=== PATIENT | female | born 1965 | race Caucasian/White ===

== ENCOUNTER 2019-02-19 19:00 | Inpatient (IN) | payer BC ==
--- OUTSIDE RECORDS SUMMARY | 2019-02-19 19:01 | XMS REPORT ---
:1965 [facility] [address] [place] [address] Care Team Providers Name Role Phone Unavailable Unavailable Unavailable Payers Payer Name Policy Type Policy Number Effective Date Expiration Date Problems This patient has no known problems. Allergies, Adverse Reactions, Alerts Allergy Allergy Status Severity Reaction(s) Onset Inactive Treating Comments Name Type Date Date Clinician No Known DA Active U 2019-01 Allergies 11 00:00:0 0 Medications This patient has no known medications. Results Test Description Test Time Test Comments Text Results Atomic Results Result Comments BASIC METABOLIC PANEL 2019-02-10 06:30:00 Test Item Value Reference Range Comments SODIUM (test code=NA) 140 mmol/L 136-145 POTASSIUM (test code=K) 4.5 mmol/L 3.5-5.1 CHLORIDE (test code=CL) 104.0 mmol/L 98-107 CARBON DIOXIDE (test code=CO2) 26.1 mmol/L 21-32 GLUCOSE (test code=GLU) 102 mg/dL 70-110 BLOOD UREA NITROGEN (test 15 mg/dL 7-18 code=BUN) GLOMERULAR FILTRATION RATE (test 45.3 >60 Unit of measure: mL/min/1.73 code=GFR) [id number] Range:Healthy Adults >90 mL/min/1.73 m2 For Chronic Kidney Disease: Stage II Mild Decrease in GFR 60-90 Stage III Moderate Decrease in GFR 30-59 Stage IV Severe Decrease in GFR 15-29 Stage V Kidney Failure <15 CREATININE (test code=CREAT) 1.23 mg/dL 0.55-1.30 CALCIUM (test code=CA) 8.5 mg/dL 8.2-10.1 HGB [id number] 06:07:00 Test Item Value Reference Range Comments HEMOGLOBIN (test code=HGB) 11.6 g/dL 12-16 HEMATOCRIT (test code=HCT) 36.4 % 37-47 PROTHROMBIN [id number] 14:21:00 Test Item Value Reference Range Comments PROTHROMBIN TIME PATIENT 11.7 secs 10.1-12.5 (test code=PTP) INTERNATIONAL NORMAL RATIO 1.05 <2.0 RECOMMENDED THERAPEUTIC RANGE (test code=INR) FOR ORAL ANTICOAGULANTTREATMENT: CONDITION INRProphylaxis of venous thrombosis in 2.0 - 3.0 high-risk medical or surgical patientsTreatment of venous thrombosis 2.0 - 3.0Prevention of embolism 2.0 - 3.0Prevention of recurrent embolism, or 3.0 - 4.5 patients with mechanical prosthetic intravascular valves IS PATIENT ON ANTICOAGULANTS ? [facility] been notified if Patient is on Heparin Drip? NOIf Yes, orderCBC, OCCULT BLOOD, PT every other day NTHROMBOPLASTIN TIME [id number] 14:21:00 Test Item Value Reference Range Comments PTT ACTIVATED (test 42.3 secs 24.9-37.0 VERIFIED BY REPEAT code=APTT) ANALYSIS.CRITICAL VALUE CALLED TO [facility] WITH ' OFFICEREAD BACK & CONFIRMED? TESSY HERNANDEZAEG 01/26/19 1420 IS PATIENT ON ANTICOAGULANTS ? [facility] been notified if Patient is on Heparin Drip? NOIf Yes, orderCBC, OCCULT BLOOD, PT every other day NCOMPREHENSIVE METABOLIC [id number] 13:08:00 Test Item Value Reference Range Comments SODIUM (test code=NA) 144 mmol/L 136-145 POTASSIUM (test code=K) 4.3 mmol/L 3.5-5.1 CHLORIDE (test code=CL) 107.0 mmol/L 98-107 CARBON DIOXIDE (test code=CO2) 33.8 mmol/L 21-32 GLUCOSE (test code=GLU) 79 mg/dL 70-110 BLOOD UREA NITROGEN (test 18 mg/dL 7-18 code=BUN) GLOMERULAR FILTRATION RATE 53.8 >60 Unit of measure: (test code=GFR) mL/min/1.73 [id number] Range:Healthy Adults >90 mL/min/1.73 m2 For Chronic Kidney Disease: Stage II Mild Decrease in GFR 60-90 Stage III Moderate Decrease in GFR 30-59 Stage IV Severe Decrease in GFR 15-29 Stage V Kidney Failure <15 CREATININE (test code=CREAT) 1.06 mg/dL 0.55-1.30 TOTAL PROTEIN (test code=PROT) 7.0 g/dL 6.4-8.2 ALBUMIN (test code=ALB) 3.6 g/dL 3.4-5.0 GLOBULIN (test code=GLOB) 3.4 g/dL 2.2-4.2 ALBUMIN/GLOBULIN RATIO (test 1.1 0.7-2.0 code=A/G) CALCIUM (test code=CA) 9.3 mg/dL 8.2-10.1 BILIRUBIN TOTAL (test 0.27 mg/dL 0.2-1.00 code=BILT) SGOT/AST (test code=AST) 20.0 U/L 15-37 SGPT/ALT (test code=ALT) 28.0 U/L 12-78 Please note new normal range. ALKALINE PHOSPHATASE TOTAL 103 U/L 46-116 (test code=ALKP) CBC W/AUTO [id number] 12:29:00 Test Item Value Reference Range Comments WHITE BLOOD CELL (test code=WBC) 7.9 K/mm3 5.8-11.0 RED BLOOD CELL (test code=RBC) 4.88 M/mm3 4.2-5.4 HEMOGLOBIN (test code=HGB) 12.8 g/dL 12-16 HEMATOCRIT (test code=HCT) 40.4 % 37-47 MEAN CELL VOLUME (test code=MCV) 83 fL 80-98 MEAN CELL HGB (test code=MCH) 26.2 pg 27-34 MEAN CELL HGB CONCENTRATION (test code=MCHC) 31.7 g/dL 30.8-34.1 RED CELL DISTRIBUTION WIDTH (test code=RDW) 14.1 % 11-16 PLT (test code=PLT) 176 K/mm3 130-400 MEAN PLATELET VOLUME (test code=MPV) 13.7 fL 8.9-12.1 NEUTROPHIL % (test code=NT%) 68.2 % 45-70 LYMPHOCYTE % (test code=LY%) 20.9 % 20-40 MONOCYTE % (test code=MO%) 7.8 % 3-10 EOSINOPHIL % (test code=EO%) 2.3 % 1-5 BASOPHIL % (test code=BA%) 0.5 % 0.0-1.1 NEUTROPHIL # (test code=NT#) 5.40 K/mm3 2.00-7.50 LYMPHOCYTE # (test code=LY#) 1.65 K/mm3 1.50-4.00 MONOCYTE # (test code=MO#) 0.62 K/mm3 0.2-0.8 EOSINOPHIL # (test code=EO#) 0.18 K/mm3 0.04-0.4 BASOPHIL # (test code=BA#) 0.04 K/mm3 0.02-0.10 MANUAL DIFF REQUIRED (test code=MDIFF) NO MANUAL DIFF NUCLEATED RED BLOOD CELL (test code=NRBC) 0 % 0-0
--- OUTSIDE RECORDS SUMMARY | 2019-02-19 19:02 | XMS REPORT ---
:1965 [facility] Team Providers Name Role Phone Kathy Duran Provider Role Unavailable Allergies, Adverse Reactions, Alerts Substance Reaction Event Type N.K.D.A. Info Not Available Non Drug Allergy Problems Problem Type Condition Code Onset Dates Condition Status Assessment History of kidney removal Z90.5 Active Assessment Acute coccygeal pain M53.3 Active Assessment Abnormal kidney function N28.9 Active Assessment Abnormal CBC R79.89 Active Assessment Leukocytosis, unspecified type D72.829 Active Assessment Bruising T14.8XXA Active Assessment Syncope, unspecified syncope type R55 Active Problem Pain in right hip M25.551 Active Problem Pain in right knee M25.561 Active Problem History of kidney removal Z90.5 Active Problem Onychomycosis B35.1 Active Problem Tinea pedis of both feet B35.3 Active Problem Fatigue, unspecified type R53.83 Active Problem Syncope, unspecified syncope type R55 Active Problem Leukocytosis, unspecified type D72.829 Active Problem Hypothyroidism E03.9 Active Problem Depression F32.9 Active Problem Abnormal kidney function N28.9 Active Problem Fibrocystic breast N60.19 Active Problem Acute coccygeal pain M53.3 Active Problem Decreased sex drive R68.82 Active Problem Abnormal CBC R79.89 Active Problem Bruising T14.8XXA Active Problem Hypothyroidism, unspecified type E03.9 Active Problem Obesity (BMI 30-39.9) E66.9 Active Problem Palpitations R00.2 Active Problem Depression, unspecified depression F32.9 Active type Problem Pain in left knee M25.562 Active Problem Pain in left hip M25.552 Active Problem Obesity affecting in O99.212 Active second trimester Problem Other chronic pain G89.29 Active Medications Medication Code Code Instructions Start End Status Dosage System Date Date Levothyroxine [facility] 77937923405 75 MCG Orally Active 1 tablet on Sodium Once a day an empty stomach in the morning Venlafaxine HCl [facility] 26715531763 75 MG Orally Active 1 capsule ER Once a day with food Loratadine [facility] 84691862785 10 MG Orally Dec 17, Active 1 tablet Once a day 2018 Ketoconazole [facility] 77178669975 2 % Externally May 15June Active 1 application Once a day 2018, to both feet 2018 [place] ND 39355105355 10 % May 15August 13, Active 1 application Externally 2018 2019 to toenails Once a day of both feet Calcium ND 0 600-400 Active 1 tablet with Carbonate-Vit MG-UNIT Orally meals D-Min Twice a day Multivitamin [facility] 58116300313 - Orally Active not defined Adult Diflucan [facility] 77894594555 150 MG Orally Active 1 tablet Amoxicillin-Pot [facility] 60387328436 875-125 MG Active 1 tablet Clavulanate Orally every 12 hrs Duavee [facility] 53349537100 0.45-20 MG Active 1 tablet Orally Once a day Vitamin B-12 [facility] 12077213791 100 MCG Orally Active not defined Ferrous Sulfate [facility] 72110611971 325 (65 Fe) MG Active 1 tablet Orally Once a day Results No Known Results Summary Purpose eClinicalWorks Submission
--- OUTSIDE RECORDS SUMMARY | 2019-02-19 19:02 | XMS REPORT ---
:1965 [facility] Team Providers Name Role Phone Kathy Duran Provider Role Unavailable Allergies, Adverse Reactions, Alerts Substance Reaction Event Type N.K.D.A. Info Not Available Non Drug Allergy Problems Problem Type Condition Code Onset Dates Condition Status Assessment Respiratory symptoms R09.89 Active Assessment URI, acute J06.9 Active Assessment Acute pharyngitis, unspecified J02.9 Active etiology Problem History of kidney removal Z90.5 Active Problem Pain in right knee M25.561 Active Problem Onychomycosis B35.1 Active Problem Fibrocystic breast N60.19 Active Problem Fatigue, unspecified type R53.83 Active Problem Decreased sex drive R68.82 Active Problem Tinea pedis of both feet B35.3 Active Problem Abnormal kidney function N28.9 Active Problem Syncope, unspecified syncope type R55 Active Problem Palpitations R00.2 Active Problem Hypothyroidism E03.9 Active Problem Skin lesion L98.9 Active Problem Depression F32.9 Active Problem Bruising T14.8XXA Active Problem Acute coccygeal pain M53.3 Active Problem Leukocytosis, unspecified type D72.829 Active Problem Abnormal CBC R79.89 Active Problem Obesity (BMI 30-39.9) E66.9 Active Problem Obesity affecting in O99.212 Active second trimester Problem Depression, unspecified depression F32.9 Active type Problem Hypothyroidism, unspecified type E03.9 Active Problem Pain in left hip M25.552 Active Problem Pain in right hip M25.551 Active Problem Other chronic pain G89.29 Active Problem Pain in left knee M25.562 Active Medications Medication Code Code Instructions Start End Status Dosage System Date Date Loratadine [facility] 08343772075 10 MG Orally Dec 17, Active 1 tablet Once a day 2018 Levothyroxine [facility] 31580340326 75 MCG Orally Active 1 tablet on Sodium Once a day an empty stomach in the morning Amoxicillin-Pot ND 43110440170 875-125 MG Active 1 tablet Clavulanate Orally every 12 hrs Augmentin [facility] 36798468117 500-125 MG October 13Oct 23, Active 1 tablet Orally every 2018 2019 hrs Diflucan [facility] 45270941448 150 MG Orally 1 October 13September Active as directed tablet now; 2018, then repeat 2019 after completing abx. Multivitamin [facility] 18618604958 - Orally Active not defined Adult Ferrous Sulfate [facility] 17828508693 325 (65 Fe) MG Active 1 tablet Orally Once a day Duavee [facility] 90827351688 0.45-20 MG Active 1 tablet Orally Once a day Venlafaxine HCl [facility] 85119146837 75 MG Orally Active 1 capsule ER Once a day with food Diflucan [facility] 83233316404 150 MG Orally Active 1 tablet Vitamin B-12 [facility] 60023642187 100 MCG Orally Active not defined Calcium NDC 0 600-400 MG-UNIT Active 1 tablet Carbonate-Vit Orally Twice a with meals D-Min day Results Name Result Date Reference Range Unit Abnormality Flag STREP A RAPID ----Result Negative [id number] Summary Purpose eClinicalWorks Submission
--- OUTSIDE RECORDS SUMMARY | 2019-02-19 19:02 | XMS REPORT ---
:1965 Author Organization eClinicalWorks Care Team Providers Name Role Phone Kathy Duran Provider Role Unavailable Allergies, Adverse Reactions, Alerts Substance Reaction Event Type N.K.D.A. Info Not Available Non Drug Allergy Problems Problem Type Condition Code Onset Dates Condition Status Problem Depression F32.9 Active Problem Depression, unspecified depression F32.9 Active type Problem Hypothyroidism E03.9 Active Problem Pain in right hip M25.551 Active Problem Pain in left hip M25.552 Active Problem Pain in right knee M25.561 Active Problem Palpitations R00.2 Active Problem Hypothyroidism, unspecified type E03.9 Active Problem Pain in left knee M25.562 Active Problem Other chronic pain G89.29 Active Assessment Pain in left hip M25.552 Active Assessment Influenza vaccination administered Z23 Active at current visit Assessment Pain in right hip M25.551 Active Assessment Pain in left knee M25.562 Active Assessment Other chronic pain G89.29 Active Problem History of kidney removal Z90.5 Active Assessment Pain in right knee M25.561 Active Problem Fibrocystic breast N60.19 Active Medications Medication Code Code Instructions Start End Date Status Dosage System Date [facility] 79641251915 0.45-20 MG Active 1 tablet Orally Once a day Progesterone ND 16955064425 100 mg Orally Dec 24 Active 1 capsule Micronized Once daily 2017 Ferrous Sulfate [facility] 90547696539 325 (65 Fe) MG Active 1 tablet Orally Once a day Calcium NDC 0 600-400 MG-UNIT Active 1 tablet Carbonate-Vit Orally Twice a with meals D-Min day Loratadine ND 63696429822 10 MG Orally June Active 1 tablet Once a day 2018 Venlafaxine HCl ND 49265177486 75 MG Orally Active 1 capsule ER Once a day with food Diflucan [facility] 54206736859 150 MG Orally Active 1 tablet Amoxicillin-Pot ND 02593899233 875-125 MG Active 1 tablet Clavulanate Orally every 12 hrs Multivitamin [facility] 75815016642 - Orally Active not Adult defined Levothyroxine [facility] 61852747812 75 MCG Orally Active 1 tablet Sodium Once a day on an empty stomach in the morning Vitamin B-12 [facility] 22181483466 100 MCG Orally Active not defined Results No Known Results Immunizations Vaccine Administration Date Flucelvax Dec 17, 2017 Summary Purpose eClinicalWorks Submission
--- OUTSIDE RECORDS SUMMARY | 2019-02-19 19:02 | XMS REPORT ---
:1965 Author Organization eClinicalWorks Care Team Providers Name Role Phone Kathy Duran Provider Role Unavailable Allergies No Known Allergies Problems Problem Type Condition Code Onset Dates Condition Status Problem Palpitations R00.2 Active Problem Hypothyroidism, unspecified type E03.9 Active Problem Depression, unspecified depression F32.9 Active type Problem History of kidney removal Z90.5 Active Problem Fibrocystic breast N60.19 Active Problem Depression F32.9 Active Problem Hypothyroidism E03.9 Active Problem Pain in right hip M25.551 Active Problem Pain in left hip M25.552 Active Problem Pain in right knee M25.561 Active Problem Obesity (BMI 30-39.9) E66.9 Active Problem Obesity affecting in O99.212 Active second trimester Problem Pain in left knee M25.562 Active Problem Other chronic pain G89.29 Active Medications No Known Medications Results No Known Results Summary Purpose eClinicalWorks Submission
--- OUTSIDE RECORDS SUMMARY | 2019-02-19 19:02 | XMS REPORT ---
[...] depression F32.9 Active type Problem Pain in right hip M25.551 Active Assessment Depression, unspecified depression F32.9 Active type Problem Pain in left hip M25.552 Active Problem Pain in right knee M25.561 Active Problem Obesity (BMI 30-39.9) E66.9 Active Problem Obesity affecting in O99.212 Active second trimester Problem Pain in left knee M25.562 Active Problem Other chronic pain G89.29 Active Assessment Obesity (BMI 30-39.9) E66.9 Active Assessment Dietary counseling and surveillance Z71.3 Active Assessment History of kidney removal Z90.5 Active Assessment Lipid screening Z13.220 Active Problem History of kidney removal Z90.5 Active Problem Fibrocystic breast N60.19 Active Assessment Hypothyroidism, unspecified type E03.9 Active Problem Depression F32.9 Active Problem Hypothyroidism E03.9 Active Medications Medication Code Code Instructions Start End Status Dosage System Date Date Venlafaxine HCl [facility] 44053141841 75 MG Orally Active 1 capsule ER Once a day with food Levothyroxine [facility] 24338066591 75 MCG Orally Active 1 tablet Sodium Once a day on an empty stomach in the morning Calcium ND 0 600-400 MG-UNIT Active 1 tablet Carbonate-Vit Orally Twice a with meals D-Min day Ferrous Sulfate ND 73587541455 325 (65 Fe) MG Active 1 tablet Orally Once a day [place] ND 50544653505 0.45-20 MG Active 1 tablet Orally Once a day Vitamin B-12 ND 32280246650 100 MCG Orally Active not defined Amoxicillin-Pot ND 33060434271 875-125 MG Active 1 tablet Clavulanate Orally every 12 hrs Diflucan [facility] 04297359731 150 MG Orally Active 1 tablet Multivitamin [facility] 00422719655 - Orally Active not Adult defined Loratadine [facility] 65052384957 10 MG Orally Dec 17, Active 1 tablet Once a day 2018 Results No Known Results Summary Purpose eClinicalWorks Submission
--- OUTSIDE RECORDS SUMMARY | 2019-02-19 19:02 | XMS REPORT ---
:1965 [facility] Team Providers Name Role Phone Kathy Duran Provider Role Unavailable Allergies, Adverse Reactions, Alerts Substance Reaction Event Type N.K.D.A. Info Not Available Non Drug Allergy Problems Problem Type Condition Code Onset Dates Condition Status Assessment Onychomycosis B35.1 Active Assessment Depression, unspecified depression F32.9 Active type Assessment Abnormal CBC R79.89 Active Assessment Obesity (BMI 30-39.9) E66.9 Active Assessment Leukocytosis, unspecified type D72.829 Active Assessment Abnormal kidney function N28.9 Active Assessment Skin lesion L98.9 Active Assessment Hypothyroidism E03.9 Active Problem History of kidney removal Z90.5 [...] Start End Status Dosage System Date Date Multivitamin ND 84333787691 - Orally Active not defined Adult Ferrous Sulfate ND 53246827417 325 (65 Fe) MG Active 1 tablet Orally Once a day Amoxicillin-Pot [facility] 55688710458 875-125 MG Active 1 tablet Clavulanate Orally every 12 hrs Venlafaxine HCl [facility] 58946389341 75 MG Orally Active 1 capsule ER Once a day with food Calcium NDC 0 600-400 MG-UNIT Active 1 tablet with Carbonate-Vit Orally Twice a meals D-Min day Levothyroxine [facility] 85438636444 75 MCG Orally Active 1 tablet on Sodium Once a day an empty stomach in the morning Duavee [facility] 90533644111 0.45-20 MG Active 1 tablet Orally Once a day Loratadine [facility] 00510704315 10 MG Orally Oct Active 1 tablet Once a day 2018 Diflucan [facility] 03580043402 150 MG Orally Active 1 tablet Mupirocin [facility] 98350098294 2 % Externally August Active 1 application Three times a 25, 05, to affected day x 10 days 2018 2018 area Vitamin B-12 [facility] 60706064647 100 MCG Orally Active not defined Results No Known Results Summary Purpose eClinicalWorks Submission
--- OUTSIDE RECORDS SUMMARY | 2019-02-19 19:02 | XMS REPORT ---
:1965 Author Organization eClinicalWorks Care Team Providers Name Role Phone Kathy Duran Provider Role Unavailable Allergies No Known Allergies Problems Problem Type Condition Code Onset Dates Condition Status Problem Obesity (BMI 30-39.9) E66.9 Active Problem Other chronic pain G89.29 Active Problem Pain in left knee M25.562 Active Problem Tinea pedis of both feet B35.3 Active Problem Fatigue, unspecified type R53.83 Active Problem Onychomycosis B35.1 Active Problem Pain in right knee M25.561 Active Problem Pain in right hip M25.551 Active Problem Decreased sex drive R68.82 Active Problem Pain in left hip M25.552 Active Problem History of kidney removal Z90.5 Active Problem Fibrocystic breast N60.19 Active Problem Palpitations R00.2 Active Problem Depression, unspecified depression F32.9 Active type Problem Depression F32.9 Active Problem Hypothyroidism, unspecified type E03.9 Active Problem Hypothyroidism E03.9 Active Problem Obesity affecting in O99.212 Active second trimester Medications No Known Medications Results No Known Results Summary Purpose eClinicalWorks Submission
--- OUTSIDE RECORDS SUMMARY | 2019-02-19 19:02 | XMS REPORT ---
[...] Tinea pedis of both feet B35.3 Active Assessment Onychomycosis B35.1 Active Problem Fatigue, unspecified type R53.83 Active Assessment Tinea pedis of both feet B35.3 Active Assessment Decreased sex drive R68.82 Active Problem Onychomycosis B35.1 Active Problem Pain in right knee M25.561 Active Problem Pain in right hip M25.551 Active Problem Decreased sex drive R68.82 Active Problem Pain in left hip M25.552 Active Problem History of kidney removal Z90.5 Active Problem Fibrocystic breast N60.19 Active Assessment Fatigue, unspecified type R53.83 Active Problem Palpitations R00.2 Active Problem Depression, unspecified depression F32.9 Active type Problem Depression F32.9 Active Problem Hypothyroidism, unspecified type E03.9 Active Problem Hypothyroidism E03.9 Active Problem Obesity affecting in O99.212 Active second trimester Medications Medication Code Code Instructions Start End Status Dosage System Date Date Calcium NDC 0 600-400 Active 1 tablet with Carbonate-Vit MG-UNIT Orally meals D-Min Twice a day Ferrous Sulfate ND 64426209675 325 (65 Fe) MG Active 1 tablet Orally Once a day Loratadine ND 97589034810 10 MG Orally Dec 17, Active 1 tablet Once a day 2018 Venlafaxine HCl ND 15938845098 75 MG Orally Active 1 capsule ER Once a day with food [place]e ND 08667296211 0.45-20 MG Active 1 tablet Orally Once a day [place] ND 20784797321 10 % May 15August 13, Active 1 application Externally 2018 2018 to toenails Once a day of both feet Multivitamin [facility] 99916367219 - Orally Active not defined Adult Amoxicillin-Pot [facility] 40197592000 875-125 MG Active 1 tablet Clavulanate Orally every 12 hrs Diflucan [facility] 41727833866 150 MG Orally Active 1 tablet Ketoconazole [facility] 94128785272 2 % Externally May 15June Active 1 application Once a day 2018, to both feet 2018 Vitamin B-12 [facility] 67458849756 100 MCG Orally Active not defined Levothyroxine [facility] 11880528661 75 MCG Orally Active 1 tablet on Sodium Once a day an empty stomach in the morning Results No Known Results Summary Purpose eClinicalWorks Submission
[2019-02-19] MEDS ORDERED: ONDANSETRON 4 MG/2 ML VIAL ONE ×2 (19:37→22:23)
[2019-02-19] MEDS ORDERED: MORPHINE 4 MG/ML SYR ONE ×2 (19:37→22:21)
[2019-02-19] MEDS ORDERED: NA CHLORIDE 0.9% 1,000 ML ONE (19:37)
[2019-02-19] MEDS ORDERED: FAMOTIDINE 20 MG/2 ML VIAL IV ONE (19:38)
[2019-02-19 20:02] LABS: Absolute Lymphocytes (CBC) 1.8 K/uL (0.7-4.9); Basophils % 0.3 % (0-1.3); Hematocrit 31.6 % (36.0-45.0); Lymphocytes % 15.7 % (15.3-44.8); MPV 9.7 fL (7.6-11.3); Protime INR 1.22; RBC Red Blood Cell Count 3.96 M/uL (3.86-4.86)
[2019-02-19] MEDS ORDERED: METOPROLOL TAR 50 MG TAB ONE (20:05)
[2019-02-19] MEDS ORDERED: METOPROLOL TARTRATE 5 MG/5 ML INJ IV ONE (20:05)
--- NOTE | 2019-02-19 20:18 | RAD REPORT ---
EXAM DESCRIPTION: Maksim Single View02/19/2019 7:54 pm CLINICAL HISTORY: Abdominal pain COMPARISON: none FINDINGS: The lungs appear clear of acute infiltrate. The heart is normal size IMPRESSION: No acute abnormalities displayed
[2019-02-19 20:26] LABS: ALT/SGPT 56 U/L (12-78); AST/SGOT 124 U/L (15-37); Albumin 3.4 g/dL (3.4-5.0); Alkaline Phosphatase 226 U/L (45-117); BUN Blood Urea Nitrogen 20 mg/dL (7-18); Bicarbonate 31 mmol/L (21-32); Bilirubin Direct 0.2 mg/dL (0-0.2); Bilirubin Total 0.5 mg/dL (0.2-1.0); Glucose Level 80 mg/dL (74-106); Lipase 166 U/L (73-393); Magnesium 2.3 mg/dL (1.8-2.4); NT PRO-BNP 255 pg/mL (<125); Potassium 3.6 mmol/L (3.5-5.1); Protein, Total 7.4 g/dL (6.4-8.2); Sodium Level 142 mmol/L (136-145); Troponin (Emerg Dept Use Only) < 0.02 ng/mL (0.0-0.045)
--- NOTE | 2019-02-19 20:34 | RAD REPORT ---
EXAM DESCRIPTION: USExtrem Venous W Compress Bil02/19/2019 8:26 pm CLINICAL HISTORY: Bilateral leg swelling COMPARISON: none FINDINGS: The common femoral, superficial femoral, popliteal and posterior tibial veins bilaterally are compressible and demonstrate augmentation. Doppler demonstrates good flow. 3 centimeter heterogeneous structure is present within the posterior left knee IMPRESSION: No evidence of deep venous thrombosis involving either lower extremity. 3 centimeter heterogeneous structure posterior left knee presumably a hematoma. It is recommended yogesh t the patient a followup ultrasound in 4 weeks for re-evaluation
[2019-02-19 20:50] LABS: Thyroid Stimulating Hormone 4.3 uIU/mL (0.360-3.740)
[2019-02-19 21:00] LABS: Urine Blood NEGATIVE (NEG); Urine Glucose NEGATIVE (NEG); Urine Protein NEGATIVE (NEG)
--- NOTE | 2019-02-19 21:13 | ER ---
Nurse's Notes [facility] Name: Princess Drew Age: 53 yrs Sex: Female : 1965 Arrival Date: 02/19/2019 Time: 19:00 Bed 5 Private MD: Kathy Duran Diagnosis: Atrial fibrillation and flutter-new;Abdominal tenderness;Cholelithiasis Presentation: 02/19 19:15 Presenting complaint: Patient states: epigastric and right upper and lower quadrant ak1 pain started at 1800. pt denies N/V. pt stated last BM was yesterday. pt is taking muscle relaxers, [place], tramadol for recent knee sx. Transition of care: patient was not received from another setting of care. Onset of symptoms was February 19, 2019. Risk Assessment: Do you want to hurt yourself or someone else? Patient reports no desire to harm self or others. Initial Sepsis Screen: Does the patient meet any 2 criteria? No. Patient's initial sepsis screen is negative. Does the patient have a suspected source of infection? No. Patient's initial sepsis screen is negative. Care prior to arrival: None. 19:15 Method Of Arrival: Ambulatory ak1 19:15 Acuity: PIYUSH 3 ak1 Triage Assessment: 19:17 General: Appears in no apparent distress. uncomfortable, Behavior is cooperative, ak1 crying. Pain: Complains of pain in epigastric area, right upper quadrant and right lower quadrant. EENT: No signs and/or symptoms were reported regarding the EENT system. Neuro: No deficits noted. Cardiovascular: No deficits noted. Respiratory: No deficits noted. GI: Abdomen is round non-distended, Bowel sounds present X 4 quads. Reports lower abdominal pain, upper abdominal pain, epigastric pain, Patient currently denies nausea, vomiting. : No signs and/or symptoms were reported regarding the genitourinary system. Derm: No signs and/or symptoms reported regarding the dermatologic system. Musculoskeletal: No signs and/or symptoms reported regarding the musculoskeletal system. [employer]: 23:35 LMP N/A - Post-menopause, 6 years ago rr5 Historical: - Allergies: 19:17 No Known Allergies; ak1 - Home Meds: 19:17 Tramadol Oral [Active]; [place] Oral [Active]; muscle relaxer [Active]; Xarelto oral oral ak1 [Active]; - PMHx: 19:17 None; ak1 - PSHx: 19:17 Knee surgery; left kidney removed; ak1 - Immunization history:: Adult Immunizations unknown, Flu vaccine is not up to date. - Social history:: Smoking status: Patient uses tobacco products, Patient/guardian denies using alcohol. - Ebola Screening: : No symptoms or risks identified at this time. - Family history:: not pertinent. Screenin:18 Abuse screen: Denies threats or abuse. Denies injuries from another. Nutritional ak1 screening: No deficits noted. Tuberculosis screening: No symptoms or risk factors identified. Fall Risk None identified. Assessment: 21:04 Reassessment: Patient appears in no apparent distress at this time. Patient and/or ak1 family updated on plan of care and expected duration. Pain level reassessed. Patient is alert, oriented x 3, equal unlabored respirations, skin warm/dry/pink. US at bedside. pt given blankets to place under left knee for comfort. Patient states feeling better. Patient states symptoms have improved. 21:26 Reassessment: pt and informed of need for admit and wait for hospitalist and ak1 room assignment. 22:20 Reassessment: Patient appears in no apparent distress at this time. complaining of rr5 abdominal pain pain score 10/10. ED provider informed with order made and carried out. 22:41 Reassessment: Patient appears in no apparent distress at this time. No changes from ak1 previously documented assessment. Patient is alert, oriented x 3, equal unlabored respirations, skin warm/dry/pink. Patient states symptoms have improved. Vital Signs: 19:14 BP 172 / 98; Pulse 96; Resp 18; Temp 98.5(O); Pulse Ox 98% on R/A; Weight 87.54 kg (R); ak1 Height 5 ft. 10 in. (177.80 cm) (R); Pain 8/10; 19:57 BP 152 / 77; Pulse 84; Resp 14; Pulse Ox 98% on R/A; ak1 20:35 BP 142 / 81; Pulse 74; Resp 14; Pulse Ox 98% on R/A; ak1 21:05 BP 140 / 80; Pulse 70; Resp 20; Pulse Ox 98% on R/A; ak1 22:03 BP 140 / 78; Pulse 73; Pulse Ox 98% on R/A; ak1 22:41 BP 139 / 75; Pulse 65; Resp 14; Temp 98.4; Pulse Ox 97% on R/A; ak1 23:05 BP 124 / 73; Pulse 68; Resp 14; Temp 98.4; Pulse Ox 98% on R/A; ak1 19:14 Body Mass Index 27.69 (87.54 kg, 177.80 cm) ak1 ED Course: 19:00 Patient arrived in ED. as 19:00 Kathy Duran MD is Private Physician. as 19:14 Kristy Prado, RN is Primary Nurse. ak1 19:14 Arm band placed on Patient placed in an exam room, on a stretcher, on pulse oximetry, ak1 Patient notified of wait time. 19:16 Triage completed. ak1 19:18 Patient has correct armband on for positive identification. Placed in gown. Bed in low ak1 position. Call light in reach. Side rails up X 1. Adult w/ patient. Pulse ox on. NIBP on. 19:20 Janes Moe MD is Attending Physician. fuad 19:34 Inserted saline lock: 20 gauge in right forearm, using aseptic technique. Blood rr5 collected. 19:55 XRAY Chest (1 view) In Process Unspecified. EDMS 20:26 US Extremity Venous W Compression Stiven In Process Unspecified. EDMS 21:11 Julia Foster MD is Hospitalizing Provider. fuad 21:12 US Abdomen Limited In Process Unspecified. EDMS 21:27 No provider procedures requiring assistance completed. Patient admitted, IV remains in ak1 place. Administered Medications: 19:44 Drug: NS 0.9% 1000 ml Route: IV; Rate: 1 bolus; Site: right hand; rr5 20:43 Follow up: IV Status: Completed infusion; IV Intake: 1000ml ak1 19:45 Drug: Pepcid 20 mg Route: IVP; Site: right hand; rr5 21:11 Follow up: Response: No adverse reaction ak1 19:45 Drug: morphine 4 mg Route: IVP; Site: right hand; rr5 20:43 Follow up: Response: No adverse reaction; Pain is decreased ak1 19:45 Drug: Zofran 4 mg Route: IVP; Site: right hand; rr5 20:43 Follow up: Response: No adverse reaction ak1 20:11 Drug: Lopressor (metoprolol TARTRATE) 50 mg Route: PO; ak1 20:44 Follow up: Response: No adverse reaction ak1 20:23 Drug: Lopressor 5 mg Route: IVP; Site: right hand; ak1 20:44 Follow up: Response: No adverse reaction; Blood pressure is lowered ak1 20:50 CANCELLED (Duplicate Order): Xarelto 10 mg PO once fuad 21:26 Drug: Zosyn 3.375 grams Route: IVPB; Infused Over: 60 mins; Site: right hand; ak1 22:25 Follow up: IV Status: Completed infusion ak1 22:22 Drug: Zofran 4 mg Route: IVP; Site: right forearm; rr5 22:42 Follow up: Response: No adverse reaction; Nausea is decreased ak1 22:24 Drug: Heparin ([place] Drip) 12 units/kg/hr - (HEParin 53436 units, D5W 500 ml) ak1 {Co-Signature: rr5 (Salbador Chase RN).} Route: IV; Rate: calculated rate; Site: right hand; 22:42 Follow up: IV Status: Infusion continued upon admission ak1 22:24 Drug: morphine 4 mg {Note: rass 0.} Route: IVP; Site: right forearm; rr5 22:42 Follow up: Response: No adverse reaction; Pain is decreased ak1 Intake: 20:43 IV: 1000ml; Total: 1000ml. ak1 Outcome: 21:12 Decision to Hospitalize by Provider. [facility] 22:42 Condition: stable ak1 22:42 Instructed on the need for admit. 23:29 Admitted to Tele accompanied by tech, via stretcher, room 429, with chart, Report rr5 called to haylee 02/20 00:13 Patient left the ED. aa1 Signatures: Dispatcher [employer] EDJuanita Nix RN RN aa1 Janes Moe MD MD cha Martinez, Amelia as Krenek, Amber RN RN ak1 Salbador Chase RN RN rr5 Salbador Chase RN rr5
--- NOTE | 2019-02-19 21:13 | EDPHYS ---
Physician Documentation [facility] Name: Princess Drew Age: 53 yrs Sex: Female : 1965 Arrival Date: 02/19/2019 Time: 19:00 Bed 5 Private MD: Kathy Duran ED Physician Janes Moe HPI: 02/19 19:30 This 53 yrs old Female presents to ER via Ambulatory with complaints of fuad Epigastric Pain. 19:30 The patient presents with decreased range of motion, pain, swelling, tenderness. The fuad complaints affect the lateral aspect of left knee, lateral aspect of left calf, medial aspect of left knee, medial aspect of left calf, left knee and left aguirre. Context: The problem was sustained total knee 02/09. Onset: The symptoms/episode began/occurred 2 week(s) ago. Modifying factors: The symptoms are alleviated by remaining still, the symptoms are aggravated by movement, weight bearing. Associated signs and symptoms:. The patient presents with abdominal pain in the epigastric area, in the upper abdomen. Onset: The symptoms/episode began/occurred just prior to arrival. Treatment prior to arrival includes: no previous treatment. [place]: 23:35 LMP N/A - Post-menopause, 6 years ago rr5 Historical: - Allergies: 19:17 No Known Allergies; ak1 - Home Meds: 19:17 Tramadol Oral [Active]; [place] Oral [Active]; muscle relaxer [Active]; Xarelto oral oral ak1 [Active]; - PMHx: 19:17 None; ak1 - PSHx: 19:17 Knee surgery; left kidney removed; ak1 - Immunization history:: Adult Immunizations unknown, Flu vaccine is not up to date. - Social history:: Smoking status: Patient uses tobacco products, Patient/guardian denies using alcohol. - Ebola Screening: : No symptoms or risks identified at this time. - Family history:: not pertinent. ROS: 19:30 Constitutional: Negative for fever, chills, and weight loss, Eyes: Negative for injury, fuad pain, redness, and discharge, ENT: Negative for injury, pain, and discharge, Neck: Negative for injury, pain, and swelling, Cardiovascular: Negative for chest pain, palpitations, and edema, Respiratory: Negative for shortness of breath, cough, wheezing, and pleuritic chest pain, Back: Negative for injury and pain, : Negative for injury, bleeding, discharge, and swelling, Skin: Negative for injury, rash, and discoloration, Neuro: Negative for headache, weakness, numbness, tingling, and seizure, Psych: Negative for depression, anxiety, suicide ideation, homicidal ideation, and hallucinations, Allergy/Immunology: Negative for hives, rash, and allergies, Endocrine: Negative for neck swelling, polydipsia, polyuria, polyphagia, and marked weight changes, Hematologic/Lymphatic: Negative for swollen nodes, abnormal bleeding, and unusual bruising. 19:30 Abdomen/GI: Positive for abdominal pain, of the right upper quadrant and left upper quadrant. 19:30 MS/extremity: Positive for laceration, swelling, tenderness, of the left leg. Exam: 19:30 Constitutional: This is a well developed, well nourished patient who is awake, alert, fuad and in no acute distress. Head/Face: Normocephalic, atraumatic. Eyes: Pupils equal round and reactive to light, extra-ocular motions intact. Lids and lashes normal. Conjunctiva and sclera are non-icteric and not injected. Cornea within normal limits. Periorbital areas with no swelling, redness, or edema. ENT: Nares patent. No nasal discharge, no septal abnormalities noted. Tympanic membranes are normal and external auditory canals are clear. Oropharynx with no redness, swelling, or masses, exudates, or evidence of obstruction, uvula midline. Mucous membranes moist. Neck: Trachea midline, no thyromegaly or masses palpated, and no cervical lymphadenopathy. Supple, full range of motion without nuchal rigidity, or vertebral point tenderness. No Meningismus. Chest/axilla: Normal chest wall appearance and motion. Nontender with no deformity. No lesions are appreciated. Cardiovascular: Regular rate and rhythm with a normal S1 and S2. No gallops, murmurs, or rubs. Normal PMI, no JVD. No pulse deficits. Respiratory: Lungs have equal breath sounds bilaterally, clear to auscultation and percussion. No rales, rhonchi or wheezes noted. No increased work of breathing, no retractions or nasal flaring. Back: No spinal tenderness. No costovertebral tenderness. Full range of motion. Skin: Warm, dry with normal turgor. Normal color with no rashes, no lesions, and no evidence of cellulitis. Neuro: Awake and alert, GCS 15, oriented to person, place, time, and situation. Cranial nerves II-XII grossly intact. Motor strength 5/5 in all extremities. Sensory grossly intact. Cerebellar exam normal. Normal gait. Psych: Awake, alert, with orientation to person, place and time. Behavior, mood, and affect are within normal limits. 19:30 Abdomen/GI: Inspection: abdomen appears normal, Bowel sounds: normal, Palpation: mild abdominal tenderness, in the epigastric area, right upper quadrant and left upper quadrant. Vital Signs: 19:14 BP 172 / 98; Pulse 96; Resp 18; Temp 98.5(O); Pulse Ox 98% on R/A; Weight 87.54 kg (R); ak1 Height 5 ft. 10 in. (177.80 cm) (R); Pain 8/10; 19:57 BP 152 / 77; Pulse 84; Resp 14; Pulse Ox 98% on R/A; ak1 20:35 BP 142 / 81; Pulse 74; Resp 14; Pulse Ox 98% on R/A; ak1 21:05 BP 140 / 80; Pulse 70; Resp 20; Pulse Ox 98% on R/A; ak1 22:03 BP 140 / 78; Pulse 73; Pulse Ox 98% on R/A; ak1 22:41 BP 139 / 75; Pulse 65; Resp 14; Temp 98.4; Pulse Ox 97% on R/A; ak1 23:05 BP 124 / 73; Pulse 68; Resp 14; Temp 98.4; Pulse Ox 98% on R/A; ak1 19:14 Body Mass Index 27.69 (87.54 kg, 177.80 cm) ak1 MDM: 19:20 Patient medically screened. [facility] 19:30 Data reviewed: vital signs, nurses notes, lab test result(s), EKG, radiologic studies, [facility] plain films, ultrasound. 02/19 19:30 Order name: Basic Metabolic Panel; Complete Time: 20:48 [facility] 02/19 19:30 Order name: CBC with Diff; Complete Time: 20:48 [facility] 02/19 19:30 Order name: LFT's; Complete Time: 20:48 [facility] 02/19 19:30 Order name: Magnesium; Complete Time: 20:48 [facility] 02/19 19:30 Order name: NT PRO-BNP; Complete Time: 20:48 [facility] 02/19 19:30 Order name: PT-INR; Complete Time: 20:48 [facility] 02/19 19:30 Order name: Troponin (emerg Dept Use Only); Complete Time: 20:48 [facility] 02/19 19:30 Order name: XRAY Chest (1 view); Complete Time: 20:48 [facility] 02/19 19:30 Order name: US Abdomen Limited [facility] 02/19 19:30 Order name: Lipase; Complete Time: 20:48 [facility] 02/19 19:36 Order name: Urine Dipstick--Ancillary (enter results); Complete Time: 21:09 [facility] 02/19 19:36 Order name: Urine --Ancillary (enter results); Complete Time: 21:09 [facility] 02/19 19:51 Order name: TSH; Complete Time: 21:09 [facility] 02/19 20:52 Order name: T4 Free; Complete Time: 21:09 [facility] 02/19 19:30 Order name: EKG; Complete Time: 19:31 [facility] 02/19 19:30 Order name: Cardiac monitoring; Complete Time: 19:37 [facility] 02/19 19:30 Order name: EKG - Nurse/Tech; Complete Time: 19:45 [facility] 02/19 19:30 Order name: IV Saline Lock; Complete Time: 19:37 [facility] 02/19 19:52 Order name: US Extremity Venous W Compression Stiven; Complete Time: 20:48 [facility] 02/19 19:30 Order name: Labs collected and sent; Complete Time: 19:37 [facility] 02/19 19:30 Order name: O2 Per Protocol; Complete Time: 19:32 [facility] 02/19 19:30 Order name: O2 Sat Monitoring; Complete Time: 19:32 [facility] 02/19 19:30 Order name: Urine Dipstick-Ancillary (obtain specimen); Complete Time: 19:32 [facility] 02/19 19:30 Order name: Urine Test (obtain specimen); Complete Time: 19:32 [facility] Administered Medications: 19:44 Drug: NS 0.9% 1000 ml Route: IV; Rate: 1 bolus; Site: right hand; rr5 20:43 Follow up: IV Status: Completed infusion; IV Intake: 1000ml ak1 19:45 Drug: Pepcid 20 mg Route: IVP; Site: right hand; rr5 21:11 Follow up: Response: No adverse reaction ak1 19:45 Drug: morphine 4 mg Route: IVP; Site: right hand; rr5 20:43 Follow up: Response: No adverse reaction; Pain is decreased ak1 19:45 Drug: Zofran 4 mg Route: IVP; Site: right hand; rr5 20:43 Follow up: Response: No adverse reaction ak1 20:11 Drug: Lopressor (metoprolol TARTRATE) 50 mg Route: PO; ak1 20:44 Follow up: Response: No adverse reaction ak1 20:23 Drug: Lopressor 5 mg Route: IVP; Site: right hand; ak1 20:44 Follow up: Response: No adverse reaction; Blood pressure is lowered ak1 20:50 CANCELLED (Duplicate Order): Xarelto 10 mg PO once fuad 21:26 Drug: Zosyn 3.375 grams Route: IVPB; Infused Over: 60 mins; Site: right hand; ak1 22:25 Follow up: IV Status: Completed infusion ak1 22:22 Drug: Zofran 4 mg Route: IVP; Site: right forearm; rr5 22:42 Follow up: Response: No adverse reaction; Nausea is decreased ak1 22:24 Drug: Heparin ([place] Drip) 12 units/kg/hr - (HEParin 29696 units, D5W 500 ml) ak1 {Co-Signature: rr5 (Salbador Chase RN).} Route: IV; Rate: calculated rate; Site: right hand; 22:42 Follow up: IV Status: Infusion continued upon admission ak1 22:24 Drug: morphine 4 mg {Note: rass 0.} Route: IVP; Site: right forearm; rr5 22:42 Follow up: Response: No adverse reaction; Pain is decreased ak1 Disposition: 02/19/19 21:12 Hospitalization ordered by Julia Foster for Inpatient Admission. Preliminary diagnosis are Atrial fibrillation and flutter - new, Abdominal tenderness, Cholelithiasis. - Bed requested for Telemetry/MedSurg (Inpatient). - Status is Inpatient Admission. aa1 - Condition is Stable. - Problem is new. - Symptoms have improved. UTI on Admission? No Signatures: Dispatcher [employer] Juanita Avila RN RN aa1 Janes Moe MD MD cha Lasagna, Tonya, RN RN tl1 Kristy Prado, RN RN ak1 Salbador Chase, DANA RN rr5 Salbador Chase RN rr5 Corrections: (The following items were deleted from the chart) 20:50 20:49 Xarelto 10 mg PO once ordered. formerly [facility] 23:04 21:12 Hospitalization Ordered by Julia Foster MD for Inpatient Admission. Preliminary tl1 diagnosis is Atrial fibrillation and flutter - new; Abdominal tenderness; Cholelithiasis. Bed requested for Telemetry/MedSurg (Inpatient). Status is Inpatient Admission. Condition is Stable. Problem is new. Symptoms have improved. UTI on Admission? No. [facility] 02/20 00:13 12 23:04 02/19/2019 21:12 Hospitalization Ordered by Julia Foster MD for Inpatient aa1 Admission. Preliminary diagnosis is Atrial fibrillation and flutter - new; Abdominal tenderness; Cholelithiasis. Bed requested for Telemetry/MedSurg (Inpatient). Status is Inpatient Admission. Condition is Stable. Problem is new. Symptoms have improved. UTI on Admission? No. tl1
[2019-02-19] MEDS ORDERED: HEPARIN/D5W 25,000 UNIT/500 ML BAG IV ONE (21:18)
[2019-02-19] MEDS ORDERED: PIPER/TAZO/NS 3.375gm 3.375 GM/100 ML BAG ONE (21:18)
--- NOTE | 2019-02-19 21:48 | RAD REPORT ---
EXAM DESCRIPTION: US - Abdomen Exam Limited - 02/19/2019 9:12 pm CLINICAL HISTORY: ABD PAIN COMPARISON: No comparisons FINDINGS: The gallbladder demonstrates multiple shadowing gallstones. No pericholecystic fluid or ga llbladder wall thickening. The common bile duct is normal measuring 3 mm. The liver demonstrates no findings of intrahepatic biliary dilatation. IMPRESSION: Cholelithiasis.
--- NOTE | 2019-02-19 23:12 | P.HP ---
Certification for Inpatient Patient admitted to: Inpatient With expected LOS: >2 Midnights Patient will require the following post-hospital care: None Practitioner: I am a practitioner with admitting privileges, knowledge of patient current condition, hospital course, and medical plan of care. 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 abdominal pain starting at 7pm prior to presentation. she states that she has not had similar episodes. on ED evaluation she is found to have several gallstones but no signs of cholecystitis. also noted on her ED evaluation - she recieved an EKG w/ demonstration of paroxysmal Afib w/ RVR. she reports that over the last 5 months she has episodes of heart racing, palpitations and dizziness. she has not sought medical evaluation. she was started on heparrin gtt without a bolus because she took her last does of xarelto prescribe for her recent LLE knee replacement due to arthritis. she denies cp, [place], fever, chills, N/V, SOB, LE swelling., she denies drugs, tobacco and drugs. Allergies No Known Allergies Allergy (Unverified 02/19/19 23:11) - Family History Mother History Unknown: Yes Notes: diabetes Review of Systems General: Other Eyes: Unremarkable ENT: Unremarkable Respiratory: Unremarkable Cardiovascular: Palpitations Gastrointestinal: Abdominal Pain Genitourinary: Unremarkable Musculoskeletal: Unremarkable Integumentary: As per HPI Neurological: Unremarkable Physical Examination - Physical Exam General: Alert, In no apparent distress, Oriented x3, Cooperative HEENT: Atraumatic, Normocephalic, PERRLA Neck: Supple Respiratory: Clear to auscultation bilaterally, Normal air movement Cardiovascular: No edema, Regular rate/rhythm (but noted to have epiisodic irregular HR. ), No rubs, No murmurs Gastrointestinal: Normal bowel sounds, Soft and benign, Non-distended, Tenderness (ttp to RUQ) Musculoskeletal: No swelling, No erythema, No warmth Integumentary: No breakdown, No tenderness/swelling, No erythema Neurological: Normal speech, Cranial nerves 3-12 intact, Normal affect External genitalia: Deferred Rectal: Deferred - Studies Laboratory Data (last 24 hrs) 02/19/19 19:34: PT 14.3 H, INR 1.22 02/19/19 19:34: WBC 11.6 H, Hgb 10.4 L, Hct 31.6 L, Plt Count 294 02/19/19 19:34: Sodium 142, Potassium 3.6, BUN 20 H, Creatinine 1.31 H, Glucose 80, Magnesium 2.3, Total Bilirubin 0.5, AST 124 H, ALT 56, Alkaline Phosphatase 226 H, Lipase 166 Assessment and Plan - Plan 53yoF admitted w/ afib w/ RVR - paroxysmal - noted on EKG on heparin gtt cardio to consult and eval obtain tsh, a1c, lipid panel, trend CE obtain TTE, UDS Cholelithiasis w/ biliary colic - new onset, noted leucocytosis analgesics ordered if pain continues then GI to be consulted DVT ppx - heparin gtt Discharge Plan: Home - Advance Directives Does patient have a Living Will: No Does patient have a Durable POA for Healthcare: No - Code Status/Comfort Care Code Status Assessed: Yes Code Status: Full Code
[2019-02-20 00:09] VITALS: BMI 28.2
[2019-02-20] MEDS ORDERED: HEPARIN/D5W 25,000 UNIT/500 ML BAG IV SCH (01:00)
[2019-02-20 01:22] LABS: CKMB Creatine Kinase MB < 1.0 ng/mL (0.3-3.6); Troponin I < 0.02 ng/mL (0.0-0.045)
[2019-02-20] MEDS: HYDROCODONE/APAP 5/325 MG TAB PO PRN ×2 (01:22→13:30)
[2019-02-20] MEDS: MORPHINE 4 MG/ML SYR IV PRN ×4 (02:20→21:52)
[2019-02-20] MEDS: ONDANSETRON 4 MG/2 ML VIAL IV PRN ×4 (02:23→21:53)
[2019-02-20] MEDS: ACETAMINOPHEN 500 MG TAB PO PRN (04:03)
[2019-02-20 07:02] LABS: Absolute Lymphocytes (CBC) 2.2 K/uL (0.7-4.9); Basophils % 0.4 % (0-1.3); Hematocrit 26.9 % (36.0-45.0); Lymphocytes % 22.5 % (15.3-44.8); MPV 9.6 fL (7.6-11.3); RBC Red Blood Cell Count 3.33 M/uL (3.86-4.86)
[2019-02-20 07:04] LABS: Protime INR 1.16
[2019-02-20 07:16] LABS: Albumin 2.6 g/dL (3.4-5.0); Bilirubin Total 0.2 mg/dL (0.2-1.0); Magnesium 2.2 mg/dL (1.8-2.4); Potassium 3.7 mmol/L (3.5-5.1); Protein, Total 5.8 g/dL (6.4-8.2)
[2019-02-20] MEDS: NA CHLORIDE 0.9% 1,000 ML IV SCH ×2 (07:16→16:35)
[2019-02-20] MEDS: METOPROLOL TAR 25 MG TAB PO SCH ×2 (07:16→17:20)
--- NOTE | 2019-02-20 07:41 | CON ---
History Of Present Illness: Mrs. Drew came to the hospital with right upper quadrant pain. About 2 weeks ago she underwent left total knee joint replacement. She has been taking tramadol and hydroco done with codeine and notes right upper quadrant and epigastric pain, little bit of nausea. She came in to be evaluated. She is in the hospital to rule out [place]. Her cardiac enzymes and EKGs suggest ev erything is fine. She does not have diabetes, hypertension, dyslipidemia. She does not use tobacco. She uses minimal alcohol. No illegal drugs. She is multiparous. She donated a kidney to her [facility] er. She is not having chest pain. She has had an ultrasound of her abdomen that indicates gallstone s and it is believed her symptoms are possibly related to that, although the gallbladder does not loo k like there is cholecystitis. Physical Examination: General: She is alert, oriented, pleasant, 5 feet 10, 196 pounds. HEENT: Normal. Lungs: Clear. Cardiac: Exam normal. Abdomen: Soft. Extremities: Normal. Impression: The patient is not having an acute coronary syndrome. An echocardiogram has been ordere d. She is on clear liquids, I believe she needs to go through surgery to help her go up gallbladder. She is a low risk patient. RASHAUN/FANI Voice ID: [id number] Report ID: [id number]
[2019-02-20] MEDS ORDERED: INFLUENZA VACCINE (for 3y+) 0.5 ML DOSE IMVAC ONE (08:00)
--- NOTE | 2019-02-20 08:17 | CON ---
Addendum: Mrs. Drew EKGs shows a run of SVT that was temporary, self-terminated. No medicines were given. 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 She does not have atrial fibrillation. RASHAUN/FANI Voice ID: [id number] Report ID: [id number]
[2019-02-20 08:43] LABS: CKMB Creatine Kinase MB < 1.0 ng/mL (0.3-3.6); Troponin I < 0.02 ng/mL (0.0-0.045)
[2019-02-20 09:35] LABS: Barbiturates NEGATIVE (NEGATIVE); Benzodiazepines NEGATIVE (NEGATIVE); Cocaine NEGATIVE (NEGATIVE); METHAMPHETAM NEGATIVE (NEGATIVE); Methadone NEGATIVE (NEGATIVE); Opiates POSITIVE (NEGATIVE); Phencyclidine NEGATIVE (NEGATIVE); THC Cannibis NEGATIVE (NEGATIVE)
[2019-02-20 15:13] LABS: CKMB Creatine Kinase MB < 1.0 ng/mL (0.3-3.6); Troponin I < 0.02 ng/mL (0.0-0.045)
--- NOTE | 2019-02-20 15:49 | ECHO ---
HEIGHT: 5 ft 10 in WEIGHT: 196 lb 11.2 oz DATE OF STUDY: 02/20/[address]: Julia Foster 2-DIMENSIONAL: YES M.MODE: YES DOPPLER: YES COLOR FLOW: YES TDS: PORTABLE: DEFINITY: BUBBLE STUDY: DIAGNOSIS: NEW ONSET ATRIAL FIBRILLATION CARDIAC HISTORY: CATHERIZATION: NO SURGERY: NO PROSTHETIC VALVE: NO PACEMAKER: NO MEASUREMENTS (cm) DIASTOLIC (NORMALS) SYSTOLIC (NORMALS) IVSd 1.0 (0.6-1.2) LA Diam 3.3 (1.9-4.0) LVEF 69% LVIDd 4.3 (3.5-5.7) LVIDs 2.7 (2.0-3.5) %FS 38% LVPWd 1.0 (0.6-1.2) Ao Diam 2.7 (2.0-3.7) 2 DIMENSIONAL ASSESSMENT: RIGHT ATRIUM: NORMAL LEFT ATRIUM: NORMAL RIGHT VENTRICLE: NORMAL LEFT VENTRICLE: NORMAL TRICUSPID VALVE: NORMAL MITRAL VALVE: MITRAL VALVE PROLAPSE PULMONIC VALVE: NORMAL AORTIC VALVE: NORMAL PERICARDIAL EFFUSION: NONE AORTIC ROOT: NORMAL LEFT VENTRICULAR WALL MOTION: NORMAL DOPPLER/COLOR FLOW: MILD TRICUSPID REGURGITATION. MILD PULMONARY HYPERTENSION. ESTIMATED RIGHT VENTRICULAR SYSTOLIC PRESSURE 42 mmHg. NO MITRAL REGURGITATION. COMMENTS: NORMAL LEFT VENTRICULAR EJECTION FRACTION. MITRAL VALVE PROLAPSE WITHOUT MITRAL REGURGITATION OR LEAFLET THICKENING. SUPRAVENTRICULAR TACHYCARDIA NOTED DURING THE STUDY. TECHNOLOGIST: NAIMA DE LEÓN
--- NOTE | 2019-02-20 16:17 | CON ---
Date of Consultation: 02/20/2019 Brief History Of Present Illness: Patient is a 53-year-old female with past medical histor y of hypothyroidism and left lower extremity knee arthritis status post total knee replacement approx imately 1-1/2 weeks ago, I believe it was February 09, who presents with 1-day history of epigastri c abdominal pain. She states that she ate [employer] and had significant described as "swirly" type abdominal pain in the epigastric area, which went in a circular pattern in that area, but did not stokes ve any focality other than that generalized area. There was no movement to the right upper quadrant or to her back. There was no nausea, vomiting associated. She has had a change in her bowel functio n since surgery. She has had decreased bowel movements and decreased bowel function with increasing constipation since surgery. She is on pain medication for this as well. She states that she was giv en some pain medication here and her pain is essentially resolved at this point. She during admissio n had a workup, which showed a concern for a supraventricular tachycardia and was placed on heparin i nitially. She was maintained on Xarelto by her orthopedist and her last dose was yesterday evening. Her heparin drip has been stopped at this point. Past Medical History: Significant for nephrectomy as she donated her kidney for kidney transplant, h ypothyroidism, arthritis. Past Surgical History: Nephrectomy and left knee surgery/replacement. Allergies: NO KNOWN DRUG ALLERGIES. Home Medications: Included Xarelto, B12, calcium, vitamin C, glucosamine, iron, levothyroxine, lorat adine, methocarbamol, venlafaxine, and tramadol. Review of Systems: A 10-point review of systems other than HPI, denies. Physical Examination: Vital Signs: At the time of examination, her vital signs were blood pressure 104/61, pulse of 55, re spiratory rate 18, temperature 97.5. General: She is awake, alert, oriented. Psychiatric: She is appropriately conversive. HEENT: She is normocephalic. Sclerae icteric. Mucous membranes are moist. Oropharynx clear. Neck: Supple. No JVD. Chest: Normal expansion and excursion. Cardiovascular: Regular rate and rhythm. Pulmonary: Clear to auscultation bilaterally. Abdomen: Soft, nontender, nondistended. No rebound. No guarding. No focal peritonitis. Negative Leal sign. Negative psoas sign. She has a completely benign abdominal exam. Extremities: She does have some swelling on the left knee and some slight warmth to this area. No d rainage and healing surgical scar is evident. Her skin is otherwise warm and dry. Laboratory Data: Reveals a white blood count of 9.6, hemoglobin of 8.9, hematocrit of 26.9, platelet count is 232. Her PT is 13.6, INR 1.16, PTT is 40.2. Sodium 143, potassium 3.7, chloride 109, carb on dioxide 28, BUN 18, creatinine 1.1, glucose is 112, magnesium 2.2, total bilirubin 0.2, AST is 136 , ALT 102, alkaline phosphatase is 202. CK-MB is less than 1. Troponin is less than 0.02 x2 checks. Her proBNP was 255, triglycerides 111. Her TSH was 4.3. She had a UA including urine te st, which was negative. She had imaging performed, which included an extremity venous study as well as abdominal ultrasound. The abdominal ultrasound was officially read as cholelithiasis. There are multiple shadowing gallstones, no pericholecystic fluid or gallbladder wall thickening. The common b ile duct is normal at 3 mm. No intrahepatic biliary ductal dilatation was noted. She had a chest x- ray performed as well which is officially read as no acute abnormalities displayed and she had an ext remity venous study, which officially read as no evidence of DVT involving either lower extremity. S he had a 3 cm heterogeneous structure posterior left knee, presumably hematoma. Recommend the patien t have followup ultrasound in 4 weeks for re-evaluation. This is the area of her surgery however. Assessment And Plan: This is a 53-year-old female, who comes in with possible early calculous cholec ystitis, although she does not have any active evidence of that at this time other than elevation of her transaminases. I am unsure if this is a cardiovascular-related problem or related to biliary tra ct disease. As such, I recommend HIDA scan. In addition, patient was on Xarelto as of yesterday and as such, I prefer 48 hours off Xarelto prior to consideration of any surgical intervention except fo r acute surgical emergencies and as such, I recommend waiting that length of time. Additionally, I w ould like Dr. Ayers' recommendations with respect to surgical risk and any need for any intervention s prior to a surgical intervention. However, I feel she is likely low risk for any cardiovascular is sues in surgery should it be necessary. I have explained the risks, benefits, and alternatives of th e above-stated plan. The patient agrees to proceed as indicated. MACARIO/FANI Voice ID: [id number] Report ID: [id number]
--- NOTE | 2019-02-20 17:50 | P.PN ---
Subjective Date of Service: 02/20/19 Chief Complaint: new afib w/ rvr, cholelithiasis, biliary colic Patient reporting headache. She denies abdominal pain at this time but endorsed nausea. Noted AST and ALT are trending up. Patient seen by cardiology. It is determined she is did not experience atrial fibrillation. Also noted a drop in her hemoglobin. Physical Examination - Vital Signs Temperature: 97.5 F Blood Pressure: 131/72 Pulse: 67 Respirations: 16 Pulse Ox (%): 98 - Physical Exam General: Alert, In no apparent distress, Oriented x3 HEENT: Mucous membr. moist/pink, Sclerae nonicteric Neck: Supple, JVD not distended Respiratory: Clear to auscultation bilaterally, Normal air movement Cardiovascular: No edema, Regular rate/rhythm, Normal S1 S2 Gastrointestinal: Normal bowel sounds, Soft and benign, Non-distended, No tenderness Musculoskeletal: No swelling Integumentary: No rashes Neurological: Normal speech, Normal strength at 5/5 x4 extr - Studies Laboratory Data (last 24 hrs) 02/19/19 19:34: PT 14.3 H, INR 1.22 02/19/19 19:34: WBC 11.6 H, Hgb 10.4 L, Hct 31.6 L, Plt Count 294 02/19/19 19:34: Sodium 142, Potassium 3.6, BUN 20 H, Creatinine 1.31 H, Glucose 80, Magnesium 2.3, Total Bilirubin 0.5, AST 124 H, ALT 56, Alkaline Phosphatase 226 H, Lipase 166 Assessment And Plan - Current Problems (Diagnosis) (1) Epigastric abdominal pain Current Visit: Yes Status: Acute (2) Elevated LFTs Current Visit: Yes Status: Acute (3) SVT (supraventricular tachycardia) Current Visit: Yes Status: Acute (4) Anemia Current Visit: Yes Status: Acute (5) Cholelithiasis Current Visit: Yes Status: Acute (6) Hypothyroidism Current Visit: Yes Status: Chronic - Plan Discontinue heparin drip Continue telemetry IV hydration Supportive measures with pain management and antiemetics as needed. General surgery consult appreciated. HIDA scan to be done tomorrow Continue to monitor blood chemistry and LFT Monitor hemoglobin and transfuse p.r.n. for hemoglobin less than 7. Patient denies any melena or hematochezia or hematemesis. Dr. Chand to follow.
[2019-02-21] MEDS: DOCUSATE NA 100 MG CAP PO PRN ×2 (01:27→20:05)
[2019-02-21] MEDS: ACETAMINOPHEN 500 MG TAB PO PRN ×2 (01:27→06:43)
[2019-02-21] MEDS: MORPHINE 4 MG/ML SYR IV PRN (01:27)
[2019-02-21] MEDS: NA CHLORIDE 0.9% 1,000 ML IV SCH ×3 (01:28→20:01)
[2019-02-21 04:38] LABS: Absolute Lymphocytes (CBC) 1.7 K/uL (0.7-4.9); Basophils % 0.4 % (0-1.3); Hematocrit 26.9 % (36.0-45.0); Lymphocytes % 19.9 % (15.3-44.8); MPV 9.9 fL (7.6-11.3); RBC Red Blood Cell Count 3.28 M/uL (3.86-4.86)
[2019-02-21 05:16] LABS: Albumin 2.5 g/dL (3.4-5.0); Bilirubin Total 0.3 mg/dL (0.2-1.0); Potassium 4.4 mmol/L (3.5-5.1); Protein, Total 5.6 g/dL (6.4-8.2)
[2019-02-21] MEDS: METOPROLOL TAR 25 MG TAB PO SCH ×2 (06:43→17:50)
[2019-02-21] MEDS ORDERED: SUMATRIPTAN SUCC 6MG/0.5ML VIAL SQ ONE (09:32)
--- NOTE | 2019-02-21 12:56 | P.PN ---
Subjective Date of Service: 02/21/19 Chief Complaint: new afib w/ rvr, cholelithiasis, biliary colic Patient complaining of severe headache. She feels this is migraine headache. The headache has not responded to IV morphine. She reports mild right upper quadrant pain. Liver enzymes have trended down significantly today. Hemoglobin is stable at 8.9. Physical Examination - Vital Signs Temperature: 97.7 F Blood Pressure: 135/79 Pulse: 65 Respirations: 18 Pulse Ox (%): 96 - Physical Exam General: Alert, In no apparent distress HEENT: Mucous membr. moist/pink Neck: Supple Respiratory: Clear to auscultation bilaterally, Normal air movement Cardiovascular: No edema, Regular rate/rhythm, Normal S1 S2 Gastrointestinal: Normal bowel sounds, Soft and benign, Non-distended, No tenderness Musculoskeletal: No swelling Integumentary: No rashes Neurological: Normal speech, Normal strength at 5/5 x4 extr Assessment And Plan - Current Problems (Diagnosis) (1) Epigastric abdominal pain Current Visit: Yes Status: Acute (2) Elevated LFTs Current Visit: Yes Status: Acute (3) SVT (supraventricular tachycardia) Current Visit: Yes Status: Acute (4) Anemia Current Visit: Yes Status: Acute (5) Cholelithiasis Current Visit: Yes Status: Acute (6) Hypothyroidism Current Visit: Yes Status: Chronic (7) Migraine Current Visit: Yes Status: Acute - Plan Continue telemetry IV hydration Supportive measures with pain management and antiemetics as needed. Imitrex for migraine General surgery consult appreciated. HIDA scan is pending to be followed. LFTs have trended down. Monitor hemoglobin and transfuse p.r.n. for hemoglobin less than 7. Dr. Chand to follow.
--- NOTE | 2019-02-21 14:06 | RAD REPORT ---
EXAM DESCRIPTION: NM - Hepatobiliary System W/ Ph - 02/21/2019 1:57 pm CLINICAL HISTORY: Abdominal pain TECHNIQUE: The patient was administered 6.1 millicuries technetium Choletec intravenous and images o f the abdomen obtained for 90 minutes. 2-1/2 hours later the Patient was given 1.7 micrograms Kinevac intravenously and images of the gallbladder obtained for 30 minutes FINDINGS: Liver demonstrates prompt radiotracer uptake. Prompt uptake is seen within within small bowel. No uptake is seen within the gallbladder by 90 minutes. Images obtained at 2-1/2 hours demonstrates g allbladder radiotracer uptake. After the administration of cck gallbladder ejection fraction equals 22% (normal values greater than 35% Patient was asymptomatic prior and during CCK IMPRESSION: No evidence of acute cholecystitis Gallbladder ejection fraction equals 22 % which may indicate biliary dyskinesis Delayed radiotracer activity within the gallbladder is a nonspecific finding but can be associated wi th chronic cholecystitis
[2019-02-21] MEDS: HYDROCODONE/APAP 5/325 MG TAB PO PRN (20:00)
[2019-02-21] MEDS: HYDROMORPHONE HCL 1 MG/ML INJ IV PRN (21:03)
[2019-02-21] MEDS: ONDANSETRON 4 MG/2 ML VIAL IV PRN (21:05)
[2019-02-22] MEDS: HYDROMORPHONE HCL 1 MG/ML INJ IV PRN ×2 (02:55→09:06)
[2019-02-22] MEDS: ONDANSETRON 4 MG/2 ML VIAL IV PRN ×2 (03:00→09:06)
[2019-02-22] MEDS: METOPROLOL TAR 25 MG TAB PO SCH (05:09)
[2019-02-22 06:14] LABS: Absolute Lymphocytes (CBC) 1.9 K/uL (0.7-4.9); Basophils % 0.3 % (0-1.3); Hematocrit 27.4 % (36.0-45.0); RBC Red Blood Cell Count 3.41 M/uL (3.86-4.86)
[2019-02-22 06:32] LABS: Albumin 2.6 g/dL (3.4-5.0); Bilirubin Total 0.3 mg/dL (0.2-1.0); Protein, Total 5.9 g/dL (6.4-8.2)
[2019-02-22 09:06] VITALS: BP 141/72; TEMP 98.2
--- NOTE | 2019-02-22 11:52 | P.DS ---
Admission Date: 02/19/19 Discharge Date: 02/22/19 Primary Care Provider: Dr. Otero Disposition: ROUTINE DISCHARGE Discharge Condition: GOOD Reason for Admission: Abdominal pain Consultations: Surgery-Dr. Chand Cardiology-Dr. Ayers Procedures: ABUS: FINDINGS: The gallbladder demonstrates multiple shadowing gallstones. No pericholecystic fluid or gallbladder wall thickening. The common bile duct is normal measuring 3 mm. The liver demonstrates no findings of intrahepatic biliary dilatation. IMPRESSION: Cholelithiasis. Venous doppler: FINDINGS: The common femoral, superficial femoral, popliteal and posterior tibial veins bilaterally are compressible and demonstrate augmentation. Doppler demonstrates good flow. 3 centimeter heterogeneous structure is present within the posterior left knee IMPRESSION: No evidence of deep venous thrombosis involving either lower extremity. 3 centimeter heterogeneous structure posterior left knee presumably a hematoma. It is recommended that the patient a followup ultrasound in 4 weeks for re- evaluation HIDA: FINDINGS: Liver demonstrates prompt radiotracer uptake. Prompt uptake is seen within within small bowel. No uptake is seen within the gallbladder by 90 minutes. Images obtained at 2-1/ 2 hours demonstrates gallbladder radiotracer uptake. After the administration of cck gallbladder ejection fraction equals 22% ( normal values greater than 35% Patient was asymptomatic prior and during CCK IMPRESSION: No evidence of acute cholecystitis Gallbladder ejection fraction equals 22 % which may indicate biliary dyskinesis Delayed radiotracer activity within the gallbladder is a nonspecific finding but can be associated with chronic cholecystitis ECHO: EF 69% LEFT VENTRICULAR WALL MOTION: NORMAL DOPPLER/COLOR FLOW: MILD TRICUSPID REGURGITATION. MILD PULMONARY HYPERTENSION. ESTIMATED RIGHT VENTRICULAR SYSTOLIC PRESSURE 42 mmHg. NO MITRAL REGURGITATION. COMMENTS: NORMAL LEFT VENTRICULAR EJECTION FRACTION. MITRAL VALVE PROLAPSE WITHOUT MITRAL REGURGITATION OR LEAFLET THICKENING. SUPRAVENTRICULAR TACHYCARDIA NOTED DURING THE STUDY. Medical Problem list: Epigastric abdominal pain secondary to cholelithiasis and biliary dyskinesia Supraventricular tachycardia Hypothyroidism History of migraines History of recent orthopedic surgery-left lower extremity knee replacement Anemia of chronic disease Brief History of Present Illness: 53-year-old female presented to the emergency room with epigastric abdominal pain. Abdominal ultrasound showed cholelithiasis without cholecystitis. There was some concern of abnormal EKG. Patient was admitted for further evaluation. Patient recently had a left lower extremity knee replacement due to arthritis. Patient has been on Xarelto. Hospital Course: Patient presented with epigastric pain. Patient found to have cholelithiasis without cholecystitis. Patient had some elevation in liver function. This improved. No hepatic or biliary dilation noted. Patient seen and evaluated by surgery. HIDA scan performed showed biliary dyskinesia. Due to her recent left lower extremity knee replacement surgery recommended outpatient cholecystectomy. At this time patient will be discharged home. Patient will continue with a bland diet. Patient will follow up with surgery in 1-2 weeks. Surgery will arrange for outpatient cholecystectomy after cleared by orthopedics and cardiology. Patient seen and evaluated by Cardiology due to suspected abnormal EKG. SVT noted. This has resolved. Patient was placed on metoprolol. No indication of atrial fibrillation. At discharge she will continue with metoprolol 12.5 mg 1 pill twice daily. She may hold medication if blood pressure less than 120 systolic or heart rate less than 50. At discharge patient may follow up with cardiology. Patient with hypothyroidism. At discharge she will continue with medication levothyroxine 75 mcg daily. Patient with recent lower extremity knee replacement. Patient has finished her Xarelto for DVT prophylaxis. Recommend follow up with orthopedics and physical therapy. Patient will continue her pain medication. Patient is ambulating. Continue with fall precaution. Patient with chronic anemia. Patient will continue with iron supplementation. Recommend recheck CBC in 1-2 weeks to monitor her progress. Vital Signs/Physical Exam: Temp Pulse Resp BP Pulse Ox 98.2 F 61 16 141/72 H 100 02/22/19 08:00 02/22/19 08:00 02/22/19 09:06 02/22/19 08:00 02/22/19 09:06 General: Alert, In no apparent distress, Oriented x3, Cooperative HEENT: Atraumatic Neck: Supple Respiratory: Clear to auscultation bilaterally, Normal air movement Cardiovascular: Normal pulses, Regular rate/rhythm Gastrointestinal: Normal bowel sounds, Soft and benign, Non-distended, No tenderness, No masses, No rebound, No guarding Musculoskeletal: No tenderness, No warmth Neurological: Normal speech, Normal strength at 5/5 x4 extr, Normal tone, Normal affect Laboratory Data at Discharge: WBC 8.9 K/uL (4.3-10.9) 02/22/19 05:41 Hgb 9.2 g/dL (12.0-15.0) L 02/22/19 05:41 Hct 27.4 % (36.0-45.0) L 02/22/19 05:41 Plt Count 248 K/uL (152-406) 02/22/19 05:41 PT 13.6 SECONDS (9.5-12.5) H 02/20/19 06:51 INR 1.16 02/20/19 06:51 APTT 38.6 SECONDS (24.3-36.9) H 02/20/19 14:24 Sodium 142 mmol/L (136-145) 02/22/19 05:41 Potassium 4.0 mmol/L (3.5-5.1) 02/22/19 05:41 BUN 9 mg/dL (7-18) 02/22/19 05:41 Creatinine 1.02 mg/dL (0.55-1.3) 02/22/19 05:41 Glucose 94 mg/dL (74-106) 02/22/19 05:41 Magnesium 2.2 mg/dL (1.8-2.4) 02/20/19 06:51 Total Bilirubin 0.3 mg/dL (0.2-1.0) 02/22/19 05:41 AST 32 U/L (15-37) 02/22/19 05:41 ALT 55 U/L (12-78) 02/22/19 05:41 Alkaline Phosphatase 150 U/L (45-117) H 02/22/19 05:41 Troponin I < 0.02 ng/mL (0.0-0.045) 02/20/19 14:24 Triglycerides 111 mg/dL (<150) 02/20/19 06:51 Cholesterol 149 mg/dL (<200) 02/20/19 06:51 HDL Cholesterol 52 mg/dL (40-60) 02/20/19 06:51 Cholesterol/HDL Ratio 2.87 02/20/19 06:51 Lipase 166 U/L (73-393) 02/19/19 19:34 Home Medications: Glucosamine Sulfate 2,000 mg PO DAILY 02/20/19 Iron 50 mg PO DAILY 02/20/19 Levothyroxine Sodium 75 mcg PO DAILY 02/20/19 Loratadine 1 tab PO DAILY 02/20/19 Methocarbamol 500 mg PO Q6HR PRN 02/20/19 Multivitamin [Multivitamins] 1 cap PO DAILY 02/20/19 Venlafaxine HCl [Venlafaxine HCl ER] 150 mg PO DAILY 02/20/19 traMADol HCL [Ultram*] 1 tab PO Q4HR 02/20/19 Metoprolol Tartrate [Lopressor*] 12.5 mg PO BID 6AM 6PM #60 tab 02/22/19 New Medications: Metoprolol Tartrate [Lopressor*] 12.5 mg PO BID 6AM 6PM #60 tab Patient Discharge Instructions: 1. Recommend follow up with her PCP in 1 week to follow up this hospitalization. 2. Patient presented with epigastric pain. Patient found to have cholelithiasis without cholecystitis. Patient had some elevation in liver function. This improved. No hepatic or biliary dilation noted. Patient seen and evaluated by surgery. HIDA scan performed showed biliary dyskinesia. Due to her recent left lower extremity knee replacement surgery recommended outpatient cholecystectomy. At this time patient will be discharged home. Patient will continue with a bland diet. Patient will follow up with surgery in 1-2 weeks. Surgery will arrange for outpatient cholecystectomy after cleared by orthopedics and cardiology. 3. Patient seen and evaluated by Cardiology due to suspected abnormal EKG. SVT noted. This has resolved. Patient was placed on metoprolol. No indication of atrial fibrillation. At discharge she will continue with metoprolol 12.5 mg 1 pill twice daily. She may hold medication if blood pressure less than 120 systolic or heart rate less than 50. At discharge patient may follow up with cardiology. 4. Patient with hypothyroidism. At discharge she will continue with medication levothyroxine 75 mcg daily. 5. Patient with recent lower extremity knee replacement. Patient has finished her Xarelto for DVT prophylaxis. Recommend follow up with orthopedics and physical therapy. Patient will continue her pain medication. Patient is ambulating. Continue with fall precaution. 6. Patient with chronic anemia. Patient will continue with iron supplementation. Recommend recheck CBC in 1-2 weeks to monitor her progress. Diet: [place] diet Activity: Fall precautions Time spent managing pt's care (in minutes): 55
[2019-02-22 12:27] VITALS: O2SAT 98
--- NOTE | 2019-02-22 12:28 | P.PN ---
Subjective Date of Service: 02/22/19 Primary Care Provider: Dr. Otero Chief Complaint: Abdominal pain Subjective: Improving (patient has no pain, no abdominal complaints) Physical Examination - Vital Signs Temperature: 98.2 F Blood Pressure: 141/72 Pulse: 61 Respirations: 16 Pulse Ox (%): 100 - Physical Exam General: Alert, In no apparent distress, Cooperative Gastrointestinal: Soft and benign, Non-distended, No ascites, No tenderness, No masses, No rebound, No guarding Assessment And Plan - Plan 53 year old woman who presents with biliary dyskinesia - ok for discharge for now - will follow up in clinic in 1 week to discuss surgical planning - diet discussed
[2019-02-22] MEDS ORDERED: INFLUENZA VACCINE (for 3y+) 0.5 ML DOSE IMVAC ONE (14:00)
--- NOTE | 2019-02-22 15:49 | PN ---
Ms. Ayers goes into a supraventricular rhythm that looks like it is most likely automatic atrial tac h, usually 4 to 10 beats, sometimes 20 or 25. Most of these are asymptomatic. She has probably been feeling these for many years, but it does not seem to be an atrial fib. At this point, I have no fu rther recommendations for treating arrhythmia. Thank you very much for your kind referral of Ms. Drew. I will follow her with you. RASHAUN/FANI Voice ID: [id number] Report ID: [id number]
== END 2019-02-22 14:29 | disposition home or self-care (01) | DRG 445 ==
LOC: ER 19:00 → ERHOLD 22:59 → 4TH 23:30
PROVIDERS: ADMIT Internal Medicine; ATTEND Internal Medicine
DX: K80.20 Calculus of gallbladder without cholecystitis without obstruction (principal); I47.1 Supraventricular tachycardia; K82.8 Other specified diseases of gallbladder; E03.9 Hypothyroidism, unspecified; Z96.652 Presence of left artificial knee joint; D64.9 Anemia, unspecified; Z23 Encounter for immunization
CPT/HCPCS: 36415; 71045; 76705; 78227; 80048; 80053; 80061; 80076; 80307; 81003; 81025; 82553; 83690; 83735; 83880; 84439; 84443; 84484; 85025; 85610; 85730; 90471; 93306; 93970; 96361; 96365; 96368; 96375; 99285; A9537; J1170; J2405; J2543; J2805; J3030; J7030; Q2035

== ENCOUNTER 2019-03-30 16:55 | Emergency (ER) | payer BC ==
--- OUTSIDE RECORDS SUMMARY | 2019-03-30 16:57 | XMS REPORT ---
:1965 Author Organization [facility] Address [address] [place] [address] Care Team Providers Name Role Phone Unavailable [...] 45.3 >60 Unit of measure: mL/min/1.73 code=GFR) [id number] Range:Healthy Adults >90 mL/min/1.73 m2 For Chronic Kidney Disease: Stage II Mild Decrease in GFR 60-90 Stage III Moderate Decrease in GFR 30-59 Stage IV Severe Decrease in GFR 15-29 Stage V Kidney Failure <15 CREATININE (test code=CREAT) 1.23 mg/dL 0.55-1.30 CALCIUM (test code=CA) 8.5 mg/dL 8.2-10.1 HGB [id number] 06:07:00 Test Item Value Reference Range Comments HEMOGLOBIN (test code=HGB) 11.6 g/dL 12-16 HEMATOCRIT (test code=HCT) 36.4 % 37-47 PROTHROMBIN [id number] 14:21:00 Test Item Value Reference Range Comments [...] intravascular valves IS PATIENT ON ANTICOAGULANTS ? [facility] been notified if Patient is on Heparin Drip? NOIf Yes, orderCBC, OCCULT BLOOD, PT every other day NTHROMBOPLASTIN TIME [id number] 14:21:00 Test Item Value Reference Range Comments PTT ACTIVATED (test 42.3 secs 24.9-37.0 VERIFIED BY REPEAT code=APTT) ANALYSIS.CRITICAL VALUE CALLED TO MYRA WITH ' OFFICEREAD BACK & CONFIRMED? TESSY HERNANDEZAEG 01/26/19 1420 IS PATIENT ON ANTICOAGULANTS ? [facility] been notified if Patient is on Heparin Drip? NOIf Yes, orderCBC, OCCULT BLOOD, PT every other day NCOMPREHENSIVE METABOLIC [id number] 13:08:00 Test Item Value Reference Range Comments SODIUM (test code=NA) 144 mmol/L 136-145 POTASSIUM (test code=K) 4.3 mmol/L 3.5-5.1 CHLORIDE (test code=CL) 107.0 mmol/L 98-107 CARBON DIOXIDE (test code=CO2) 33.8 mmol/L 21-32 GLUCOSE (test code=GLU) 79 mg/dL 70-110 BLOOD UREA NITROGEN (test 18 mg/dL 7-18 code=BUN) GLOMERULAR FILTRATION RATE 53.8 >60 Unit of measure: (test code=GFR) mL/min/1.73 [id number] Range:Healthy Adults >90 mL/min/1.73 m2 For Chronic [...] 103 U/L 46-116 (test code=ALKP) CBC W/AUTO [id number] 12:29:00 Test Item Value Reference Range Comments [...]
--- OUTSIDE RECORDS SUMMARY | 2019-03-30 16:57 | XMS REPORT ---
[...] Status Dosage System Date Date Venlafaxine HCl [facility] [id number] 75 MG Orally Active 1 capsule ER Once a day with food Levothyroxine [facility] [id number] 75 MCG Orally Active 1 tablet Sodium Once a day on an empty stomach in the morning Calcium ND 0 600-400 MG-UNIT Active 1 tablet Carbonate-Vit Orally Twice a with meals D-Min day Ferrous Sulfate ND 75576291988 325 (65 Fe) MG Active 1 tablet Orally Once a day [place]e ND 05322959586 0.45-20 MG Active 1 tablet Orally Once a day Vitamin B-12 ND 37573861124 100 MCG Orally Active not defined Amoxicillin-Pot ND 54018137078 875-125 MG Active 1 tablet Clavulanate Orally every 12 hrs Diflucan [facility] 13981844895 150 MG Orally Active 1 tablet Multivitamin [facility] 98750056271 - Orally Active not Adult defined Loratadine [facility] 86252214909 10 MG Orally Dec 17, Active 1 tablet Once a day 2018 Results No Known Results Summary Purpose eClinicalWorks Submission
--- OUTSIDE RECORDS SUMMARY | 2019-03-30 16:57 | XMS REPORT ---
[...] D-Min Twice a day Ferrous Sulfate ND 66802164064 325 (65 Fe) MG Active 1 tablet Orally Once a day Loratadine ND 43431367633 10 MG Orally Dec 17, Active 1 tablet Once a day 2018 Venlafaxine HCl ND 35382204253 75 MG Orally Active 1 capsule ER Once a day with food Duavee ND 77266707767 0.45-20 MG Active 1 tablet Orally Once a day Jublia ND 18775880954 10 % May 15August 13, Active 1 application Externally 2018 2018 to toenails Once a day of both feet Multivitamin [facility] 75274344316 - Orally Active not defined Adult Amoxicillin-Pot [facility] 27857459510 875-125 MG Active 1 tablet Clavulanate Orally every 12 hrs Diflucan [facility] 71421109543 150 MG Orally Active 1 tablet Ketoconazole [facility] 90687504411 2 % Externally May 15June Active 1 application Once a day 2018, to both feet 2018 Vitamin B-12 [facility] 56793447734 100 MCG Orally Active not defined Levothyroxine [facility] 50888932519 75 MCG Orally Active 1 tablet on Sodium Once a day an empty stomach in the morning Results No Known Results Summary Purpose eClinicalWorks Submission
--- OUTSIDE RECORDS SUMMARY | 2019-03-30 16:58 | XMS REPORT ---
:1965 Author [facility] Care Team Providers Name Role Phone Kathy [...] Status Dosage System Date Date Multivitamin ND 84642878212 - Orally Active not defined Adult Ferrous Sulfate ND 96284979560 325 (65 Fe) MG Active 1 tablet Orally Once a day Amoxicillin-Pot [facility] 15304917373 875-125 MG Active 1 tablet Clavulanate Orally every 12 hrs Venlafaxine HCl [facility] 98255202336 75 MG Orally Active 1 capsule ER Once a day with food Calcium NDC 0 600-400 MG-UNIT Active 1 tablet with Carbonate-Vit Orally Twice a meals D-Min day Levothyroxine [facility] 24149004257 75 MCG Orally Active 1 tablet on Sodium Once a day an empty stomach in the morning Duavee [facility] 36187047133 0.45-20 MG Active 1 tablet Orally Once a day Loratadine [facility] 81672375423 10 MG Orally Oct Active 1 tablet Once a day 2018 Diflucan [facility] 62346240398 150 MG Orally Active 1 tablet Mupirocin [facility] 76877915188 2 % Externally August Active 1 application Three times a 25, 05, to affected day x 10 days 2018 2018 area Vitamin B-12 [facility] 02355288912 100 MCG Orally Active not defined Results No Known Results Summary Purpose eClinicalWorks Submission
--- OUTSIDE RECORDS SUMMARY | 2019-03-30 16:58 | XMS REPORT ---
:1965 [facility] Team Providers Name Role [...] End Status Dosage System Date Date Levothyroxine [facility] 25953587490 75 MCG Orally Active 1 tablet on Sodium Once a day an empty stomach in the morning Venlafaxine HCl [facility] 80239992196 75 MG Orally Active 1 capsule ER Once a day with food Loratadine [facility] 16166708047 10 MG Orally Dec 17, Active 1 tablet Once a day 2018 Ketoconazole [facility] 46700130794 2 % Externally May 15June Active 1 application Once a day 2018, to both feet 2018 Jublia ND 42508640477 10 % May 15August 13, Active 1 application Externally 2018 2019 to toenails Once a day of both feet Calcium ND 0 600-400 Active 1 tablet with Carbonate-Vit MG-UNIT Orally meals D-Min Twice a day Multivitamin [facility] 00018067035 - Orally Active not defined Adult Diflucan [facility] 90350660416 150 MG Orally Active 1 tablet Amoxicillin-Pot [facility] 48272627753 875-125 MG Active 1 tablet Clavulanate Orally every 12 hrs Duavee [facility] 14009838854 0.45-20 MG Active 1 tablet Orally Once a day Vitamin B-12 [facility] 51819061893 100 MCG Orally Active not defined Ferrous Sulfate [facility] 03223239858 325 (65 Fe) MG Active 1 tablet Orally Once a day Results No Known Results Summary Purpose eClinicalWorks Submission
--- OUTSIDE RECORDS SUMMARY | 2019-03-30 16:58 | XMS REPORT ---
:1965 Author Organization eClinicalWorks Care Team Providers Name Role Phone Kathy Duran Provider Role Unavailable Allergies No Known Allergies Problems Problem Type Condition Code Onset Dates Condition Status Problem History of kidney removal Z90.5 Active [...] Pain in left knee M25.562 Active Medications No Known Medications Results No Known Results Summary Purpose eClinicalWorks Submission
--- OUTSIDE RECORDS SUMMARY | 2019-03-30 16:58 | XMS REPORT ---
:1965 [facility] Team Providers Name Role Phone Kathy Duran Provider Role Unavailable Allergies No Known Allergies Problems Problem Type Condition Code Onset Dates Condition Status Assessment Acute pharyngitis J02.9 Active Problem History of kidney removal Z90.5 Active Problem Fibrocystic breast N60.19 Active Problem Depression F32.9 Active Problem Fatigue, unspecified type R53.83 Active Problem Tinea pedis of both feet B35.3 Active Problem Hypothyroidism E03.9 Active Problem Decreased sex drive R68.82 Active Problem Bruising T14.8XXA Active Problem Acute coccygeal pain M53.3 Active Problem Atrial fibrillation, unspecified I48.91 Active type Problem Skin lesion L98.9 Active Problem Hypothyroidism, unspecified type E03.9 Active Problem Depression, unspecified depression F32.9 Active type Problem Gallstones K80.20 Active Problem Palpitations R00.2 Active Problem Syncope, unspecified syncope type R55 Active Problem Abnormal CBC R79.89 Active Problem Abnormal kidney function N28.9 Active Problem Leukocytosis, unspecified type D72.829 Active Problem Other chronic pain G89.29 Active Problem Pain in left knee M25.562 Active Problem Obesity (BMI 30-39.9) E66.9 Active Problem Obesity affecting in O99.212 Active second trimester Problem Pain in right hip M25.551 Active Problem Onychomycosis B35.1 Active Problem Pain in right knee M25.561 Active Problem Pain in left hip M25.552 Active Medications Medication Code Code Instructions Start End Status Dosage System Date Duave [facility] 83860937875 0.45-20 MG Active 1 tablet Orally Once a day Amoxicillin-Pot [facility] 12984741751 875-125 MG Active 1 tablet Clavulanate Orally every 12 hrs Vitamin B-12 [facility] 98042769657 100 MCG Orally Active not defined Diflucan [facility] 90947176714 150 MG Orally Active 1 tablet Ferrous Sulfate [facility] 08663225259 325 (65 Fe) MG Active 1 tablet Orally Once a day Calcium NDC 0 600-400 MG-UNIT Active 1 tablet Carbonate-Vit Orally Twice a with meals D-Min day Venlafaxine HCl ND 18859334717 75 MG Orally Active 1 capsule ER Once a day with food Levothyroxine [facility] 84663905067 75 MCG Orally Active 1 tablet Sodium Once a day on an empty stomach in the morning Multivitamin [facility] 98465863924 - Orally Active not Adult defined Loratadine [facility] 49652991334 10 MG Active TAKE ONE (1) TABLET(S) BY MOUTH ONCE A DAY. Results No Known Results Summary Purpose eClinicalWorks Submission
--- OUTSIDE RECORDS SUMMARY | 2019-03-30 16:58 | XMS REPORT ---
:1965 [facility] Care Team Providers Name Role Phone Kathy Duran Provider Role Unavailable Allergies, Adverse Reactions, Alerts Substance Reaction Event Type N.K.D.A. Info Not Available Non Drug Allergy Problems Problem Type Condition Code Onset Dates Condition Status Assessment Abnormal kidney function N28.9 Active Assessment Leukocytosis, unspecified type D72.829 Active Assessment Gallstones K80.20 Active Assessment Follow-up exam Z09 Active Assessment Atrial fibrillation, unspecified I48.91 Active type Assessment Hypothyroidism E03.9 Active Problem History of [...] Active Problem Leukocytosis, unspecified type D72.829 Active Assessment Obesity (BMI 30-39.9) E66.9 Active Problem Other chronic pain G89.29 Active Assessment Abnormal CBC R79.89 Active Problem Pain in left knee M25.562 Active Problem Obesity (BMI 30-39.9) E66.9 Active Assessment Depression, unspecified depression F32.9 Active type Problem Obesity affecting in O99.212 Active second trimester Problem Pain in right hip M25.551 Active Problem Onychomycosis B35.1 Active Problem Pain in right knee M25.561 Active Problem Pain in left hip M25.552 Active Medications Medication Code Code Instructions Start End Status Dosage System Date Date Loratadine [facility] 61401121757 10 MG Active TAKE ONE (1) TABLET(S) BY MOUTH ONCE A DAY. Calcium ND 0 600-400 MG-UNIT Active 1 tablet Carbonate-Vit Orally Twice a with meals D-Min day Venlafaxine HCl [facility] 70933302883 75 MG Orally Active 1 capsule ER Once a day with food Levothyroxine [facility] 82891067675 75 MCG Orally Active 1 tablet Sodium Once a day on an empty stomach in the morning Ferrous Sulfate [facility] 62980893131 325 (65 Fe) MG Active 1 tablet Orally Once a day Multivitamin [facility] 19654533891 - Orally Active not Adult defined Duavee [facility] 26356675056 0.45-20 MG Active 1 tablet Orally Once a day Amoxicillin-Pot [facility] 06916208615 875-125 MG Active 1 tablet Clavulanate Orally every 12 hrs Diflucan [facility] 06033599246 150 MG Orally Active 1 tablet Vitamin B-12 [facility] 26999344730 100 MCG Orally Active not defined Results No Known Results Summary Purpose eClinicalWorks Submission
--- OUTSIDE RECORDS SUMMARY | 2019-03-30 16:58 | XMS REPORT ---
:1965 [facility] Team Providers Name Role [...] End Status Dosage System Date Date Loratadine [facility] 34876933313 10 MG Orally Dec 17, Active 1 tablet Once a day [address] [facility] 80485565533 75 MCG Orally Active 1 tablet on Sodium Once a day an empty stomach in the morning Amoxicillin-Pot ND 92005771995 875-125 MG Active 1 tablet Clavulanate Orally every [address] [facility] 39475789931 500-125 MG October 13Oct 23, Active 1 tablet Orally every 2018 [address] [facility] 85856007705 150 MG Orally 1 October 13September Active as directed tablet now; 2018, then repeat 2019 after completing abx. Multivitamin [facility] 35256800253 - Orally Active not defined Adult Ferrous Sulfate [facility] 58241975758 325 (65 Fe) MG Active 1 tablet Orally Once a day Duavee [facility] 34049181901 0.45-20 MG Active 1 tablet Orally Once a day Venlafaxine HCl [facility] 10403095671 75 MG Orally Active 1 capsule ER Once a day with food Diflucan [facility] 52895095442 150 MG Orally Active 1 tablet Vitamin B-[address] [facility] 27760667429 100 MCG Orally Active not defined Calcium NDC 0 600-400 MG-UNIT Active 1 tablet Carbonate-Vit Orally Twice a with meals D-Min day Results Name Result Date Reference Range Unit Abnormality Flag STREP A RAPID ----Result Negative [id number] Summary Purpose eClinicalWorks Submission
--- NOTE | 2019-03-30 17:30 | ER ---
Nurse's Notes [facility] Name: Princess Drew Age: 53 yrs Sex: Female : 1965 Arrival Date: 03/30/2019 Time: 17:03 Bed Waiting Private MD: Kathy Duran Diagnosis: Assessment: 03/30 17:18 Reassessment: patient left prior to triage. accdg to the cashier receptionist she wants us to page mg2 dr arguello right away. her pain subsided anyway as reported. she left. ED Course: 17:03 Patient arrived in ED. mr 17:03 Kathy Duran MD is Private Physician. mr Administered Medications: No medications were administered Outcome: 17:28 Eloped from waiting room, prior to triage mg2 17:29 Patient left the ED. mg2 Signatures: Mai Vu Michele, RN RN mg2 Corrections: (The following items were deleted from the chart) 17:28 17:18 Reassessment: patient left prior to triage. mg2 mg2
== END 2019-03-30 17:29 | disposition left against medical advice (07) ==
LOC: ER 16:55
DX: Z02.9 Encounter for administrative examinations, unspecified (principal)

== ENCOUNTER 2019-04-03 07:42 | Day surgery (SDC) | payer BC ==
--- OUTSIDE RECORDS SUMMARY | 2019-04-03 07:45 | XMS REPORT ---
:1965 [facility] [address] [place] [address] Care Team Providers Name Role Phone Unavailable Unavailable Unavailable Payers Payer Name Policy Type Policy Number Effective Date Expiration Date Problems This patient has no known problems. Allergies, Adverse Reactions, Alerts Allergy Allergy Status Severity Reaction(s) Onset Inactive Treating Comments Name Type Date Date Clinician No Known DA Active U 2019-01 Allergies 00:00:0 0 Medications This patient has no [...] 45.3 >60 Unit of measure: mL/min/1.73 code=GFR) [id number] Range:Healthy Adults >90 mL/min/1.73 m2 For Chronic Kidney Disease: Stage II Mild Decrease in GFR 60-90 Stage III Moderate Decrease in GFR 30-59 Stage IV Severe Decrease in GFR 15-29 Stage V Kidney Failure <15 CREATININE (test code=CREAT) 1.23 mg/dL 0.55-1.30 CALCIUM (test code=CA) 8.5 mg/dL 8.2-10.1 HGB [id number] 06:07:00 Test Item Value Reference Range Comments HEMOGLOBIN (test code=HGB) 11.6 g/dL 12-16 HEMATOCRIT (test code=HCT) 36.4 % 37-47 PROTHROMBIN [id number] 14:21:00 Test Item Value Reference Range Comments [...] BLOOD, PT every other day NTHROMBOPLASTIN TIME [id number] 14:21:00 Test Item Value Reference Range Comments PTT ACTIVATED (test 42.3 secs 24.9-37.0 VERIFIED BY REPEAT code=APTT) ANALYSIS.CRITICAL VALUE CALLED TO [facility] WITH ' OFFICEREAD BACK & CONFIRMED? TESSY NINA.AEG 01/26/19 1420 IS PATIENT ON ANTICOAGULANTS ? [facility] been notified if Patient is on Heparin Drip? NOIf Yes, orderCBC, OCCULT BLOOD, PT every other day NCOMPREHENSIVE METABOLIC [id number] 13:08:00 Test Item Value Reference Range Comments SODIUM (test code=NA) 144 mmol/L 136-145 POTASSIUM (test code=K) 4.3 mmol/L 3.5-5.1 CHLORIDE (test code=CL) 107.0 mmol/L 98-107 CARBON DIOXIDE (test code=CO2) 33.8 mmol/L 21-32 GLUCOSE (test code=GLU) 79 mg/dL 70-110 BLOOD UREA NITROGEN (test 18 mg/dL 7-18 code=BUN) GLOMERULAR FILTRATION RATE 53.8 >60 Unit of measure: (test code=GFR) mL/min/1.73 [id number] Range:Healthy Adults >90 mL/min/1.73 m2 For Chronic [...] 103 U/L 46-116 (test code=ALKP) CBC W/AUTO [id number] 12:29:00 Test Item Value Reference Range Comments [...]
--- OUTSIDE RECORDS SUMMARY | 2019-04-03 07:45 | XMS REPORT ---
[...] Status Dosage System Date Date Venlafaxine HCl [facility] 99223163611 75 MG Orally Active 1 capsule ER Once a day with food Levothyroxine [facility] 19059308699 75 MCG Orally Active 1 tablet Sodium Once a day on an empty stomach in the morning Calcium ND 0 600-400 MG-UNIT Active 1 tablet Carbonate-Vit Orally Twice a with meals D-Min day Ferrous Sulfate ND 17373668879 325 (65 Fe) MG Active 1 tablet Orally Once a day Duavee ND 89097611995 0.45-20 MG Active 1 tablet Orally Once a day Vitamin B-12 ND 13091999697 100 MCG Orally Active not defined Amoxicillin-Pot ND 31976635525 875-125 MG Active 1 tablet Clavulanate Orally every 12 hrs Diflucan [facility] 55602239611 150 MG Orally Active 1 tablet Multivitamin [facility] 55662770062 - Orally Active not Adult defined Loratadine [facility] 58228716206 10 MG Orally Dec 17, Active 1 tablet Once a day 2018 Results No Known Results Summary Purpose eClinicalWorks Submission
--- OUTSIDE RECORDS SUMMARY | 2019-04-03 07:45 | XMS REPORT ---
[...] D-Min Twice a day Ferrous Sulfate ND 10856345642 325 (65 Fe) MG Active 1 tablet Orally Once a day Loratadine ND 65316173775 10 MG Orally Dec 17, Active 1 tablet Once a day 2018 Venlafaxine HCl ND 05779579368 75 MG Orally Active 1 capsule ER Once a day with food Duavee ND 64958132604 0.45-20 MG Active 1 tablet Orally Once a day Jublia ND 55434915639 10 % May 15August 13, Active 1 application Externally 2018 2018 to toenails Once a day of both feet Multivitamin [facility] 27221637134 - Orally Active not defined Adult Amoxicillin-Pot [facility] 25777198776 875-125 MG Active 1 tablet Clavulanate Orally every 12 hrs Diflucan [facility] 18258124639 150 MG Orally Active 1 tablet Ketoconazole [facility] 56689792805 2 % Externally May 15June Active 1 application Once a day 2018, to both feet 2018 Vitamin B-12 [facility] 16015961501 100 MCG Orally Active not defined Levothyroxine [facility] 86411850930 75 MCG Orally Active 1 tablet on Sodium Once a day an empty stomach in the morning Results No Known Results Summary Purpose eClinicalWorks Submission
--- OUTSIDE RECORDS SUMMARY | 2019-04-03 07:46 | XMS REPORT ---
:1965 [facility] Team Providers Name Role Phone [...] Status Dosage System Date Date Multivitamin ND 44437833777 - Orally Active not defined Adult Ferrous Sulfate ND 72533242211 325 (65 Fe) MG Active 1 tablet Orally Once a day Amoxicillin-Pot [facility] 24006411357 875-125 MG Active 1 tablet Clavulanate Orally every 12 hrs Venlafaxine HCl [facility] 52609857155 75 MG Orally Active 1 capsule ER Once a day with food Calcium NDC 0 600-400 MG-UNIT Active 1 tablet with Carbonate-Vit Orally Twice a meals D-Min day Levothyroxine [facility] 80289022325 75 MCG Orally Active 1 tablet on Sodium Once a day an empty stomach in the morning Duavee [facility] 44795893878 0.45-20 MG Active 1 tablet Orally Once a day Loratadine [facility] 81971239158 10 MG Orally Oct Active 1 tablet Once a day 2018 Diflucan [facility] 09711437296 150 MG Orally Active 1 tablet Mupirocin [facility] 08544475363 2 % Externally August Active 1 application Three times a 25, 05, to affected day x 10 days 2018 2018 area Vitamin B-12 [facility] 05872377243 100 MCG Orally Active not defined Results No Known Results Summary Purpose eClinicalWorks Submission
--- OUTSIDE RECORDS SUMMARY | 2019-04-03 07:46 | XMS REPORT ---
:1965 [facility] Care Team Providers Name Role [...] Dosage System Date Date Loratadine [facility] 84506447049 10 MG Orally Dec 17, Active 1 tablet Once a day 2018 Levothyroxine [facility] 25611217033 75 MCG Orally Active 1 tablet on Sodium Once a day an empty stomach in the morning Amoxicillin-Pot ND 75210525899 875-125 MG Active 1 tablet Clavulanate Orally every 12 hrs Augmentin [facility] 77140385942 500-125 MG October 13Oct 23, Active 1 tablet Orally every 2018 2019 hrs Diflucan [facility] 58730061942 150 MG Orally 1 October 13September Active as directed tablet now; 2018, then repeat 2019 after completing abx. Multivitamin [facility] 39258928973 - Orally Active not defined Adult Ferrous Sulfate [facility] 79287781420 325 (65 Fe) MG Active 1 tablet Orally Once a day Duavee [facility] 30561499382 0.45-20 MG Active 1 tablet Orally Once a day Venlafaxine HCl [facility] 51183568869 75 MG Orally Active 1 capsule ER Once a day with food Diflucan [facility] 88206092433 150 MG Orally Active 1 tablet Vitamin B-12 [facility] 05879488054 100 MCG Orally Active not defined Calcium NDC 0 600-400 MG-UNIT Active 1 tablet Carbonate-Vit Orally Twice a with meals D-Min day Results Name Result Date Reference Range Unit Abnormality Flag STREP A RAPID ----Result Negative [id number] Summary Purpose eClinicalWorks Submission
--- OUTSIDE RECORDS SUMMARY | 2019-04-03 07:46 | XMS REPORT ---
:1965 [facility] Care Team Providers Name Role Phone Kathy [...] End Status Dosage System Date Date Levothyroxine [facility] 99370383473 75 MCG Orally Active 1 tablet on Sodium Once a day an empty stomach in the morning Venlafaxine HCl [facility] 56829594856 75 MG Orally Active 1 capsule ER Once a day with food Loratadine [facility] 50102420012 10 MG Orally Dec 17, Active 1 tablet Once a day [address] [facility] 98841486591 2 % Externally May 15June Active 1 application Once a day 2018, to both feet 2018 Jublia ND 68521393657 10 % May 15August 13, Active 1 application Externally 2018 2019 to toenails Once a day of both feet Calcium ND 0 600-400 Active 1 tablet with Carbonate-Vit MG-UNIT Orally meals D-Min Twice a day Multivitamin [facility] 63611250154 - Orally Active not defined Adult Diflucan [facility] 24084087397 150 MG Orally Active 1 tablet Amoxicillin-Pot [facility] 57199064609 875-125 MG Active 1 tablet Clavulanate Orally every 12 hrs Duavee [facility] 63671520027 0.45-20 MG Active 1 tablet Orally Once a day Vitamin B-[address] [facility] 43657028224 100 MCG Orally Active not defined Ferrous Sulfate [facility] 42356975076 325 (65 Fe) MG Active 1 tablet Orally Once a day Results No Known Results Summary Purpose eClinicalWorks Submission
--- OUTSIDE RECORDS SUMMARY | 2019-04-03 07:47 | XMS REPORT ---
:1965 [facility] Team Providers Name Role Phone [...] End Status Dosage System Date Date Loratadine [facility] 44528040305 10 MG Active TAKE ONE (1) TABLET(S) BY MOUTH ONCE A DAY. Calcium ND 0 600-400 MG-UNIT Active 1 tablet Carbonate-Vit Orally Twice a with meals D-Min day Venlafaxine HCl [facility] 58701814058 75 MG Orally Active 1 capsule ER Once a day with food Levothyroxine [facility] 45969280981 75 MCG Orally Active 1 tablet Sodium Once a day on an empty stomach in the morning Ferrous Sulfate [facility] 74230661161 325 (65 Fe) MG Active 1 tablet Orally Once a day Multivitamin [facility] 75742232926 - Orally Active not Adult defined Duavee [facility] 28222768111 0.45-20 MG Active 1 tablet Orally Once a day Amoxicillin-Pot [facility] 55492867102 875-125 MG Active 1 tablet Clavulanate Orally every 12 hrs Diflucan [facility] 63829953356 150 MG Orally Active 1 tablet Vitamin B-12 [facility] 10890718728 100 MCG Orally Active not defined Results No Known Results Summary Purpose eClinicalWorks Submission
--- OUTSIDE RECORDS SUMMARY | 2019-04-03 07:47 | XMS REPORT ---
:1965 [facility] Team Providers Name Role Phone [...] Start End Status Dosage System Date Duave [facility] [id number] 0.45-20 MG Active 1 tablet Orally Once a day Amoxicillin-Pot [facility] 60901545494 875-125 MG Active 1 tablet Clavulanate Orally every 12 hrs Vitamin B-12 [facility] 32129081415 100 MCG Orally Active not defined Diflucan [facility] 77581171247 150 MG Orally Active 1 tablet Ferrous Sulfate [facility] 80567001428 325 (65 Fe) MG Active 1 tablet Orally Once a day Calcium NDC 0 600-400 MG-UNIT Active 1 tablet Carbonate-Vit Orally Twice a with meals D-Min day Venlafaxine HCl ND 80400007350 75 MG Orally Active 1 capsule ER Once a day with food Levothyroxine [facility] 26366380252 75 MCG Orally Active 1 tablet Sodium Once a day on an empty stomach in the morning Multivitamin [facility] 86956890293 - Orally Active not Adult defined Loratadine [facility] 74535322708 10 MG Active TAKE ONE (1) TABLET(S) BY MOUTH ONCE A DAY. Results No Known Results Summary Purpose eClinicalWorks Submission
[2019-04-03] MEDS ORDERED: Ringers Lactate 1,000 ML IV ONE (07:52)
[2019-04-03] MEDS ORDERED: propofoL 200 MG/20 ML VIAL IV ONE ×2 (09:06→09:19)
[2019-04-03] MEDS ORDERED: LIDOCAINE 1% MPF 5 ML VIAL ONE (09:07)
--- NOTE | 2019-04-03 09:28 | ENDO RPT ---
[address], [address] EGD PROCEDURE REPORT EXAM DATE: 04/03/2019 PATIENT NAME: Princess Drew MR#: [id number] BIRTHDATE: 1965 ATTENDING: Guillermo Chand DR STATUS: outpatient COOK CAMP: Era Santiago RN and Nestor Madrigal INDICATIONS: The patient is a 53 yr old Female here for an EGD due to dyspepsia and epigastric pain PROCEDURE PERFORMED: EGD with biopsy for H. pylori MEDICATIONS: Per Anesthesia. TOPICAL ANESTHETIC: none CONSENT: The patient understands the risks and benefits of the procedure and understands that these risks include, but are not limited to: sedation, allergic reaction, infection, perforation and/or bleeding. Alternative means of evaluation and treatment include, among others: physical exam, x-rays, and/or surgical intervention. The patient elects to proceed with this endoscopic procedure. DESCRIPTION OF PROCEDURE: During intra-op preparation period all mechanical medical equipment was checked for proper function. Hand hygiene and appropriate measures for infection prevention was taken. Procedure, possible complications, and alternatives including but not limited to the possibility of bleeding, perforation, tear, infection, sepsis, need for surgery, need for blood transfusion, and anesthesia related complications were explained to the patient. After the risks, benefits and alternatives of the procedure were thoroughly explained, Informed consent was verified, confirmed and timeout was successfully executed by the treatment team. The patient was placed in the left lateral position. The patient was anesthetized with topical anesthesia. Through the anesthetized oropharyngeal area, the scope was passed without any difficulty. The [id number] ([id number]) endoscope was introduced through the mouth and advanced to the second portion of the duodenum. Retroflexed views revealed a small hiatal hernia. The gastroscope was then slowly withdrawn and removed. A healed ulcer was noted at the pylorus. Heater probe therapy was performed. good hemostasis With standard forceps, a biopsy was obtained and sent to pathology. An erosion was found in the total stomach. Multiple biopsies were obtained and sent to pathology. Duodenitis was found in the bulb and descending duodenum. Multiple biopsies were obtained and sent to pathology. Mild gastritis was found in the body and the antrum of the stomach. With standard forceps, a biopsy was obtained and sent to pathology. Biopsies of the antrum were obtained and sent to pathology. A small hiatal hernia was found in the gastroesophageal junction. A biopsy for H. pylori was taken. ADVERSE EVENTS: There were no complications. IMPRESSIONS: 1. A healed ulcer was noted at the pylorus 2. An erosion was found in the total stomach 3. Duodenitis was found in the bulb and descending duodenum 4. Mild gastritis was found in the body and the antrum of the stomach 5. A small hiatal hernia was found in the gastroesophageal junction RECOMMENDATIONS: 1. acid suppression therapy 2. anti-reflux regimen 3. await biopsy results 4. follow-up: office 2 week(s) 5. avoid NSAIDS 6. Prilosec 20 mg po bid 7. Carafate 1 gm po bid ac 8. follow-up of helicobacter pylori status, treat if indicated REPEAT EXAM: Guillermo Chand DR eSigned: Guillermo Chand DR 04/03/2019 9:28 AM cc: CPT CODES: ICD9 CODES: PATIENT NAME: Princess Drew MR#: [id number]
[2019-04-03 10:02] VITALS: TEMP 97.8
[2019-04-03 10:14] VITALS: BP 143/84; O2SAT 100
== END 2019-04-03 10:18 | disposition home or self-care (01) ==
LOC: OR 07:42
PROVIDERS: ATTEND Surgery
PROC: 0DB78ZX Excision of Stomach, Pylorus, Via Natural or Artificial Opening Endoscopic, Diagnostic (ICD-10-PCS; 2019-04-03)
PROC: 0DB68ZX Excision of Stomach, Via Natural or Artificial Opening Endoscopic, Diagnostic (ICD-10-PCS; 2019-04-03)
PROC: 0DB48ZX Excision of Esophagogastric Junction, Via Natural or Artificial Opening Endoscopic, Diagnostic (ICD-10-PCS; 2019-04-03)
PROC: 0W3P8ZZ Control Bleeding in Gastrointestinal Tract, Via Natural or Artificial Opening Endoscopic (ICD-10-PCS; 2019-04-03)
PROC: 0DB98ZX Excision of Duodenum, Via Natural or Artificial Opening Endoscopic, Diagnostic (ICD-10-PCS; principal; 2019-04-03 09:15)
DX: K25.9 Gastric ulcer, unspecified as acute or chronic, without hemorrhage or perforation (principal); K29.50 Unspecified chronic gastritis without bleeding; K29.80 Duodenitis without bleeding; K44.9 Diaphragmatic hernia without obstruction or gangrene; I10 Essential (primary) hypertension
CPT/HCPCS: 43239; 43255; 88312; 88305; J2704 ×2; J7120

== ENCOUNTER 2020-04-19 14:40 | Emergency (ER) | payer BC ==
--- OUTSIDE RECORDS SUMMARY | 2020-04-19 14:42 | XMS REPORT | Continuity of Care Document ---
:1965 Author Organization [facility] t Address [address] [place] [address] Care Team Providers Name Role Phone Unavailable Unavailable Unavailable Payers Payer Name Policy Type Policy Number Effective Date Expiration Date S ource Problems This patient has no known problems. Allergies, Adverse Reactions, Alerts Allergy Allergy Status Severity Reaction(s) Onset Inactive Treating Comm ents Source Name Type Date Date Clinician No Known DA Active U 2018-03 [facility] Allergie 03-28 Clear s 00:00: Workman 00 [facility] Medications This patient has no known medications. Procedures This patient has no known procedures. Results Test Description Test Time Test Comments Results Result Comments Source BASIC METABOLIC PANEL 2019-02-10 06:30:00 Test Item Value Reference Range Interpretation Comme nts SODIUM (test code = NA) 140 mmol/L 136-145 N POTASSIUM (test code = K) 4.5 mmol/L 3.5-5.1 N CHLORIDE (test code = CL) 104.0 mmol/L 98-107 N CARBON DIOXIDE (test code = 26.1 mmol/L 21-32 N CO2) GLUCOSE (test code = GLU) 102 mg/dL 70-110 N BLOOD UREA NITROGEN (test code 15 mg/dL 7-18 N = BUN) GLOMERULAR FILTRATION RATE 45.3 >60 U nit of measure: (test code = GFR) mL/min/1.7 3 [id number] Range:Healthy A dults >90 mL/min/1.73 m2 For Chronic Kidney Disease: Stage II Mi ld Decrease in GFR 60-9 0 Stage III Moderate Decrease in GFR 30-59 Stage IV Severe Decrease in GFR 15-29 Stage V Kidney Failure <15 CREATININE (test code = CREAT) 1.23 mg/dL 0.55-1.30 N CALCIUM (test code = CA) 8.5 mg/dL 8.2-10.1 N HGB [id number] 06:07:00 Test Item Value Reference Range Interpretation Comments HEMOGLOBIN (test code = HGB) 11.6 g/dL 12-16 L HEMATOCRIT (test code = HCT) 36.4 % 37-47 L PROTHROMBIN [id number] 14:21:00 Test Item Value Reference Range Interpretation Comments PROTHROMBIN TIME 11.7 secs 10.1-12.5 N PATIENT (test code = PTP) INTERNATIONAL NORMAL 1.05 <2.0 RECOMME NDED THERAPEUTIC RATIO (test code = RANGE FOR ORAL INR) ANTICOAGULANTTR EATMENT: CONDI TION INRProphylaxis of venous thrombos is in 2.0 - 3.0 high-risk medic al or surgical patientsTreatme nt of venous thrombos is 2.0 - 3.0Prevention o f embolism 2.0 - 3.0Prevention o f recurrent embol ism, or 3.0 - 4. 5 patients with mechanical pros thetic intravascular v butler IS PATIENT ON ANTICOAGULANTS ? [facility] been notified if Patient is on Heparin Drip? NOIf Yes, orderCBC, OCCULT BLOOD, PT every other day NTHROMBOPLASTIN TIME [id number] 14:21:00 Test Item Value Reference Range Interpretation Comments PTT ACTIVATED (test 42.3 secs 24.9-37.0 HH VERIFIED BY REPEAT code = APTT) ANALYSIS.CRITIC AL VALUE CALLED TO [facility] WITH ' OFFICEREAD BACK & CONFIRMED? YESB Y F.LAB.AEG 01/26 1420 IS PATIENT ON ANTICOAGULANTS ? [facility] been notified if Patient is on Heparin Drip? NOIf Yes, orderCBC, OCCULT BLOOD, PT every other day NCOMPREHENSIVE METABOLIC [id number] 13:08:00 Test Item Value Reference Range Interpretation Comments SODIUM (test code = 144 mmol/L 136-145 N NA) POTASSIUM (test code = 4.3 mmol/L 3.5-5.1 N K) CHLORIDE (test code = 107.0 mmol/L 98-107 N CL) CARBON DIOXIDE (test 33.8 mmol/L 21-32 H code = CO2) GLUCOSE (test code = 79 mg/dL 70-110 N GLU) BLOOD UREA NITROGEN 18 mg/dL 7-18 N (test code = BUN) GLOMERULAR FILTRATION 53.8 >60 Unit o f measure: RATE (test code = GFR) mL/mi n/1.73 [id number] Range:Healthy Adults >90 mL/min/1.73 m2 For Chronic Kidney Disease: St age II Mild Decrease in GFR 60-90 St age III Moderate Decrease in GFR 30-59 Stage IV Severe Decre ase in GFR 15- 29 Stage V Kidney Failure <15 CREATININE (test code 1.06 mg/dL 0.55-1.30 N = CREAT) TOTAL PROTEIN (test 7.0 g/dL 6.4-8.2 N code = PROT) ALBUMIN (test code = 3.6 g/dL 3.4-5.0 N ALB) GLOBULIN (test code = 3.4 g/dL 2.2-4.2 N GLOB) ALBUMIN/GLOBULIN RATIO 1.1 0.7-2.0 N (test code = A/G) CALCIUM (test code = 9.3 mg/dL 8.2-10.1 N CA) BILIRUBIN TOTAL (test 0.27 mg/dL 0.2-1.00 N code = BILT) SGOT/AST (test code = 20.0 U/L 15-37 N AST) SGPT/ALT (test code = 28.0 U/L 12-78 N Please note new ALT) normal range. ALKALINE PHOSPHATASE 103 U/L 46-116 N TOTAL (test code = ALKP) CBC W/AUTO [id number] 12:29:00 Test Item Value Reference Range Interpretation Comments WHITE BLOOD CELL (test code = WBC) 7.9 K/mm3 5.8-11.0 N RED BLOOD CELL (test code = RBC) 4.88 M/mm3 4.2-5.4 N HEMOGLOBIN (test code = HGB) 12.8 g/dL 12-16 N HEMATOCRIT (test code = HCT) 40.4 % 37-47 N MEAN CELL VOLUME (test code = MCV) 83 fL 80-98 N MEAN CELL HGB (test code = MCH) 26.2 pg 27-34 L MEAN CELL HGB CONCENTRATION (test 31.7 g/dL 30.8-34.1 N code = MCHC) RED CELL DISTRIBUTION WIDTH (test 14.1 % 11-16 N code = RDW) PLT (test code = PLT) 176 K/mm3 130-400 N MEAN PLATELET VOLUME (test code = 13.7 fL 8.9-12.1 H MPV) NEUTROPHIL % (test code = NT%) 68.2 % 45-70 N LYMPHOCYTE % (test code = LY%) 20.9 % 20-40 N MONOCYTE % (test code = MO%) 7.8 % 3-10 N EOSINOPHIL % (test code = EO%) 2.3 % 1-5 N BASOPHIL % (test code = BA%) 0.5 % 0.0-1.1 N NEUTROPHIL # (test code = NT#) 5.40 K/mm3 2.00-7.50 N LYMPHOCYTE # (test code = LY#) 1.65 K/mm3 1.50-4.00 N MONOCYTE # (test code = MO#) 0.62 K/mm3 0.2-0.8 N EOSINOPHIL # (test code = EO#) 0.18 K/mm3 0.04-0.4 N BASOPHIL # (test code = BA#) 0.04 K/mm3 0.02-0.10 N MANUAL DIFF REQUIRED (test code = NO MANUAL DIFF MDIFF) NUCLEATED RED BLOOD CELL (test 0 % 0-0 N code = NRBC)
[2020-04-19 18:14] LABS: SARS-COV-2 RT PCR POSITIVE (NEGATIVE)
--- NOTE | 2020-04-19 18:16 | ER ---
Nurse's Notes [facility] Name: Princess Deras Age: 54 yrs Sex: Female : 1965 Arrival Date: 04/19/2020 Time: 14:43 Bed Waiting Private MD: Diagnosis: Coronavirus infection, unspecified Presentation: 04/19 16:29 Chief complaint: Patient states: cough, congestion headache, tested positive iw for COVID yesterday. Coronavirus screen: congestion, cough unrelated to allergies. Ebola Screen: Patient negative for fever greater than or equal to 101.5 degrees Fahrenheit, and additional compatible Ebola Virus Disease symptoms Patient denies exposure to infectious person. Patient denies travel to an Ebola-affected area in the 21 days before illness onset. No symptoms or risks identified at this time. Initial Sepsis Screen: Does the patient meet any 2 criteria? No. Patient's initial sepsis screen is negative. Does the patient have a suspected source of infection? No. Patient's initial sepsis screen is negative. Risk Assessment: Do you want to hurt yourself or someone else? Patient reports no desire to harm self or others. Onset of symptoms was April 18, 2020. 16:29 Method Of Arrival: Ambulatory iw 16:29 Acuity: PIYUSH 3 iw Historical: - Allergies: 16:32 No Known Allergies; iw - Home Meds: 16:32 venlafaxine oral oral once daily [Active]; levothyroxine oral [Active]; iw - PMHx: 16:32 None; iw - PSHx: 16:32 nephrectomy; iw Vital Signs: 16:29 Pulse 73; Resp 18 S; Temp 99.3; Pulse Ox 100% on R/A; Weight 108.86 kg; Height 5 ft. 10 iw in. (177.80 cm); 16:32 BP 171 / 94; iw 16:29 Body Mass Index 34.44 (108.86 kg, 177.80 cm) iw ED Course: 14:43 Patient arrived in ED. mr 16:31 Triage completed. iw 16:33 [facility]ela Maldonado FNP-C [facility]. kb 16:34 Mani Crabtree MD is Attending Physician. kb 18:22 Marissa Granger, DANA is Primary Nurse. iw Administered Medications: No medications were administered Outcome: 18:16 Discharge ordered by . kb 18:37 Patient left the ED. iw Signatures: Leela Maldonado, ROBBIN SALASP-Mai Geron[place] mr Marissa Granger, RN RN iw
--- NOTE | 2020-04-19 18:17 | EDPHYS ---
Physician Documentation [facility] Name: Princess Deras Age: 54 yrs Sex: Female : 1965 Arrival Date: 04/19/2020 Time: 14:43 Bed Waiting Private MD: ED Physician Mani Crabtree HPI: 04/19 23:36 This 54 yrs old Female presents to ER via Ambulatory with complaints of Cough.kb 23:36 The patient or guardian reports cough, that is intermittent, described as mild, with no kb sputum. Onset: The symptoms/episode began/occurred yesterday. Severity of symptoms: At their worst the symptoms were mild, in the emergency department the symptoms are unchanged. Modifying factors: The symptoms are alleviated by nothing, the symptoms are aggravated by nothing. Associated signs and symptoms: Pertinent positives: rhinorrhea. The patient has not experienced similar symptoms in the past. The patient has not recently seen a physician. Pt reports cough, congestion and headache that started yesterday. diagnosed with COVID yesterday. Historical: - Allergies: 16:32 No Known Allergies; iw - Home Meds: 16:32 venlafaxine oral oral once daily [Active]; levothyroxine oral [Active]; iw - PMHx: 16:32 None; iw - PSHx: 16:32 nephrectomy; iw ROS: 23:35 Constitutional: Negative for fever, chills, and weight loss, Cardiovascular: Negative kb for chest pain, palpitations, and edema, Abdomen/GI: Negative for abdominal pain, nausea, vomiting, diarrhea, and constipation, Back: Negative for injury and pain, MS/Extremity: Negative for injury and deformity, Skin: Negative for injury, rash, and discoloration, Neuro: Negative for weakness, numbness, tingling, and seizure. +headache 23:35 Respiratory: Positive for cough, Negative for dyspnea on exertion, hemoptysis, orthopnea, pleurisy, shortness of breath, sputum production, wheezing. 23:35 ENT: Positive for sinus congestion. kb Exam: 23:36 Constitutional: This is a well developed, well nourished patient who is awake, alert, kb and in no acute distress. Head/Face: Normocephalic, atraumatic. Chest/axilla: Normal chest wall appearance and motion. Nontender with no deformity. No lesions are appreciated. Cardiovascular: Regular rate and rhythm with a normal S1 and S2. No gallops, murmurs, or rubs. Normal PMI, no JVD. No pulse deficits. Respiratory: Lungs have equal breath sounds bilaterally, clear to auscultation and percussion. No rales, rhonchi or wheezes noted. No increased work of breathing, no retractions or nasal flaring. Abdomen/GI: Soft, non-tender, with normal bowel sounds. No distension or tympany. No guarding or rebound. No evidence of tenderness throughout. Skin: Warm, dry with normal turgor. Normal color with no rashes, no lesions, and no evidence of cellulitis. MS/ Extremity: Pulses equal, no cyanosis. Neurovascular intact. Full, normal range of motion. Neuro: Awake and alert, GCS 15, oriented to person, place, time, and situation. Cranial nerves II-XII grossly intact. Motor strength 5/5 in all extremities. Sensory grossly intact. Cerebellar exam normal. Normal gait. Vital Signs: 16:29 Pulse 73; Resp 18 S; Temp 99.3; Pulse Ox 100% on R/A; Weight 108.86 kg; Height 5 ft. 10 iw in. (177.80 cm); 16:32 BP 171 / 94; iw 16:29 Body Mass Index 34.44 (108.86 kg, 177.80 cm) iw MDM: 16:35 Patient medically screened. kb 23:34 Data reviewed: vital signs, nurses notes. Data interpreted: Pulse oximetry: on room air kb is 100 %. Interpretation: normal. Counseling: I had a detailed discussion with the patient and/or guardian regarding: the historical points, exam findings, and any diagnostic results supporting the discharge/admit diagnosis, lab results, the need for outpatient follow up, a family practitioner, to return to the emergency department if symptoms worsen or persist or if there are any questions or concerns that arise at home. 04/19 18:14 Order name: COVID-19/FLU A+B; Complete Time: 18:15 EDMS Administered Medications: No medications were administered Disposition: 04/19/20 18:16 Discharged to Home. Impression: Coronavirus infection, unspecified. - Condition is Stable. - Discharge Instructions: Viral Respiratory Infection, [id number], COVID-19. - Medication Reconciliation Form, Thank You Letter, Antibiotic Education, Prescription Opioid Use form. - Follow up: Emergency Department; When: As needed; Reason: Worsening of condition. Follow up: Private Physician; When: 2 - 3 days; Reason: Recheck today's complaints, Continuance of care, Re-evaluation by your physician. Addendum: 04/25/2020 19:16 Co-signature as Attending Physician, Mani Crabtree MD. m a2 Signatures: Dispatcher [employer] EDNV Leela Maldonado, DASHAWN-C PROGRAM EVALUATOR-CkMarissa Damon, DANA RN iw Bro, MD PAWEL Singleton ma2 Corrections: (The following items were deleted from the chart) 04/19 17:13 16:35 CORONAVIRUS+MR.LAB.BRZ ordered. EDNV EDNV 17:14 16:35 Influenza Screen (A \T\ B)+BA.LAB.BRZ ordered. [facility] EDNV 18:37 18:16 04/19/2020 18:16 Discharged to Home. Impression: Coronavirus infection, iw unspecified. Condition is Stable. Forms are Medication Reconciliation Form, Thank You Letter, Antibiotic Education, Prescription Opioid Use. Follow up: Emergency Department; When: As needed; Reason: Worsening of condition. Follow up: Private Physician; When: 2 - 3 days; Reason: Recheck today's complaints, Continuance of care, Re-evaluation by your physician. kb 23:36 23:35 Constitutional: Negative for fever, chills, and weight loss, Cardiovascular: kb Negative for chest pain, palpitations, and edema, Abdomen/GI: Negative for abdominal pain, nausea, vomiting, diarrhea, and constipation, Back: Negative for injury and pain, MS/Extremity: Negative for injury and deformity, Skin: Negative for injury, rash, and discoloration, Neuro: Negative for headache, weakness, numbness, tingling, and seizure, kb
[2020-04-19 19:34] VITALS: TEMP 99.3; O2SAT 100
[2020-04-19 19:35] VITALS: BP 171/94
== END 2020-04-19 18:37 | disposition home or self-care (01) ==
LOC: ER 14:40
DX: U07.1 COVID-19 (principal)
CPT/HCPCS: 0240U; 99281

== ENCOUNTER 2020-05-04 10:20 | Emergency (ER) | payer BC ==
[2020-05-04 13:11] LABS: Absolute Lymphocytes (CBC) 1.2 K/uL (0.7-4.9); Basophils % 0.4 % (0-1.3); Hematocrit 40.4 % (36.0-45.0); Lymphocytes % 13.5 % (15.3-44.8); MPV 9.4 fL (7.6-11.3); Protime INR 1.03; RBC Red Blood Cell Count 4.89 M/uL (3.86-4.86)
[2020-05-04] MEDS ORDERED: MORPHINE 4 MG/ML SYR IV ONE ×2 (13:13→17:00)
[2020-05-04] MEDS ORDERED: METHYLPREDNISOLONE 125 MG INJ IV ONE (13:15)
[2020-05-04] MEDS ORDERED: AZITHROMYCIN IV 500 MG in NA CHLORIDE 0.9% 250 ML IVPB ONE (13:16)
[2020-05-04] MEDS ORDERED: ONDANSETRON 4 MG/2 ML VIAL IV ONE (13:17)
[2020-05-04 13:25] LABS: ALT/SGPT 40 U/L (12-78); AST/SGOT 31 U/L (15-37); Albumin 3.5 g/dL (3.4-5.0); Alkaline Phosphatase 136 U/L (45-117); BUN Blood Urea Nitrogen 22 mg/dL (7-18); Bicarbonate 29 mmol/L (21-32); Bilirubin Direct < 0.1 mg/dL (0-0.2); Bilirubin Total 0.3 mg/dL (0.2-1.0); Glucose Level 83 mg/dL (74-106); Magnesium 2.5 mg/dL (1.8-2.4); NT PRO-BNP 218 pg/mL (<125); Potassium 4.1 mmol/L (3.5-5.1); Protein, Total 7.9 g/dL (6.4-8.2); Sodium Level 143 mmol/L (136-145); Troponin (Emerg Dept Use Only) < 0.02 ng/mL (0.0-0.045)
--- NOTE | 2020-05-04 14:37 | RAD REPORT ---
EXAM DESCRIPTION: RAD - Chest Single View - 05/04/2020 2:13 pm CLINICAL HISTORY: CONGESTION, recent positive COVID diagnosis, cough, headache, neck pain COMPARISON: Portable February 2019 TECHNIQUE: AP portable chest image was obtained 05/04/2020 2:13 pm . FINDINGS: Lung volumes are reduced compared to the prior study. There is no dense consolidation pres ent. However, bilateral interstitial opacification is present with patchy alveolar opacities in the m id and lower left lung field and minimally in the right lung base. Trachea is midline. Heart and vasculature are normal. No measurable pleural effusion and no pneumothorax. No acute bony abnormality seen. No acute aortic findings suspected. IMPRESSION: Bilateral interstitial and alveolar opacities are present consistent with a viral pneumo majo. Given the provided history this is most likely a mild COVID-19 pneumonia.
[2020-05-04] MEDS ORDERED: KETOROLAC 30 MG/ML INJ ONE (15:58)
--- NOTE | 2020-05-04 16:03 | ER ---
Nurse's Notes [facility] Name: Princess Deras Age: 55 yrs Sex: Female : 1965 Arrival Date: 05/04/2020 Time: 10:21 Bed 25 Private MD: Diagnosis: Coronavirus infection, unspecified Presentation: 05/04 10:45 Chief complaint: Patient states: Covid positive since 04/19. Nausea, Cough, ARROYO/neck pain. ss Fever 99 at home. Coronavirus screen: Client denies travel out of the [place] in the last 14 days. At this time, the client does not indicate any symptoms associated with coronavirus-19. Ebola Screen: Patient denies travel to an Ebola-affected area in the 21 days before illness onset. Resp Distress? No respiratory distress is noted at this time. Initial Sepsis Screen: Does the patient meet any 2 criteria? HR > 90 bpm. No. Patient's initial sepsis screen is negative. Does the patient have a suspected source of infection? Yes: Productive cough/pneumonia. Risk Assessment: Do you want to hurt yourself or someone else? Patient reports no desire to harm self or others. Onset of symptoms was April 19, 2020. 10:45 Method Of Arrival: Ambulatory ss 10:45 Acuity: PIYUSH 3 ss Historical: - Allergies: 10:45 No Known Allergies; ss - PMHx: 10:45 Hypothyroidism; ss - PSHx: 10:45 nephrectomy; knee replacerment L; ss - Immunization history:: Flu vaccine is up to date. - Social history:: Smoking status: Patient denies any tobacco usage or history of. - Family history:: not pertinent. Screenin:19 Abuse screen: Denies threats or abuse. Denies injuries from another. Nutritional ec1 screening: No deficits noted. Tuberculosis screening: No symptoms or risk factors identified. Fall Risk No fall in past 12 months (0 pts). No secondary diagnosis (0 pts). IV access (20 points). Ambulatory Aid- None/Bed Rest/Nurse Assist (0 pts). Gait- Normal/Bed Rest/Wheelchair (0 pts) Mental Status- Oriented to own ability (0 pts). Assessment: 13:19 General: Appears uncomfortable, Behavior is calm, cooperative. Neuro: Level of ec1 Consciousness is awake, alert, obeys commands. Cardiovascular: Heart tones S1 S2 Patient's skin is warm and dry. Respiratory: Reports cough that is productive, green sputum Airway is patent Respiratory effort is even, unlabored, Breath sounds are clear bilaterally. GI: Reports nausea. : No signs and/or symptoms were reported regarding the genitourinary system. EENT: No signs and/or symptoms were reported regarding the EENT system. Derm: No signs and/or symptoms reported regarding the dermatologic system. Musculoskeletal: No signs and/or symptoms reported regarding the musculoskeletal system. 14:12 Reassessment: Patient appears in no apparent distress at this time. No changes from ec1 previously documented assessment. Patient and/or family updated on plan of care and expected duration. Pain level reassessed. Pain: Complains of pain in neck, left arm Pain currently is 10 out of 10 on a pain scale. 15:36 Reassessment: Patient appears in no apparent distress at this time. No changes from ec1 previously documented assessment. Patient and/or family updated on plan of care and expected duration. Pain level reassessed. 16:13 Reassessment: Patient appears in no apparent distress at this time. No changes from ec1 previously documented assessment. Patient and/or family updated on plan of care and expected duration. Pain level reassessed. Vital Signs: 10:45 BP 151 / 87; Pulse 97; Resp 17; Temp 98.3; Pulse Ox 97% on R/A; Weight 111.13 kg; ss Height 5 ft. 10 in. (177.80 cm); Pain 10/10; 13:09 BP 141 / 88; Pulse 71; Resp 22 S; Pulse Ox 98% on R/A; ec1 14:00 BP 154 / 90; Pulse 77; Resp 12 S; Pulse Ox 97% on R/A; Pain 10/10; ec1 14:45 BP 158 / 90; Pulse 73; Resp 14 S; Pulse Ox 95% on R/A; ec1 15:36 BP 160 / 93; Pulse 76; Resp 16 S; Pulse Ox 99% on R/A; ec1 10:45 Body Mass Index 35.15 (111.13 kg, 177.80 cm) ED Course: 10:21 Patient arrived in ED. rg4 10:44 Arm band placed on. 10:47 Triage completed. 12:22 Catrachita Moctezuma, RN is Primary Nurse. ec1 12:25 Janes Roca PA is PHCP. cp 12:25 Mani Crabtree MD is Attending Physician. cp 13:00 Initial lab(s) drawn, by me, sent to lab. Inserted saline lock: 20 gauge in left jp3 antecubital area, using aseptic technique. Blood collected. Patient maintains SpO2 saturation greater than 95% on room air. 13:10 EKG done, by ED staff, reviewed by Mani Crabtree MD. jp3 13:20 Patient has correct armband on for positive identification. Bed in low position. ec1 14:14 XRAY Chest (1 view) In Process Unspecified. EDMS 16:13 No provider procedures requiring assistance completed. IV discontinued, intact, ec1 bleeding controlled. Administered Medications: 13:18 Drug: NS 0.9% 1000 ml Route: IV; Rate: 1 bolus; Site: left antecubital; ec1 14:20 Follow up: IV Status: Completed infusion; IV Intake: 1000ml ec1 13:18 Drug: Albuterol HFA Inhaler 2 puffs Route: Inhalation; ec1 14:13 Follow up: Response: No adverse reaction ec1 13:19 Drug: morphine 4 mg Route: IVP; Site: left antecubital; ec1 14:13 Follow up: Response: Pain is unchanged, physician notified ec1 13:19 Drug: Zofran (Ondansetron) 4 mg Route: IVP; Site: left antecubital; ec1 14:13 Follow up: Response: No adverse reaction ec1 13:19 Drug: SOLU-Medrol 125 mg Route: IVP; Site: left antecubital; ec1 14:13 Follow up: Response: No adverse reaction ec1 13:19 Drug: AZITHromycin 500 mg Route: IVPB; Infused Over: 1 hrs; Site: left antecubital; ec1 14:20 Follow up: IV Status: Completed infusion; IV Intake: 250ml ec1 14:31 Drug: Flexeril 10 mg Route: PO; ec1 15:37 Follow up: Response: Pain is unchanged, physician notified ec1 15:51 Drug: TORadol 30 mg Route: IVP; Site: left antecubital; ec1 16:14 Follow up: Response: No adverse reaction ec1 Intake: 14:20 IV: 250ml; Total: 250ml. ec1 14:20 IV: 1000ml; Total: 1250ml. ec1 Outcome: 16:03 Discharge ordered by . ma2 16:13 Discharged to home ambulatory. ec1 16:13 Condition: good 16:13 Discharge instructions given to patient, Instructed on discharge instructions, follow up and referral plans. Demonstrated understanding of instructions, follow-up care, medications, Prescriptions given X X 7 16:14 Patient left the ED. ec1 Signatures: Dispatcher [employer] EDIA Brenda Javed RN RN ss Janes Roca, DALE PA Elizabeth Delgado rg4 Mani Crabtree MD MD ma2 Pisarski, Jacob jp3 Catrachita Moctezuma RN RN ec1 Corrections: (The following items were deleted from the chart) 10:44 10:44 Arm band placed on Patient placed in an exam room, on a stretcher, [facility]
--- NOTE | 2020-05-04 16:03 | EDPHYS ---
Physician Documentation [facility] Name: Princess Deras Age: 55 yrs Sex: Female : 1965 Arrival Date: 05/04/2020 Time: 10:21 Bed 25 Private MD: ED Physician Mani Crabtree HPI: 05/04 13:29 This 55 yrs old Female presents to ER via Ambulatory with complaints of ma2 Cough, Congestion, Covid+, Neck Pain, <24hrs Old. 13:29 This 55 yrs old Female presents to ER via Ambulatory with complaints of ma2 Cough, Congestion, Covid+, Neck Pain, <24hrs Old. 13:29 Onset: The symptoms/episode began/occurred gradually, 1 week(s) ago. Severity of ma2 symptoms: At their worst the symptoms were moderate, in the emergency department the symptoms are unchanged. Associated signs and symptoms: Pertinent negatives: ear ache, fever, rhinorrhea, sore throat. The patient has not experienced similar symptoms in the past. Historical: - Allergies: 10:45 No Known Allergies; ss - PMHx: 10:45 Hypothyroidism; ss - PSHx: 10:45 nephrectomy; knee replacerment L; ss - Immunization history:: Flu vaccine is up to date. - Social history:: Smoking status: Patient denies any tobacco usage or history of. - Family history:: not pertinent. ROS: 13:29 Constitutional: Negative for fever, chills, and weight loss. ma2 13:29 All other systems are negative. Exam: 13:29 Constitutional: This is a well developed, well nourished patient who is awake, alert, ma2 and in no acute distress. Eyes: Pupils equal round and reactive to light, extra-ocular motions intact. Lids and lashes normal. Conjunctiva and sclera are non-icteric and not injected. Cornea within normal limits. Periorbital areas with no swelling, redness, or edema. ENT: Nares patent. No nasal discharge, no septal abnormalities noted. Tympanic membranes are normal and external auditory canals are clear. Oropharynx with no redness, swelling, or masses, exudates, or evidence of obstruction, uvula midline. Mucous membranes moist. Neck: Trachea midline, no thyromegaly or masses palpated, and no cervical lymphadenopathy. Supple, full range of motion without nuchal rigidity, or vertebral point tenderness. No Meningismus. Chest/axilla: Normal chest wall appearance and motion. Nontender with no deformity. No lesions are appreciated. Cardiovascular: Regular rate and rhythm with a normal S1 and S2. No gallops, murmurs, or rubs. Normal PMI, no JVD. No pulse deficits. Respiratory: Lungs have equal breath sounds bilaterally, clear to auscultation and percussion. No rales, rhonchi or wheezes noted. No increased work of breathing, no retractions or nasal flaring. Abdomen/GI: Soft, non-tender, with normal bowel sounds. No distension or tympany. No guarding or rebound. No evidence of tenderness throughout. MS/ Extremity: Pulses equal, no cyanosis. Neurovascular intact. Full, normal range of motion. Neuro: Awake and alert, GCS 15, oriented to person, place, time, and situation. Cranial nerves II-XII grossly intact. Motor strength 5/5 in all extremities. Sensory grossly intact. Cerebellar exam normal. Normal gait. Vital Signs: 10:45 BP 151 / 87; Pulse 97; Resp 17; Temp 98.3; Pulse Ox 97% on R/A; Weight 111.13 kg; ss Height 5 ft. 10 in. (177.80 cm); Pain 10/10; 13:09 BP 141 / 88; Pulse 71; Resp 22 S; Pulse Ox 98% on R/A; ec1 14:00 BP 154 / 90; Pulse 77; Resp 12 S; Pulse Ox 97% on R/A; Pain 10/10; ec1 14:45 BP 158 / 90; Pulse 73; Resp 14 S; Pulse Ox 95% on R/A; ec1 15:36 BP 160 / 93; Pulse 76; Resp 16 S; Pulse Ox 99% on R/A; ec1 10:45 Body Mass Index 35.15 (111.13 kg, 177.80 cm) MDM: 12:44 Patient medically screened. [facility] 13:29 Differential Diagnosis: Bronchitis Influenza Upper Respiratory Infection Sinusitis ma2 Pharyngitis Viral Syndrome Pneumonia. 16:02 Data reviewed: vital signs, nurses notes. Counseling: I had a detailed discussion with ma2 the patient and/or guardian regarding: the historical points, exam findings, and any diagnostic results supporting the discharge/admit diagnosis, the presence of at least one elevated blood pressure reading (>120/80) during this emergency department visit, the need for outpatient follow up. Response to treatment: the patient's symptoms have markedly improved after treatment. 05/04 12:47 Order name: Basic Metabolic Panel ma2 05/04 12:47 Order name: CBC with Diff ma2 05/04 12:47 Order name: LFT's; Complete Time: 14:30 ma2 05/04 12:47 Order name: Magnesium; Complete Time: 14:30 ma2 05/04 12:47 Order name: NT PRO-BNP; Complete Time: 14:30 ma2 05/04 12:47 Order name: PT-INR; Complete Time: 14:30 ma2 05/04 12:47 Order name: Troponin (emerg Dept Use Only); Complete Time: 14:30 ma2 05/04 12:47 Order name: XRAY Chest (1 view); Complete Time: 15:33 ma2 05/04 12:48 Order name: Basic Metabolic Panel; Complete Time: 14:30 EDMS 05/04 12:48 Order name: CBC with Automated Diff; Complete Time: 14:30 EDMS 05/04 12:47 Order name: EKG; Complete Time: 12:48 ma2 05/04 12:47 Order name: Cardiac monitoring; Complete Time: 13:18 ma2 05/04 12:47 Order name: EKG - Nurse/Tech; Complete Time: 13:18 ma2 05/04 12:47 Order name: IV Saline Lock; Complete Time: 13:00 ma2 05/04 12:47 Order name: Labs collected and sent; Complete Time: 13:00 ma2 05/04 12:47 Order name: O2 Per Protocol; Complete Time: 13:01 ma2 05/04 12:47 Order name: O2 Sat Monitoring; Complete Time: 13:01 ma2 Administered Medications: 13:18 Drug: NS 0.9% 1000 ml Route: IV; Rate: 1 bolus; Site: left antecubital; ec1 14:20 Follow up: IV Status: Completed infusion; IV Intake: 1000ml ec1 13:18 Drug: Albuterol HFA Inhaler 2 puffs Route: Inhalation; ec1 14:13 Follow up: Response: No adverse reaction ec1 13:19 Drug: morphine 4 mg Route: IVP; Site: left antecubital; ec1 14:13 Follow up: Response: Pain is unchanged, physician notified ec1 13:19 Drug: Zofran (Ondansetron) 4 mg Route: IVP; Site: left antecubital; ec1 14:13 Follow up: Response: No adverse reaction ec1 13:19 Drug: SOLU-Medrol 125 mg Route: IVP; Site: left antecubital; ec1 14:13 Follow up: Response: No adverse reaction ec1 13:19 Drug: AZITHromycin 500 mg Route: IVPB; Infused Over: 1 hrs; Site: left antecubital; ec1 14:20 Follow up: IV Status: Completed infusion; IV Intake: 250ml ec1 14:31 Drug: Flexeril 10 mg Route: PO; ec1 15:37 Follow up: Response: Pain is unchanged, physician notified ec1 15:51 Drug: TORadol 30 mg Route: IVP; Site: left antecubital; ec1 16:14 Follow up: Response: No adverse reaction ec1 Disposition: 05/04/20 16:03 Discharged to Home. Impression: Coronavirus infection, unspecified. - Condition is Stable. - Discharge Instructions: COVID-19. - Prescriptions for Diclofenac Sodium 75 mg Oral Tablet Sustained Release - take 1 tablet by ORAL route 2 times per day; 30 tablet. Zithromax Z- Scott 250 mg Oral Tablet - take 1 tablet by ORAL route as directed for 5 days Day 1 - take two (2) tablets one time. Day 2, 3, 4 , 5 take one (1) tablet once daily.; 6 tablet. Medrol (Scott) 4 mg Oral Tablets, Dose Pack - take 1 tablet by ORAL route as directed - follow package instructions; 1 packet. Albuterol Sulfate 90 mcg/actuation - inhale 1-2 puff by INHALATION route every 4-6 hours; 1 Inhaler. Zofran 4 mg Oral Tablet - take 1 tablet by ORAL route every 12 hours As needed; 20 tablet. Cyclobenzaprine 10 mg Oral Tablet - take 1 tablet by ORAL route every 8 hours As needed; 30 tablet. promethazine 25 mg Oral Tablet - take 1 tablet by ORAL route every 6 hours As needed; 20 tablet. - Medication Reconciliation Form, Thank You Letter, Antibiotic Education, Prescription Opioid Use form. - Follow up: Private Physician; When: Tomorrow; Reason: Continuance of care. Signatures: Dispatcher [employer] Brenda Carrasco RN RN ss Mani Crabtree MD MD ma2 Catrachita Moctezuma RN RN ec1 Corrections: (The following items were deleted from the chart) 16:14 16:03 05/04/2020 16:03 Discharged to Home. Impression: Coronavirus infection, ec1 unspecified. Condition is Stable. Prescriptions for Diclofenac Sodium 75 mg Oral Tablet Sustained Release - take 1 tablet by ORAL route 2 times per day; 30 tablet, Zithromax Z-Scott 250 mg Oral Tablet - take 1 tablet by ORAL route as directed for 5 days Day 1 - take two (2) tablets one time. Day 2, 3, 4 , 5 take one (1) tablet once daily.; 6 tablet, Medrol (Scott) 4 mg Oral Tablets, Dose Pack - take 1 tablet by ORAL route as directed - follow package instructions; 1 packet, Albuterol Sulfate 90 mcg/actuation - inhale 1-2 puff by INHALATION route every 4-6 hours; 1 Inhaler, Zofran 4 mg Oral Tablet - take 1 tablet by ORAL route every 12 hours As needed; 20 tablet. and Forms are Medication Reconciliation Form, Thank You Letter, Antibiotic Education, Prescription Opioid Use. Follow up: Private Physician; When: Tomorrow; Reason: Continuance of care. [email or web address]
[2020-05-04 16:19] VITALS: TEMP 98.3
[2020-05-04] MEDS ORDERED: ALBUTEROL INHALER 60 PUFF/8 GM IH PRN (16:22)
[2020-05-04 16:24] VITALS: BP 160/93; O2SAT 99
[2020-05-04] MEDS ORDERED: NA CHLORIDE 0.9% 1,000 ML IV ONE (17:00)
== END 2020-05-04 16:14 | disposition home or self-care (01) ==
LOC: ER 10:20
DX: U07.1 COVID-19 (principal)
CPT/HCPCS: 96365; 85025; 80048; 36415; 83735; 85610; 80076; 84484; 83880; 71045; 96375; 99285; J0456; J7050; J7030; J2930; J2405

== ENCOUNTER 2020-09-24 16:53 | Emergency (ER) | payer BC ==
--- OUTSIDE RECORDS SUMMARY | 2020-09-24 16:56 | XMS REPORT | Continuity of Care Document ---
:1965 Author Organization [facility] t Address [address] [place] [address] Care Team Providers Name Role Phone Chuy Parham Attending Clinician Payers Payer Name Policy Type Policy Number Effective Date Expiration Date S ource Problems This patient has no known problems. Allergies, Adverse Reactions, Alerts Allergy Allergy Status Severity Reaction(s) Onset Inactive Treating Comm ents Source Name Type Date Date Clinician No Known DA Active U 2018-03 [facility] - Clear s 00:00: Workman 00 [facility] Medications Ordered Filled Start Stop Current Ordering Indication Dosage Frequency Signature Comments Components Source Medication Medication Date Date Medication? Clinician (SIG) Name Name Meloxicam Meloxicam 2020-0 2020- No Kathy 1-[address] 9-17 10-17 [facility] tablets as James es - 00:00: 00:00 needed for Memori a 00 :00 pain; take l with food Outpati ent Clinics Cyclobenzap Cyclobenzap 2020- No Kathy 1-[address] [facility] rine HCl rine HCl 9-17 10-17 [facility] tablets [facility] Diflucan Diflucan 2019- No Kathy [address] [facility] 7-29 07-31 [facility] :[facility] ent Clinics Gabapentin Gabapentin Yes Kathy [address] [facility] Amoxicillin Amoxicillin Yes Kathy [address] [facility] -Pot -Pot [facility] - Clavulanate Clavulanate M [facility] l Outpati ent Clinics Venlafaxine Venlafaxine Yes Kathy [address] [facility] HCl ER HCl ER Millender with food [facility] Calcium Calcium Yes Kathy [address] [facility] Carbonate-V Carbonate-V Millender with meals [facility] - it D-Min it D-Min [facility] Outpat[facility] ent Clinics Duavee Duavee Yes Kathy [address] [facility] Levothyroxi Levothyroxi Yes Kathy [address] [facility] ne Sodium ne Sodium Millender on an [facility] - empty [facility]oria stomach in l the Outpati morning ent Clinics Ferrous Ferrous Yes Kathy [address] [facility] Sulfate Sulfate [facility] Vitamin Vitamin Yes Kathy not [facility] B-12 B-12 [facility] defined [facility] Multivitami Multivitami Yes Kathy not [facility] n Adult n Adult [facility]ender defined [facility] Loratadine Loratadine Yes Kathy TAKE ONE [facility] (1) [facility] - TABLET(S) Memoria BY MOUTH l ONCE A Outpati DAY. ent Clinics Immunizations Ordered Filled Immunization Date Status Comments [facility] e Immunization Name Name Flucelvax - single Flucelvax - single 2019-12-[address] [facility] - dose syringe dose syringe 00:00:00 [facility] Flucelvax Flucelvax 2017-12-[address] [facility] - 00[facility] [facility] Outpatient Clinics Procedures This patient has no known procedures. Encounters Start End Encounter Admission Attending Care Care Encounter Source Date/Time Date/Time Type Type Clinicians Facility Department ID 2020-06-17 2020-06-17 Outpatient [facility] [id number] [facility] 2020-06-06 2020-06-06 Outpatient [facility] [id number] [facility] 2020-05-13 2020-05-13 Outpatient [facility] [id number] [facility] 2020-05-10 2020-05-10 Emergency [facility] [id number] 16:33:00 19:19:00 Valerie Daniel [id number] [place] [id number] [place] [id number] 2020-05-10 2020-05-10 Outpatient [facility] [id number] [facility] 2020-05-06 2020-05-06 Outpatient [facility] [id number] [facility] 2020-04-29 2020-04-29 Outpatient [facility] [id number] [facility] 2020-04-26 2020-04-26 Outpatient [facility] [id number] [facility] 2019-12-03 2019-12-03 [facility] [id number] [facility] 15:40:00 15:40:00 [facility] Outpati ent Clinics 2019-08-17 2019-08-17 [facility] [id number] 12:09:00 12:09:00 t [facility] Medicine Outpati ent Clinics 2019-08-12 2019-08-12 [facility] [id number] [address] 13:40:00 13:40:00 t [facility] Medicine Outpati ent Clinics 2019-08-11 2019-08-11 [facility] [id number] 15:05:00 15:05:00 t [facility] Medicine Outpati ent Clinics 2019-08-11 2019-08-11 [facility] [id number] 10:58:00 10:58:00 t [facility] Medicine Outpati ent Clinics 2019-07-29 2019-07-29 [facility] [id number] 14:48:00 14:48:00 t [facility] Medicine Outpati ent Clinics 2019-03-05 2019-03-05 [facility] [id number] [address] 15:45:00 15:45:00 t [facility] Medicine Outpati ent Clinics 2019-02-26 2019-02-26 [facility] [id number] 13:28:00 13:28:00 t [facility] Medicine Outpati ent Clinics 2019-02-24 2019-02-24 [facility] [id number] 16:00:00 16:00:00 t [facility] Medicine Outpati ent Clinics 2018-10-13 2018-10-13 [facility] [id number] [address] 11:20:00 11:20:00 t [facility] Medicine Outpati ent Clinics 2018-09-09 2018-09-09 [facility] [id number] [address] 15[facility]40:00 15:40:00 t [facility] Medicine Outpati ent Clinics 2018-05-21 2018-05-21 [facility] [id number] [facility] 15:45:00 15:45:00 t [facility] Medicine Medicine Outpati ent Clinics 2018-05-16 2018-05-16 [facility] [id number] 14[facility]53:00 14:53:00 t [facility] Medicine Outpati ent Clinics 2018-05-15 2018-05-15 [facility] [id number] 15:45:00 15:45:00 t [facility] Medicine Medicine Outpati ent Clinics 2018-03-26 2018-03-26 [facility] [id number] [facility] 14:18:00 14:18:00 t [facility] Medicine Outpati ent Clinics 2018-03-21 2018-03-21 [facility] [id number] [facility] 16:00:00 16:00:00 t [facility] Medicine Outpati ent Clinics 2017-12-17 2017-12-17 [facility] [id number] [facility] 08:30:00 08:30:00 t [facility] Medicine Outpati ent Clinics 2017-09-25 2017-09-25 [facility] [id number] [address] 14:52:00 14:52:00 t [facility] Medicine Outpati ent Clinics 2017-09-25 2017-09-25 [facility] [id number] [address] 13:45:00 13:45:00 t [facility] Medicine Medicine Outpati ent Clinics 2017-08-09 2017-08-09 [facility] [id number] 10:15:00 10:15:00 t [facility] Medicine Outpati ent Clinics 2017-08-05 2017-08-05 [facility] [id number] 09:34:00 09:34:00 t [facility] Medicine Outpati ent Clinics Results Test Description Test Time Test Comments [...] measure: (test code = GFR) mL/min/1.7 3 [id number] Range:Healthy A dults >90 mL/min/1.73 m2 For Chronic Kidney Disease: Stage II Mi ld Decrease in GFR 60-9 0 Stage III Moderate Decrease in GFR 30-59 Stage IV Severe Decrease in GFR 15-29 Stage V Kidney Failure <15 CREATININE (test code = CREAT) 1.23 mg/dL 0.55-1.30 N CALCIUM (test code = CA) 8.5 mg/dL 8.2-10.1 N HGB [id number] 06:07:00 Test Item Value Reference Range Interpretation Comments HEMOGLOBIN (test code = HGB) 11.6 g/dL 12-16 L HEMATOCRIT (test code = HCT) 36.4 % 37-47 L PROTHROMBIN [id number] 14:21:00 Test Item Value Reference Range Interpretation [...] v butler IS PATIENT ON ANTICOAGULANTS ? NHas Lab been notified if Patient is on Heparin Drip? NOIf Yes, orderCBC, OCCULT BLOOD, PT every other day NTHROMBOPLASTIN TIME [id number] 14:21:00 Test Item Value Reference Range Interpretation Comments PTT ACTIVATED (test 42.3 secs 24.9-37.0 HH VERIFIED BY REPEAT code = APTT) ANALYSIS.CRITIC AL VALUE CALLED TO MYRA WITH ' OFFICEREAD BACK & CONFIRMED? YESB Y F.LAB.AEG 01/26 1420 IS PATIENT ON ANTICOAGULANTS ? NHas Lab been notified if Patient is on Heparin Drip? NOIf Yes, orderCBC, OCCULT BLOOD, PT every other day NCOMPREHENSIVE METABOLIC [id number] 13:08:00 Test Item Value Reference Range Interpretation [...] RATE (test code = GFR) mL/mi n/1.73 [id number] Range:Healthy Adults >90 mL/min/1.73 m2 For Chronic [...] TOTAL (test code = ALKP) CBC W/AUTO [id number] 12:29:00 Test Item Value Reference Range Interpretation [...]
[2020-09-24] MEDS ORDERED: MORPHINE 4 MG/ML SYR ONE ×2 (18:46→21:53)
[2020-09-24] MEDS ORDERED: ONDANSETRON 4 MG/2 ML VIAL ONE ×2 (18:46→20:01)
[2020-09-24 18:47] LABS: Absolute Lymphocytes (CBC) 1.5 K/uL (0.7-4.9); Basophils % 0.3 % (0-1.3); Hematocrit 36.2 % (36.0-45.0); MPV 11.8 fL (7.6-11.3); RBC Red Blood Cell Count 4.41 M/uL (3.86-4.86)
--- NOTE | 2020-09-24 19:15 | RAD REPORT ---
EXAM DESCRIPTION: CT - Abdomen Pelvis W Contrast - 09/24/2020 6:42 pm CLINICAL HISTORY: EPIGASTRIC PAIN COMPARISON: No comparisons TECHNIQUE: Biphasic, helical CT imaging of the abdomen and pelvis was performed following 100 ml non -ionic IV contrast. No oral contrast administered. All CT scans are performed using dose optimization technique as appropriate and may include automated exposure control or mA/KV adjustment according to patient size. FINDINGS: No suspicious findings in the lung bases. No focal finding in the liver parenchyma. No focal splenic abnormality. There is no pancreatic mass p resent. Mild congestion or edema is seen along the sims of the gallbladder. No biliary tree dilatati on. Stones can be occult. There is a trace amount of stranding in the fat adjacent to the duodenal C- loop and pancreatic head. A few small reactive lymph nodes are present. Normal right renal function. Left kidney is absent. No adrenal abnormality. No bladder abnormalities. No gastric dilatation or gastric wall thickening seen. Ileum and jejunum show no suspicious findings. No appendicitis findings. Moderate stool volume is present. No free air or pneumatosis. No hernia, mass or bulky lymphadenopathy. No suspicious bony findings. IMPRESSION: Sims of the gallbladder appear slightly edematous and there is mild congestion or edema in the fat adjacent to the duodenal C-loop and head of the pancreas. Gallstones can be occult and cholecystitis would be a prime consideration. Follow-up gallbladder ultr asound may be helpful. Pancreatitis or duodenitis are possible but need correlation with clinical and lab findings.
[2020-09-24 19:24] LABS: Albumin 3.6 g/dL (3.4-5.0); Bilirubin Direct 0.2 mg/dL (0-0.2); Bilirubin Total 0.4 mg/dL (0.2-1.0); Potassium 3.7 mmol/L (3.5-5.1); Protein, Total 7.1 g/dL (6.4-8.2)
[2020-09-24 19:39] LABS: Urine Blood Negative (Negative); Urine Glucose Negative (Negative); Urine Protein Negative (Negative); Urine Specific Gravity >=1.030 (1.005-1.030); Urine pH 5.5 (5.0-7.0)
[2020-09-24] MEDS ORDERED: NA CHLORIDE 0.9% 1,000 ML ONE (20:01)
[2020-09-24] MEDS ORDERED: HYDROMORPHONE HCL 1 MG/ML INJ ONE (20:01)
--- NOTE | 2020-09-24 21:19 | ER ---
Nurse's Notes [facility] Name: Princess Deras Age: 55 yrs Sex: Female : 1965 Arrival Date: 09/24/2020 Time: 16:53 Bed 17 Private MD: Diagnosis: Acute cholecystitis-Gallstone pancreatitis Presentation: 09/24 17:15 Chief complaint: Patient states: Upper abdominal pain x 4 days. Reports nausea. Sees ca1 Dr. Chand for GI issues. Hx of Ulcers and gall bladder problems. Has been taking Omeprazole, No relief. Coronavirus screen: Client denies travel out of the [place] in the last 14 days. nausea, Client presents with at least one sign or symptom that may indicate coronavirus-19. Standard/surgical mask placed on the client. Provider contacted for isolation considerations. Ebola Screen: Patient negative for fever greater than or equal to 101.5 degrees Fahrenheit, and additional compatible Ebola Virus Disease symptoms Patient denies exposure to infectious person. Patient denies travel to an Ebola-affected area in the 21 days before illness onset. No symptoms or risks identified at this time. Initial Sepsis Screen: Does the patient meet any 2 criteria? No. Patient's initial sepsis screen is negative. Does the patient have a suspected source of infection? No. Patient's initial sepsis screen is negative. Risk Assessment: Do you want to hurt yourself or someone else? Patient reports no desire to harm self or others. Onset of symptoms was September 24, 2020. 17:15 Method Of Arrival: Ambulatory ca1 17:15 Acuity: PIYUSH 3 ca1 Historical: - Allergies: 17:17 No Known Allergies; ca1 - PMHx: 17:17 Hypothyroidism; ca1 - Immunization history:: Client reports receiving the 2nd dose of the Covid vaccine, Client reports receiving the 1st dose of the Covid vaccine, Flu vaccine is not up to date. - Social history:: Smoking status: Patient denies any tobacco usage or history of. Screenin:00 Abuse screen: Denies threats or abuse. Nutritional screening: No deficits noted. rb3 Tuberculosis screening: No symptoms or risk factors identified. Fall Risk None identified. Assessment: 18:00 General: Appears uncomfortable, Behavior is calm, cooperative. Pain: Complains of pain rb3 in epigastric area Pain currently is 7 out of 10 on a pain scale. Pain began x 4 days. Neuro: Level of Consciousness is awake, alert, obeys commands, Oriented to person, place, time, situation. Cardiovascular: Patient's skin is warm and dry. Respiratory: Airway is patent Respiratory effort is even, unlabored, Respiratory pattern is regular, symmetrical. GI: Reports nausea. : No signs and/or symptoms were reported regarding the genitourinary system. 18:30 Reassessment: Pt. went CT. rb3 19:35 Reassessment: Patient appears in no apparent distress at this time. Patient is alert, rr5 oriented x 3, equal unlabored respirations, skin warm/dry/pink. complaining of abdominal pain 12/25, ED provider informed with order made and carriedout. 20:20 Reassessment: Patient appears in no apparent distress at this time. Patient and/or rr5 family updated on plan of care and expected duration. Pain level reassessed. Patient is alert, oriented x 3, equal unlabored respirations, skin warm/dry/pink. 21:25 Reassessment: Patient appears in no apparent distress at this time. Patient is alert, rr5 oriented x 3, equal unlabored respirations, skin warm/dry/pink. for transfer other facility ( GI consult). 22:30 Reassessment: Patient appears in no apparent distress at this time. Patient is alert, rr5 oriented x 3, equal unlabored respirations, skin warm/dry/pink. Patient states symptoms have improved. 23:20 Reassessment: report given to [facility]. rr5 09/25 00:25 Reassessment: Patient appears in no apparent distress at this time. Patient is alert, rr5 oriented x 3, equal unlabored respirations, skin warm/dry/pink. awaiting for EMS transport. 01:20 Reassessment: Patient appears in no apparent distress at this time. resting eyes closed rr5 breathing spontaneously at room air. 02:20 Reassessment: Patient appears in no apparent distress at this time. Patient is alert, rr5 oriented x 3, equal unlabored respirations, skin warm/dry/pink. report given to [facility] ambulance, patient reports pain and feels nauseated, medication given prior to transfer. Vital Signs: 09/24 17:15 BP 153 / 91; Pulse 85; Resp 16 S; Temp 97(TE); Pulse Ox 99% on R/A; Weight 108.86 kg ca1 (R); Height 5 ft. 11 in. (180.34 cm) (R); Pain 10/10; 19:47 BP 162 / 85; Pulse 80; Resp 17; Pulse Ox 98% ; Pain 10/10; rr5 21:00 BP 145 / 89; Pulse 79; Resp 15; Pulse Ox 99% ; Pain 5/10; rr5 22:00 BP 126 / 90; Pulse 86; Resp 17; Pulse Ox 99% ; rr5 23:20 BP 136 / 73; Pulse 74; Resp 19; Pulse Ox 98% ; rr5 09/25 00:20 BP 126 / 71; Pulse 80; Resp 14; Pulse Ox 98% ; rr5 01:20 BP 132 / 62; Pulse 79; Resp 16; Pulse Ox 97% ; rr5 02:00 BP 132 / 85; Pulse 70; Resp 16; Pulse Ox 98% ; rr5 09/24 17:15 Body Mass Index 33.47 (108.86 kg, 180.34 cm) ca1 ED Course: 09/24 16:53 Patient arrived in ED. as 17:16 Triage completed. ca1 17:17 Arm band placed on right wrist. ca1 17:51 Zeferino Woodward NP is PHCP. pm1 17:51 Mo Soirano MD is Attending Physician. pm1 18:00 Patient has correct armband on for positive identification. Bed in low position. Call rb3 light in reach. Side rails up X 1. Pulse ox on. NIBP on. Warm blanket given. 18:19 Jill Guzman, RN is Primary Nurse. rb3 18:22 Inserted saline lock: 22 gauge in left antecubital area, using aseptic technique. rb3 ,using aseptic technique. IV inserted by Leti from CT Blood collected. 18:41 CT Abd/Pelvis - IV Contrast Only In Process Unspecified. EDMS 19:39 Primary Nurse role handed off by Jill Guzman, RN tt3 19:45 Salbador Chase, DANA is Primary Nurse. rr5 21:18 Initiated transfer at [facility] with Safia. tt3 21:35 Safia with [facility] stated that they would have to deny the request due to capacity. tt3 22:07 Initiated transfer at [facility] with Urmila. Stated she would do a bed check and call back. tt3 22:17 Urmila Knox called back with their physician to do doc to doc with Zeferino Woodward, tt3 INFANTRY OPERATIONS SPECIALIST, pt provider. Urmila asked for a face sheet to be faxed to [phone]. 22:39 Urmila Knox gave admin approval. The pt is going to [facility] Enrike Sexton tt3 [id number]. The accepting physician is Dr. Avila. Nurse to call report to [phone]. 09/25 02:20 No provider procedures requiring assistance completed. Patient transferred, IV remains rr5 in place. intact, No redness/swelling at site. Administered Medications: 09/24 18:30 Drug: morphine 4 mg Route: IVP; Site: left antecubital; rb3 19:30 Follow up: Response: No adverse reaction; RASS: Alert and Calm (0) rr5 18:30 Drug: Zofran (Ondansetron) 4 mg Route: IVP; Site: left antecubital; rb3 19:30 Follow up: Response: No adverse reaction rr5 19:45 Drug: Dilaudid (HYDROmorphone) 1 mg {Note: RASS 0.} Route: IVP; Site: left antecubital; rr5 20:45 Follow up: Response: No adverse reaction; RASS: Alert and Calm (0) rr5 19:46 Drug: NS 0.9% 1000 ml Route: IV; Rate: 100 ml/hr; Site: left antecubital; rr5 21:30 Follow up: Response: No adverse reaction; IV Status: Order to discontinue infusion; IV rr5 Intake: 200ml 19:47 Drug: Zofran (Ondansetron) 4 mg Route: IVP; Site: left antecubital; rr5 20:40 Follow up: Response: No adverse reaction rr5 21:34 Dru.375 grams of (Zosyn (piperacillin-tazobactam) 3.375 grams, NS 0.9% 100 ml) rr5 Route: IVPB; Infused Over: 60 mins; Site: left antecubital; 22:30 Follow up: Response: No adverse reaction; IV Status: Completed infusion; IV Intake: rr5 100ml 21:34 Drug: NS 0.9% 1000 ml Route: IV; Rate: 125 ml/hr; Site: left antecubital; rr5 09/25 02:20 Follow up: Response: No adverse reaction; IV Status: Infusion continued upon transfer; rr5 IV Intake: 500ml 09/24 21:34 Drug: morphine 4 mg {Note: rass 0.} Route: IVP; Site: left antecubital; rr5 22:30 Follow up: Response: No adverse reaction; RASS: Alert and Calm (0) rr5 09/25 02:18 Drug: Zofran (Ondansetron) 4 mg Route: IVP; Site: left antecubital; rr5 02:23 Follow up: Response: Medication administered at discharge. rr5 02:21 Drug: Dilaudid (HYDROmorphone) 1 mg {Note: rass 0.} Route: IVP; Site: left antecubital; rr5 02:23 Follow up: Response: Medication administered at discharge. rr5 Intake: 09/24 21:30 IV: 200ml; Total: 200ml. rr5 22:30 IV: 100ml; Total: 300ml. rr5 09/25 02:20 IV: 500ml; Total: 800ml. rr5 Outcome: 09/24 21:19 ER care complete, transfer ordered by . pm1 09/25 02:20 Transferred by ground EMS to [facility], Transfer form rr5 completed. 02:20 Condition: stable rr5 02:20 Instructed on the need for transfer. 02:22 Patient left the ED. rr5 Signatures: Dispatcher [employer] EDTatiana Bain Patrick, PRAFUL TELEGRAPH OFFICE MANAGER pm1 Salbador Chase RN RN rr5 Diana Moreno RN RN ca1 Aden Jackson tt3 Jill Guzman, RN RN rb3 Corrections: (The following items were deleted from the chart) 09/24 17:17 17:15 Chief complaint: Patient states: Upper abdominal pain x 4 days. Reports nausea. ca1 Sees Dr[address] Chand for GI issues. Hx of Ulcers and gall bladder problems ca1
--- NOTE | 2020-09-24 21:19 | EDPHYS ---
Physician Documentation [facility] Name: Princess Deras Age: 55 yrs Sex: Female : 1965 Arrival Date: 09/24/2020 Time: 16:53 Bed 17 Private MD: ED Physician Mo Soriano HPI: 09/24 18:06 This 55 yrs old Female presents to ER via Ambulatory with complaints of pm1 Epigastric Pain. 18:06 The patient presents with abdominal pain in the epigastric area. Onset: The pm1 symptoms/episode began/occurred 4 day(s) ago. The symptoms do not radiate. 18:06 Associated signs and symptoms: Pertinent positives: nausea, Pertinent negatives: chest pm1 pain, diarrhea, dysuria, fever, shortness of breath, vomiting. The symptoms are described as achy, constant. Modifying factors: The symptoms are alleviated by nothing, the symptoms are aggravated by smoothie that she drank 4 days ago. Severity of pain: in the emergency department the pain is actually worse. The patient has experienced similar episodes in the past, a few times, usually improved with PPI. The patient has not recently seen a physician. Patient with a history of cholelithiasis. Patient reports onset of epigastric pain after drinking a smoothie at [facility] that she did not know had cream as an ingredient.. Historical: - Allergies: 17:17 No Known Allergies; ca1 - PMHx: 17:17 Hypothyroidism; ca1 - Immunization history:: Client reports receiving the 2nd dose of the Covid vaccine, Client reports receiving the 1st dose of the Covid vaccine, Flu vaccine is not up to date. - Social history:: Smoking status: Patient denies any tobacco usage or history of. ROS: 18:06 Constitutional: Negative for fever, chills, and weight loss, Cardiovascular: Negative pm1 for chest pain, palpitations, and edema, Respiratory: Negative for shortness of breath, cough, wheezing, and pleuritic chest pain. 18:06 Back: Negative for injury and pain, : Negative for injury, bleeding, discharge, and swelling, MS/Extremity: Negative for injury and deformity, Skin: Negative for injury, rash, and discoloration, Neuro: Negative for headache, weakness, numbness, tingling, and seizure. 18:06 Abdomen/GI: Positive for abdominal pain, nausea, of the epigastric area, Negative for vomiting, diarrhea, constipation. 18:06 All other systems are negative. Exam: 18:06 Constitutional: This is a well developed, well nourished patient who is awake, alert, pm1 and in no acute distress. Head/Face: Normocephalic, atraumatic. 18:06 Chest/axilla: Normal chest wall appearance and motion. Nontender with no deformity. No lesions are appreciated. 18:06 Back: No spinal tenderness. No costovertebral tenderness. Full range of motion. Skin: Warm, dry with normal turgor. Normal color with no rashes, no lesions, and no evidence of cellulitis. MS/ Extremity: Pulses equal, no cyanosis. Neurovascular intact. Full, normal range of motion. 18:06 Eyes: Exam is negative for acute changes, Periorbital structures: appear normal, Extraocular movements: intact throughout, Conjunctiva: no acute changes, no injection, Sclera: no acute changes, icterus, is not appreciated. 18:06 ENT: Mouth: Lips: normal, Oral mucosa: normal, pink and intact, moist. 18:06 Cardiovascular: Exam negative for Rate: normal, Rhythm: regular, Pulses: no pulse deficits are appreciated, Edema: is not appreciated. 18:06 Respiratory: Exam negative for acute changes, respiratory distress, shortness of breath. 18:06 Abdomen/GI: Inspection: abdomen appears normal, Palpation: soft, in all quadrants, mild abdominal tenderness, in the epigastric area and right upper quadrant, rebound tenderness, is not appreciated. 18:06 Neuro: Orientation: is normal, Mentation: is normal, Motor: is normal, moves all fours, Sensation: is normal, no obvious gross deficits. Vital Signs: 17:15 BP 153 / 91; Pulse 85; Resp 16 S; Temp 97(TE); Pulse Ox 99% on R/A; Weight 108.86 kg ca1 (R); Height 5 ft. 11 in. (180.34 cm) (R); Pain 10/10; 19:47 BP 162 / 85; Pulse 80; Resp 17; Pulse Ox 98% ; Pain 10/10; rr5 21:00 BP 145 / 89; Pulse 79; Resp 15; Pulse Ox 99% ; Pain 5/10; rr5 22:00 BP 126 / 90; Pulse 86; Resp 17; Pulse Ox 99% ; rr5 23:20 BP 136 / 73; Pulse 74; Resp 19; Pulse Ox 98% ; rr5 09/25 00:20 BP 126 / 71; Pulse 80; Resp 14; Pulse Ox 98% ; rr5 01:20 BP 132 / 62; Pulse 79; Resp 16; Pulse Ox 97% ; rr5 02:00 BP 132 / 85; Pulse 70; Resp 16; Pulse Ox 98% ; rr5 09/24 17:15 Body Mass Index 33.47 (108.86 kg, 180.34 cm) ca1 MDM: 09/24 17:51 Patient medically screened. pm1 21:06 ED course: U/S not available, left at 1900 today. pm1 21:06 Data reviewed: vital signs. Data interpreted: Pulse oximetry: on room air is 98 %. pm1 Interpretation: normal. 21:06 Physician consultation: Guillermo Chand MD was called at 21:06, was contacted at 21:06, pm1 regarding consult, patient's condition, after a discussion of the case, a recommendation for transfer for higher level of care is made, due to no GI available. 21:14 Counseling: I had a detailed discussion with the patient and/or guardian regarding: the pm1 historical points, exam findings, and any diagnostic results supporting the discharge/admit diagnosis, lab results, radiology results, the need to transfer to another facility, [facility] does not immediately have the required specialist, No GI. 09/24 17:57 Order name: Basic Metabolic Panel pm1 09/24 17:57 Order name: CBC with Diff pm1 09/24 17:57 Order name: Hepatic Function pm1 09/24 17:57 Order name: Lipase pm1 09/24 17:58 Order name: Basic Metabolic Panel; Complete Time: 19:28 EDMS 09/24 17:58 Order name: Liver (Hepatic) Function; Complete Time: 19:28 EDMS 09/24 17:57 Order name: CT Abd/Pelvis - IV Contrast Only; Complete Time: 19:20 pm1 09/24 17:58 Order name: CBC with Automated Diff; Complete Time: 19:10 EDMS 09/24 17:58 Order name: Lipase; Complete Time: 19:28 EDMS 09/24 19:39 Order name: Urine Dipstick-Ancillary; Complete Time: 20:31 EDMS 09/25 00:29 Order name: SARS-COV-2 RT PCR; Complete Time: 00:31 EDMS 09/24 17:57 Order name: IV Saline Lock; Complete Time: 18:35 pm1 09/24 17:57 Order name: Labs collected and sent; Complete Time: 18:35 pm1 09/24 17:57 Order name: Urine Dipstick-Ancillary (obtain specimen); Complete Time: 19:47 pm1 09/24 21:13 Order name: NPO; Complete Time: 21:35 pm1 Administered Medications: 18:30 Drug: morphine 4 mg Route: IVP; Site: left antecubital; rb3 19:30 Follow up: Response: No adverse reaction; RASS: Alert and Calm (0) rr5 18:30 Drug: Zofran (Ondansetron) 4 mg Route: IVP; Site: left antecubital; rb3 19:30 Follow up: Response: No adverse reaction rr5 19:45 Drug: Dilaudid (HYDROmorphone) 1 mg {Note: RASS 0.} Route: IVP; Site: left antecubital; rr5 20:45 Follow up: Response: No adverse reaction; RASS: Alert and Calm (0) rr5 19:46 Drug: NS 0.9% 1000 ml Route: IV; Rate: 100 ml/hr; Site: left antecubital; rr5 21:30 Follow up: Response: No adverse reaction; IV Status: Order to discontinue infusion; IV rr5 Intake: 200ml 19:47 Drug: Zofran (Ondansetron) 4 mg Route: IVP; Site: left antecubital; rr5 20:40 Follow up: Response: No adverse reaction rr5 21:34 Dru.375 grams of (Zosyn (piperacillin-tazobactam) 3.375 grams, NS 0.9% 100 ml) rr5 Route: IVPB; Infused Over: 60 mins; Site: left antecubital; 22:30 Follow up: Response: No adverse reaction; IV Status: Completed infusion; IV Intake: rr5 100ml 21:34 Drug: NS 0.9% 1000 ml Route: IV; Rate: 125 ml/hr; Site: left antecubital; rr5 09/25 02:20 Follow up: Response: No adverse reaction; IV Status: Infusion continued upon transfer; rr5 IV Intake: 500ml 09/24 21:34 Drug: morphine 4 mg {Note: rass 0.} Route: IVP; Site: left antecubital; rr5 22:30 Follow up: Response: No adverse reaction; RASS: Alert and Calm (0) rr5 09/25 02:18 Drug: Zofran (Ondansetron) 4 mg Route: IVP; Site: left antecubital; rr5 02:23 Follow up: Response: Medication administered at discharge. rr5 02:21 Drug: Dilaudid (HYDROmorphone) 1 mg {Note: rass 0.} Route: IVP; Site: left antecubital; rr5 02:23 Follow up: Response: Medication administered at discharge. rr5 Disposition Summary: 09/24/20 21:19 Transfer Ordered Transfer Location: [facility] pm1 Reason: Higher level of care pm1 Condition: Stable pm1 Problem: new pm1 Symptoms: have improved pm1 Accepting Physician: (09/25/20 02:22) rr5 Diagnosis - Acute cholecystitis - Gallstone pancreatitis pm1 Forms: - Medication Reconciliation Form pm1 - SBAR form pm1 Signatures: Dispatcher [employer] [facility] Zeferino Woodward, SODA COLUMN OPERATOR SODA COLUMN OPERATOR pm1 Salbador Chase RN RN rr5 Diana Moreno RN RN ca1 Jill Guzman, RN RN rb3 Corrections: (The following items were deleted from the chart) 09/24 23:25 22:28 CORONAVIRUS+MR.LAB.BRZ ordered. [facility] 09/25 02:22 09/24 21:19 pm1 rr5
[2020-09-24] MEDS ORDERED: NA CHLORIDE 0.9% 100 ML ONE (21:43)
[2020-09-24] MEDS ORDERED: PIPERACIL/TAZO 3.375 GM VIAL IV ONE (21:43)
[2020-09-25] MEDS ORDERED: HYDROMORPHONE HCL 1 MG/ML INJ ONE (02:35)
[2020-09-25 02:38] VITALS: TEMP 97
[2020-09-25 02:39] VITALS: O2SAT 98
[2020-09-25] MEDS ORDERED: ONDANSETRON 4 MG/2 ML VIAL ONE (02:40)
[2020-09-25 02:41] VITALS: BP 136/73
== END 2020-09-25 02:22 | disposition short-term general hospital (02) ==
LOC: ER 16:53
DX: K81.0 Acute cholecystitis (principal); K85.10 Biliary acute pancreatitis without necrosis or infection; Z20.822 Contact with and (suspected) exposure to COVID-19
CPT/HCPCS: 96365; 96361; 85025; 80048; 36415; 82565; 80076; 81003; 83690; 74177; 96375; 99285; U0003; Q9967; J2543; J1170 ×2; J7030; J2405 ×3

== ENCOUNTER 2020-11-28 11:46 | Emergency (ER) | payer BC ==
--- OUTSIDE RECORDS SUMMARY | 2020-11-28 11:57 | XMS REPORT | Continuity of Care Document ---
:1965 Author Organization [facility] t Address [address] [place] [address] Care Team Providers Name Role Phone Chuy Parham Attending Clinician Payers Payer Name Policy Type Policy Number Effective Date Expiration Date S ource Problems This patient has no known problems. Allergies, Adverse Reactions, Alerts Allergy Allergy Status Severity Reaction(s) Onset Inactive Treating Comm ents Source Name Type Date Date Clinician No Known DA Active U 2018-03 [facility] Allergie -11 Clear s 00:00: Workman 00 [facility] Medications Ordered Filled Start Stop Current Ordering Indication Dosage Frequency Signature Comments Components Source Medication Medication Date Date Medication? Clinician (SIG) Name Name Meloxicam Meloxicam 2019- No Kathy 1-[address] 12-02 10-17 [facility] tablets as James es - 00:00: 00:00 needed for Memori a 00 :00 pain; take l with food Outpati ent Clinics Cyclobenzap Cyclobenzap 2020-0 2020- No Kathy 1-[address] [facility] rine HCl rine HCl 9-17 10-17 [facility] Diflucan Diflucan 2019- No Kathy [address] [facility] 7-29 07-31 [facility] Gabapentin Gabapentin Yes Kathy [address] [facility] Amoxicillin Amoxicillin Yes Kathy [address] [facility] -Pot -Pot [facility] Clavulanate [facility]ulanate [facility] Venlafaxine Venlafaxine Yes Kathy [address] [facility] HCl ER HCl ER Millender with food [facility] Calcium Calcium Yes Kathy 1 [...] Millender defined [facility] Loratadine Loratadine Yes Kathy TAKE ONE [facility] (1) [facility] - TABLET(S) Memoria BY MOUTH l ONCE A Outpati DAY. ent Clinics Immunizations Ordered Filled Immunization Date Status Comments [facility] e Immunization Name Name Flucelvax - single Flucelvax - single 2019-12-[address] [facility] - dose syringe dose syringe 00:00:00 [facility] Flucelvax Flucelvax 2017-12-[address] [facility] - 00[facility]00 [facility] Procedures This patient has no known procedures. Encounters Start End Encounter Admission Attending Care Care Encounter Source Date/Time Date/Time Type Type Clinicians Facility Department ID 2020-06-17 2020-06-17 Outpatient [facility] [id number] [facility] 2020-06-06 2020-06-06 Outpatient [facility] [id number] [facility] 2020-05-13 2020-05-13 Outpatient [facility] [id number] [facility] 2020-05-10 2020-05-[address] [facility] [id number] 16:33:00 19:19:00 Valerie Daniel [id number] [place] [id number] [place] [id number] 2020-05-10 2020-05-10 Outpatient [facility] [id number] [facility] 2020-05-06 2020-05-06 Outpatient [facility] [id number] [facility] 2020-04-29 2020-04-29 Outpatient [facility] [id number] [facility] 2020-04-26 2020-04-26 Outpatient [facility] [id number] [facility] 2019-12-03 2019-12-03 [facility] [id number] [facility] 15:40:00 15:40:00 [facility] Medicine Outpati ent Clinics 2019-08-17 2019-08-17 [facility] [id number] [facility] 12:09:00 12:09:00 [facility] Medicine Outpati ent Clinics 2019-08-12 2019-08-12 [facility] [id number] [facility] 13:40:00 13:40:00 t [facility] Medicine Medicine Outpati ent Clinics 2019-08-11 2019-08-11 [facility] [id number] 15:05:00 15:05:00 t [facility] Medicine Medicine Outpati ent Clinics 2019-08-11 2019-08-11 [facility] [id number] 10:58:00 10:58:00 t [facility] Medicine l Medicine Outpati ent Clinics 2019-07-29 2019-07-29 [facility] [id number] [address] 14:48:00 14:48:00 t [facility] Medicine l Medicine Outpati ent Clinics 2019-03-05 2019-03-05 [facility] [id number] [facility] 15:45:00 15:45:00 t [facility] Medicine l Medicine Outpati ent Clinics 2019-02-26 2019-02-26 [facility] [id number] [facility] 13:28:00 13:28:00 t [facility] Medicine Medicine Outpati ent Clinics 2019-02-24 2019-02-24 [facility] [id number] 16:00:00 16:00:00 t [facility] Medicine Medicine Outpati ent Clinics 2018-10-13 2018-10-13 [facility] [id number] 11:20:00 11:20:00 t [facility] Medicine Medicine Outpati ent Clinics 2018-09-09 2018-09-09 [facility] [id number] 15:40:00 15:40:00 t [facility] Medicine l Medicine Outpati ent Clinics 2018-05-21 2018-05-21 [facility] [id number] [facility] 15[facility]45:00 15:45:00 t [facility] Medicine l Medicine Outpati ent Clinics 2018-05-16 2018-05-16 [facility] [id number] 14[facility]53:00 14:53:00 t [facility] Medicine Outpati ent Clinics 2018-05-15 2018-05-15 [facility] [id number] 15:45:00 15:45:00 t [facility] Medicine Medicine Outpati ent Clinics 2018-03-26 2018-03-26 [facility] [id number] [facility] 14:18:00 14:18:00 t [facility] Medicine Outpati ent Clinics 2018-03-21 2018-03-21 [facility] [id number] 16:00:00 16:00:00 [facility] Medicine Outpati ent Clinics 2017-12-17 2017-12-17 [facility] [id number] 08:30:00 08:30:00 t [facility] Medicine Medicine Outpati ent Clinics 2017-09-25 2017-09-25 [facility] [id number] 14:52:00 14:52:00 t [facility] Medicine Outpati ent Clinics 2017-09-25 2017-09-25 [facility] [id number] [facility] 13:45:00 13:45:00 t [facility] Medicine Medicine Outpati ent Clinics 2017-08-09 2017-08-09 [facility] [id number] 10:15:00 10:15:00 t [facility] Medicine Medicine Outpati ent Clinics 2017-08-05 2017-08-05 [facility] [id number] [facility] 09:34:00 09:34:00 t [facility] Medicine Outpati ent Clinics Results Test [...] measure: (test code = GFR) mL/min/1.7 3 [id number] Range:Healthy A dults >90 mL/min/1.73 m2 For Chronic Kidney Disease: Stage II Mi ld Decrease in GFR 60-9 0 Stage III Moderate Decrease in GFR 30-59 Stage IV Severe Decrease in GFR 15-29 Stage V Kidney Failure <15 CREATININE (test code = CREAT) 1.23 mg/dL 0.55-1.30 N CALCIUM (test code = CA) 8.5 mg/dL 8.2-10.1 N HGB [id number] 06:07:00 Test Item Value Reference Range Interpretation Comments HEMOGLOBIN (test code = HGB) 11.6 g/dL 12-16 L HEMATOCRIT (test code = HCT) 36.4 % 37-47 L PROTHROMBIN [id number] 14:21:00 Test Item Value Reference Range Interpretation [...] BLOOD, PT every other day NTHROMBOPLASTIN TIME [id number] 14:21:00 Test Item Value Reference Range Interpretation Comments PTT ACTIVATED (test 42.3 secs 24.9-37.0 HH VERIFIED BY REPEAT code = APTT) ANALYSIS.CRITIC AL VALUE CALLED TO MYRA WITH ' OFFICEREAD BACK & CONFIRMED? YESB Y F.LAB.AEG 01/26 1420 IS PATIENT ON ANTICOAGULANTS ? MDas Lab been notified if Patient is on Heparin Drip? NOIf Yes, orderCBC, OCCULT BLOOD, PT every other day NCOMPREHENSIVE METABOLIC [id number] 13:08:00 Test Item Value Reference Range Interpretation [...] RATE (test code = GFR) mL/mi n/1.73 [id number] Range:Healthy Adults >90 mL/min/1.73 m2 For Chronic [...] TOTAL (test code = ALKP) CBC W/AUTO [id number] 12:29:00 Test Item Value Reference Range Interpretation [...]
[2020-11-28 13:57] LABS: SARS-COV-2 RT PCR NEGATIVE (NEGATIVE)
--- NOTE | 2020-11-28 14:08 | EDPHYS ---
Physician Documentation [facility] Name: Princess Deras Age: 55 yrs Sex: Female : 1965 Arrival Date: 11/28/2020 Time: 11:48 Bed Waiting Private MD: ED Physician Osman Lopez HPI: 11/28 14:16 This 55 yrs old Female presents to ER via Ambulatory with complaints of r/o kb covid. 14:16 The patient presents to the emergency department with nausea, vomiting, diarrhea. kb Onset: The symptoms/episode began/occurred last night. Possible causes: unknown. The symptoms are aggravated by nothing. The symptoms are alleviated by nothing. Associated signs and symptoms: Pertinent positives: diarrhea, fever, nausea, vomiting. Severity of symptoms: At their worst the symptoms were moderate in the emergency department the symptoms are unchanged. The patient has experienced a previous episode. The patient has not recently seen a physician. Pt reports n/v/d, fever, chills and headache that started last night. has similar symptoms. States they had covid in April and the symptoms were exactly the same so they came in to be tested. Historical: - Allergies: 12:24 No Known Allergies; kg - Home Meds: 12:24 levothyroxine oral [Active]; Xarelto Oral [Active]; kg - PMHx: 12:24 Hypothyroidism; Depression; kg - PSHx: 12:24 Knee replacement; Left kidney donated; kg - Immunization history:: Adult Immunizations not up to date, Client reports receiving the 2nd dose of the Covid vaccine, Date received: May 2020 Client reports receiving the 1st dose of the Covid vaccine, May 2020. - Social history:: Smoking status: Patient denies any tobacco usage or history of. ROS: 14:16 Respiratory: Negative for shortness of breath, cough, wheezing, and pleuritic chest kb pain. 14:16 Constitutional: Positive for chills, fever. 14:16 Abdomen/GI: Positive for nausea, vomiting, and diarrhea, Negative for abdominal pain. 14:16 Neuro: Positive for headache. 14:16 All other systems are negative. Exam: 14:16 Constitutional: This is a well developed, well nourished patient who is awake, alert, kb and in no acute distress. Head/Face: Normocephalic, atraumatic. ENT: Moist Mucous membranes Cardiovascular: Regular rate and rhythm with a normal S1 and S2. No gallops, murmurs, or rubs. No pulse deficits. Respiratory: Respirations even and unlabored. No increased work of breathing, no retractions or nasal flaring. Abdomen/GI: Soft, non-tender. No distention Skin: Warm, dry with normal turgor. Normal color. MS/ Extremity: Pulses equal, no cyanosis. Neurovascular intact. Full, normal range of motion. Neuro: Awake and alert, GCS 15, oriented to person, place, time, and situation. Moves all extremities. Normal gait. Psych: Awake, alert, with orientation to person, place and time. Behavior, mood, and affect are within normal limits. Vital Signs: 12:21 BP 127 / 89; Pulse 84; Resp 18; Temp 98.0(O); Pulse Ox 99% on R/A; Weight 111.13 kg kg (R); Height 5 ft. 11 in. (180.34 cm) (R); Pain 5/10; 12:21 Body Mass Index 34.17 (111.13 kg, 180.34 cm) kg MDM: 12:02 Patient medically screened. kb 14:16 Data reviewed: vital signs, nurses notes. Data interpreted: Pulse oximetry: on room air kb is 99 %. Interpretation: normal. Counseling: I had a detailed discussion with the patient and/or guardian regarding: the historical points, exam findings, and any diagnostic results supporting the discharge/admit diagnosis, lab results, the need for outpatient follow up, a family practitioner, to return to the emergency department if symptoms worsen or persist or if there are any questions or concerns that arise at home. 11/28 12:03 Order name: Flu kb 11/28 13:57 Order name: COVID-19/FLU A+B; Complete Time: 13:59 EDMS Administered Medications: No medications were administered Disposition: 15:21 Co-signature as Attending Physician, Osman Lopez MD I agree with the assessment and rn plan of care. Attestation: The patient's history, exam findings, diagnostics, and a summary of any interventions or procedures was reviewed in detail with Leela SIEGEL. Disposition Summary: 11/28/20 14:08 Discharge Ordered Location: Home kb Condition: Stable kb Diagnosis - Nausea with vomiting, unspecified kb - Diarrhea, unspecified kb Followup: kb - With: Emergency Department - When: As needed - Reason: Worsening of condition Followup: kb - With: Private Physician - When: 2 - 3 days - Reason: Recheck today's complaints, Continuance of care, Re-evaluation by your physician Discharge Instructions: - Discharge Summary Sheet kb - Food Choices to Help Relieve Diarrhea, Adult kb - Viral Gastroenteritis, Adult, [id number] kb Forms: - Medication Reconciliation Form kb - Thank You Letter kb - Antibiotic Education kb - Prescription Opioid Use kb Prescriptions: - Zofran 4 mg Oral Tablet - take 1 tablet by ORAL route every 6 months As needed; 20 tablet; Refills: 0, kb Product Selection Permitted Signatures: Dispatcher [employer] EDMS Leela Maldonado, DASHAWN-C MANAGER FINANCIAL REPORTING-Osman Correa MD MD rn Graham, Kristen, RN RN kg Corrections: (The following items were deleted from the chart) 13:04 12:04 CORONAVIRUS+MR.LAB.BRZ ordered. EDMS EDMS 13:05 12:04 Influenza Screen (A ordered. EDMS EDMS
--- NOTE | 2020-11-28 14:08 | ER ---
Nurse's Notes [facility] Name: Princess Deras Age: 55 yrs Sex: Female : 1965 Arrival Date: 11/28/2020 Time: 11:48 Bed Waiting Private MD: Diagnosis: Nausea with vomiting, unspecified;Diarrhea, unspecified Presentation: 11/28 12:21 Chief complaint: Patient states: N/V/D, Fever, Cough, ARROYO starting last night. kg Coronavirus screen: Vaccine status: Patient reports receiving the 2nd dose of the covid vaccine. Date May 2020 Patient reports receiving the 1st dose of the Covid vaccine. Date May 2020. Ebola Screen: Patient negative for fever greater than or equal to 101.5 degrees Fahrenheit, and additional compatible Ebola Virus Disease symptoms Patient denies exposure to infectious person. Patient denies travel to an Ebola-affected area in the 21 days before illness onset. Initial Sepsis Screen: Does the patient meet any 2 criteria? No. Patient's initial sepsis screen is negative. Does the patient have a suspected source of infection? No. Patient's initial sepsis screen is negative. Risk Assessment: Do you want to hurt yourself or someone else? Patient reports no desire to harm self or others. Onset of symptoms was November 27, 2020. 12:21 Method Of Arrival: Ambulatory kg 12:21 Acuity: PIYUSH 4 kg Triage Assessment: 12:26 General: Appears in no apparent distress. Behavior is calm, cooperative, appropriate kg for age, quiet. Pain: Complains of pain in Head, Generalized. GI: Reports diarrhea, nausea, vomiting. Historical: - Allergies: 12:24 No Known Allergies; kg - Home Meds: 12:24 levothyroxine oral [Active]; Xarelto Oral [Active]; kg - PMHx: 12:24 Hypothyroidism; Depression; kg - PSHx: 12:24 Knee replacement; Left kidney donated; kg - Immunization history:: Adult Immunizations not up to date, Client reports receiving the 2nd dose of the Covid vaccine, Date received: May 2020 Client reports receiving the 1st dose of the Covid vaccine, May 2020. - Social history:: Smoking status: Patient denies any tobacco usage or history of. Screenin:25 Abuse screen: Denies threats or abuse. Denies injuries from another. Nutritional kg screening: No deficits noted. Tuberculosis screening: No symptoms or risk factors identified. Fall Risk None identified. Vital Signs: 12:21 BP 127 / 89; Pulse 84; Resp 18; Temp 98.0(O); Pulse Ox 99% on R/A; Weight 111.13 kg kg (R); Height 5 ft. 11 in. (180.34 cm) (R); Pain 5/10; 12:21 Body Mass Index 34.17 (111.13 kg, 180.34 cm) kg ED Course: 11:48 Patient arrived in ED. as 11:49 [facility]don[facility]C [facility] kb 11:49 Osman Lopez MD is Attending Physician. kb 12:24 Triage completed. kg 12:25 Patient has correct armband on for positive identification. kg 12:25 No provider procedures requiring assistance completed. kg 12:26 Arm band placed on. kg Administered Medications: No medications were administered Outcome: 14:08 Discharge ordered by MD. kb 14:15 Patient left the ED. kb Signatures: Leela Maldonado FNP-C FNP-Tatiana Jennings Kristen, RN RN kg
[2020-11-28 14:45] VITALS: BP 127/89; TEMP 98; O2SAT 99
== END 2020-11-28 14:15 | disposition home or self-care (01) ==
LOC: ER 11:46
DX: R19.7 Diarrhea, unspecified (principal); Z20.822 Contact with and (suspected) exposure to COVID-19; E03.9 Hypothyroidism, unspecified; F32.9 Major depressive disorder, single episode, unspecified; Z79.01 Long term (current) use of anticoagulants
CPT/HCPCS: 0240U; 99281

== ENCOUNTER 2021-02-20 14:12 | Emergency (ER) | payer BC ==
--- OUTSIDE RECORDS SUMMARY | 2021-02-20 14:25 | XMS REPORT | Continuity of Care Document ---
:1965 Author Organization [facility] t Address [address] [place] [address] Care Team Providers Name Role Phone DobsonTita fischer Primary Care Physician MIREYA Attending Clinician Unavailable Marina MEYER Attending Clinician Unavailable Marina Titus Attending Clinician Chuy Parham Attending Clinician hCuy FINLEY Attending Clinician Unavailable LUIS Admitting Clinician Unavailable Payers Payer Name Policy Type Policy Number Effective Date Expiration Date Dustin miller [facility] [id number] 2016 00:00:00 [facility] Problems Condition Condition Condition Status Onset Resolution Last Treating Co mments Source Name Details Category Date Date Treatment Clinician Date Pancreatit Pancreatit Disease Active U nivers is, is, 7-11 ity of [place] Obesity Obesity Disease Active Univers (BMI (BMI 7-11 ity of 30-39.9) 30-39.9) 00:00: [place] [address] Medical Branch No known No known Disease Unive rs active active ity of problems problems [facility] Allergies, Adverse Reactions, Alerts Allergy Allergy Status Severity Reaction(s) Onset Inactive Treating Comm ents Source Name Type Date Date Clinician No Known DA Active U 2018-03 [facility] Allergie -11 Clear s 00:00: [address] NO KNOWN Drug Active Univers ALLERGIE Class ity of S [facility] Social History Social Habit Start Date Stop Date Quantity Comments Source Exposure to Not sure [facility] SARS-CoV-2 [facility] (event) [place] Sex Assigned At Universit y of [facility] Alcohol intake 2020-12-23 2020-12-23 Lifetime University of 00:00:00 00:00:00 non-drinker [facility] (finding) [place] Tobacco use and 2020-09-25 2020-09-25 Never used Universit y of exposure 00:00:00 00:00:00 [facility] Smoking Status Start Date Stop Date Source Never smoker [facility] Unknown if ever smoked [facility] Medications Ordered Filled Start Stop Current Ordering Indication Dosage Frequency Signature Comments Components Source Medication Medication Date Date Medication? Clinician (SIG) Name Name methylPREDN 2020-03- No [id number] 80mg Univers ISolone 0-08 -08 ity of acetate 16:15: 15:17 [place] (DEPO-MEDRO 00 :00 Medical L) Branch injection 80 mg methylPREDN 2020-03- No [id number] 80mg 80 mg, Univers ISolone 0-08 -08 Intramuscu ity o f acetate 16:15: 15:17 lar, ONCE, [place] (DEPO-MEDRO 00 :00 1 dose, On Me dical L) Fri Branch injection 12/23/20 at 80 mg 1115, Routine methylPREDN 2020-03- No [id number] 80mg Univers ISolone 0-08 10-08 ity of acetate 16:15: 15:17 [place] (DEPO-MEDRO 00 :00 Medical L) Branch injection 80 mg methylPREDN 2020-03- No [id number] 80mg 80 mg, Univers ISolone 0-08 08 Intramuscu ity o f acetate 16:15: 15:17 lar, ONCE, [place] (DEPO-MEDRO 00 :00 1 dose, On Me dical L) Fri Branch injection 12/23/20 at 80 mg 1115, Routine triamcinolo 2020-03 Yes [id number] Apply to Univers ne 0-08 area(s) 2 ity of acetonide 00:00: (two) [place] 0.1 % cream 00 times Medical daily. Branch Apply thin layer for shortest duration possible (<1 week) triamcinolo 2020-03 Yes [id number] Apply to Univers ne 0-08 area(s) 2 ity of acetonide 00:00: (two) [place] 0.1 % cream 00 times Medical daily. Branch Apply thin layer for shortest duration possible (<1 week) venlafaxine Yes [id number] TAKE ONE Univers XR 75 mg 24 9-22 (1) ity of hr capsule 00:00: [place](S) [place] 00 BY MOUTH Medical ONCE A DAY Branch WITH FOOD. loratadine Yes [id number] 10mg Take 1 Univers 10 mg 9-22 tablet by ity of tablet 00:00: mouth [place] 00 daily. Medical Branch levothyroxi Yes [id number] 50ug Take 1 Univers ne 50 mcg 9-22 tablet by ity o f tablet 00:00: mouth [place] 00 every Medical morning. Branch venlafaxine Yes [id number] TAKE ONE Univers XR 75 mg 24 9-22 (1) ity of hr capsule 00:00: CAPSULE(S) [place] 00 BY MOUTH Medical ONCE A DAY Branch WITH FOOD. loratadine Yes [id number] 10mg Take 1 Univers 10 mg 9-22 tablet by ity of tablet 00:00: mouth [place] 00 daily. Medical Branch levothyroxi Yes [id number] 50ug Take 1 Univers ne 50 mcg 9-22 tablet by ity o f tablet 00:00: mouth [place] 00 every Medical morning. Branch diazePAM No 5mg 5 mg, Univers (VALIUM) 05-11 02-23 Oral, ity of tablet 5 mg 00:15: 23:24 [place]CE[place] 1 [place] dose, [facility] 05/10/20 at Branch 1815, CARLI ketorolac 2020- No 15mg 15 mg, Unive rs (TORADOL) 05-11-23 Slow IV ity of injection 00:15: 23:24 Push, [place] 15 mg 00 :00 ONCE, 1 Medical dose, [facility] 05/10/20 at 1815, CARLI
Fa culty member approving Restricted medication : COLE FINLEY diazePAM Yes [id number] 5mg Take 1 Un marissa (VALIUM) 5 2-23 tablet by ity of mg tablet 00:00: mouth 3 [place] (three) Medical times [place] daily as needed for Muscle Spasms. naproxen Yes [id number] 500mg Take 1 U nivers 500 mg 2-23 tablet by ity of tablet 00:00: mouth 2 [place] [address] (two) Medical times Branch daily with meals. tiZANidine Yes [id number] 4mg Take 1 Univers 4 mg 2-23 capsule by ity of capsule 00:00: mouth 3 [place] [address] (three) Medical times Branch daily as needed for Muscle Spasms. Meloxicam Meloxicam 2019- No Kathy 1-[address] 9-17 10-17 [place] tablets as James es - 00:00: 00:00 needed for Memori a 00 :00 pain; [facility] l [facility] Cyclobenzap Cyclobenzap 2019- No Kathy 1-[address] [facility] rine HCl rine HCl 9-17 10-17 [place] tablets as [facility] Diflucan Diflucan 2018- No Kathy [address] [facility] 7-29 07-31 [facility] Amoxicillin Amoxicillin Yes Kathy 1 [...] l ONCE A Outpati DAY. ent Clinics Gabapentin Gabapentin Yes Kathy [address] [facility] Immunizations Ordered Filled Immunization Date Status Comments [facility] e Immunization Name Name SARS-COV-2 COVID-19 2020-06-13 Completed Unive rsity of MODERNA VACCINE 00:00:00 [facility] SARS-COV-2 COVID-19 2020-06-13 Completed Unive rsity of MODERNA VACCINE 00:00:00 [facility] SARS-COV-2 COVID-19 2020-05-16 Completed Unive rsity of MODERNA VACCINE 00:00:00 [facility] SARS-COV-2 COVID-19 2020-05-16 Completed Unive rsity of MODERNA VACCINE 00:00:00 [facility] Influenza Virus 2020-04-18 Completed Universit y of Vaccine Quad IM 00:00:00 [facility] Multi-dose 6+ MO Branch Influenza Virus 2020-04-18 Completed Universit y of Vaccine Quad IM 00:00:00 [facility] Multi-dose 6+ MO Branch Flucelvax - single Flucelvax - single 2019-12-[address] [facility] - dose syringe dose syringe 00:00:00 [facility] Flucelvax Flucelvax 2017-12-[address] [facility] - 00:00:00 [facility] Vital Signs Vital Name Observation Time Observation Value Comments Source Systolic blood 2020-12-23 15:02:00 138 mm[Hg] Univer sity of pressure [facility] Diastolic blood 2020-12-23 15:02:00 84 mm[Hg] Unive rsity of [facility] Heart rate 2020-12-23 14:24:00 66 /min Universi ty [facility] [place] [facility] Body temperature 2020-12-23 14:24:00 36.72 Starla Univ ersity of [facility] Body height 2020-12-23 14:24:00 177.8 cm Universi ty [facility] [place] [facility] Body weight 2020-12-23 14:24:00 104.781 kg [facility] BMI 2020-12-23 14:24:00 33.15 kg/m2 [facility] Oxygen saturation in 2020-12-23 14:24:00 99 /min University of Arterial blood by [facility] Pulse oximetry Branch Systolic blood 2020-05-11 00:30:00 162 mm[Hg] Univer sity of [facility] Diastolic blood 2020-05-11 00:30:00 87 mm[Hg] Unive rsity of [facility] Heart rate 2020-05-11 00:30:00 81 /min Universi [facility] Respiratory rate 2020-05-11 00:30:00 16 /min [facility] Oxygen saturation in 2020-05-11 00:30:00 95 /min University of Arterial blood by [facility] Pulse oximetry Branch Body temperature 2020-05-10 22:31:00 36.89 Starla Univ ersity of [facility] Body weight 2020-05-10 22:31:00 111.131 kg Universi ty [facility] [place] [facility] Systolic blood 2020-05-11 00:30:00 162 mm[Hg] Univer sity of [facility] Diastolic blood 2020-05-11 00:30:00 87 mm[Hg] Unive rsity of [facility] Heart rate 2020-05-11 00:30:00 81 /min [facility] Respiratory rate 2020-05-11 00:30:00 16 /min [facility] Oxygen saturation in 2020-05-11 00:30:00 95 /min [facility] Arterial blood by [facility] Pulse oximetry [place] Body temperature 2020-05-10 22:31:00 36.89 Starla [facility] Body weight 2020-05-10 22:31:00 111.131 kg [facility] Procedures Procedure Date / Time Performed Performing Clinician Sourlara e XR CHEST 1 VW 2020-05-10 23:26:06 Cole Finley [facility] TROPONIN I 2020-05-10 23:23:00 Cole Finley [facility] COMP. METABOLIC PANEL 2020-05-10 23:23:00 Cole Finley [facility] ([id number]) [facility] CBC WITH DIFF 2020-05-10 23:23:00 Cole Finley [facility] N-TERMINAL PRO-BNP 2020-05-10 23:23:00 Cole Finley [facility] Encounters Start End Encounter Admission Attending Care Care Encounter Source Date/Time Date/Time Type Type Clinicians Facility Department ID 2020-09-25 [id number] Univers 03:52:00 CLAUDIA [facility] 2021-06-07 2021-06-07 [id number] Univers 16:00:00 16:00:00 ARIANA [id number] [facility] 2020-12-23 2020-12-23 [facility] [id number] Univers 09:20:50 10:17:26 Visit Ariana Hanson [id number] i ty of [place] [id number] [place] as Osmani?Blea [id number] Ga derrek [address] Medical Office Building 2020-12-23 2020-12-23 [facility] [id number] Univers 09:30:00 09:30:00 ARAINA [id number] [facility] 2020-12-23 2020-12-23 [facility] [id number] Univers 09:30:00 09:30:00 ARIANA [facility] 2020-12-07 2020-12-07 Outpatient R [facility] [id number] Univers 11:30:00 11:30:00 [id number] [facility] 2020-12-07 2020-12-07 [facility] [id number] Univers 10:00:00 10:00:00 ARIANA hernandez [facility] 2020-06-17 2020-06-17 Outpatient [facility] [id number] [facility] 2020-06-06 2020-06-06 Outpatient [facility]ML[facility] [id number] [facility] 2020-05-13 2020-05-13 Outpatient [facility]LMLC [facility] [id number] [facility] 2020-05-10 2020-05-10 Emergency [facility] [id number] Univers 16:33:00 19:19:00 Cole R Marsing [id number] i ty of [place] [id number] [facility] [id number] [place] [address] Branch 2020-05-10 2020-05-10 Emergency [facility] [id number] 16:33:00 19:19:00 Cole R Marsing [id number] [place] [id number] [place] [address] [id number] [facility] 2020-05-10 2020-05-10 Emergency X [facility] ERT [id number] Univers 16:33:00 16:33:00 COLE itgarrett [facility] 2020-05-10 2020-05-10 Outpatient STLMLC [facility] [id number] [facility] 2020-05-06 2020-05-06 Outpatient [facility] [id number] [facility] 2020-04-29 2020-04-29 [facility] [id number] [facility] 2020-04-26 2020-04-26 Outpatient [facility] [id number] [facility] 2019-12-03 2019-12-03 [facility] [id number] 15:40:00 15:40:00 [facility] Medicine l Medicine Outpati ent Clinics 2019-08-17 2019-08-17 [facility] [id number] 12:09:00 12:09:00 t [facility] Medicine Outpati ent Clinics 2019-08-12 2019-08-12 [facility] [id number] 13:40:00 13:40:00 t [facility] l Medicine Outpati ent Clinics 2019-08-11 2019-08-11 [facility] [id number] 15:05:00 15:05:00 t [facility] Medicine l Medicine Outpati ent Clinics 2019-08-11 2019-08-11 [facility] [id number] 10:58:00 10:58:00 [facility] Medicine Medicine Outpati ent Clinics 2019-07-29 2019-07-29 [facility] [id number] 14:48:00 14:48:00 [facility] Medicine Outpati ent Clinics 2019-03-05 2019-03-05 [facility] [id number] 15:45:00 15:45:00 t [facility] Medicine Outpati ent Clinics 2019-02-26 2019-02-26 [facility] [id number] 13:28:00 13:28:00 t [facility] Medicine Outpati ent Clinics 2019-02-24 2019-02-24 [facility] [id number] 16:00:00 16:00:00 t [facility] Medicine Outpati ent Clinics 2018-10-13 2018-10-13 [facility] [id number] 11:20:00 11:20:00 t [facility] Medicine Outpati ent Clinics 2018-09-09 2018-09-09 [facility] [id number] 15:40:00 15:40:00 t [facility] Medicine Outpati ent Clinics 2018-05-21 2018-05-21 [facility] [id number] 15:45:00 15:45:00 t [facility] Medicine Outpati ent Clinics 2018-05-16 2018-05-16 [facility] [id number] 14:53:00 14:53:00 t [facility] Medicine Outpati ent Clinics 2018-05-15 2018-05-15 [facility] [id number] 15:45:00 15:45:00 t [facility] Medicine Outpati ent Clinics 2018-03-26 2018-03-26 [facility] [id number] 14:18:00 14:18:00 t [facility] Medicine Outpati ent Clinics 2018-03-21 2018-03-21 [facility] [id number] 16:00:00 16:00:00 [facility] Medicine Outpati ent Clinics 2017-12-17 2017-12-17 [facility] [id number] 08:30:00 08:30:00 [facility] 2017-09-25 2017-09-25 Outpatient Rosa Leet [id number] 14:52:00 14:52:00 [facility] 2017-09-25 2017-09-25 [place] [facility] [id number] 13:45:00 13:45:00 [facility] 2017-08-09 2017-08-09 [place] [facility] [id number] 10:15:00 10:15:00 [facility] 2017-08-05 2017-08-05 [place] [facility] [id number] 09:34:00 09:34:00 [facility] Results Test Description Test Time Test Comments Results Result Comments Source TROPONIN I 2020-05-11 00:01:00 Test Item Value Reference Range Interpretation Comme nts TROPONIN I (test code = 0.002 ng/mL See_Comment [Au tomated message] The [id number]) system which ge nerated this result tra nsmitted reference range : <=0.034. The reference r gamaliel was not used to int erpret this result as normal/abnormal . ALFA (test code = ALFA) Equal or Less than 0.034 ng/ml---Normal ?Note: Cardiac troponin begins to rise 3-4 hours after the onset of ischemia. Repeat in 4-6 hours if the sample was drawn within 3-4 hours of the onset of the symptom and found normal. Between 0.035 and 0.120 ng/mL--- Borderline. Questionable myocardial injury or necrosis ? ?Note: Serial measurement may be necessary to confirm or exclude the diagnosis of myocardial injury or necrosis; Clinical correlation (symptoms, EKGs, imaging studies, and others) required; Repeat in 4-6 hours if clinically indicated. ? Equal or Higher than 0.121 ng/mL---Abnormal. Myocardial Injury or Necrosis Likely ? Biotin has been reported to cause a negative bias, interpret results relative to patient's use of biotin. ? Lab Interpretation (test Normal code = 14477-5) [id number] 23:58:00 Test Item Value Reference Range Interpretation Comments NT-proBNP (test code 150 pg/mL See_Comment H [Autom ated = 5846780350) message] The system which generated this result transmitted reference range : <=125. The reference range was not used to interpret this result as normal/abnormal . ALFA (test code = ALFA) Biotin has been reported to cause a negative bias, interpret results relative to patient's use of biotin. Lab Interpretation Abnormal (test code = 09211-7) [facility] ([id number])2020-05-10 23:51:00 Test Item Value Reference Range Interpretation Comments NA (test code = 136 mmol/L 135-145 5375033578) K (test code = 3.8 mmol/L 3.5-5 9910989158) CL (test code = 101 mmol/L 98-108 7395357120) CO2 TOTAL (test code = 30 mmol/L 23-31 6405256924) AGAP (test code = 2-16 8625480624) BUN (test code = 27 mg/dL 7-23 H 4144959761) GLUCOSE (test code = 85 mg/dL 70-110 4761607648) CREATININE (test code = 1.10 mg/dL 0.5-1.04 H 9965515715) TOTAL BILI (test code = 0.4 mg/dL 0.1-1.4 3774665457) CALCIUM (test code = 8.6 mg/dL 8.6-10.6 4317202730) T PROTEIN (test code = 7.2 g/dL 6.3-8.2 8494740053) ALBUMIN (test code = 4.2 g/dL 3.5-5 6689672098) ALK PHOS (test code = 120 U/L 34-122 6161770819) ALTv (test code = 29 U/L 5-35 1742-6) AST(SGOT) (test code = 28 U/L 13-40 7665929688) eGFR Calculation mL/min/1.73m2 (Non-) (test code = 0759087741) eGFR Calculation mL/min/1.73m2 () (test code = 2759733114) ALFA (test code = ALFA) Association of Glomerular Filtration Rate (GFR) and Staging of Kidney Disease* + --+ --+ ------+| GFR (mL/min/1.73 m2) ?| With Kidney Damage ?| ?Without Kidney Damage+ --------+ --------+ +| ?>90 ?| ?Stage one ?| ? Normal ?+ ---+ ---+ -------+| ?60-89 ?| ?Stage two ?| ? Decreased GFR ? + --+ --+ ------+| ?30-59 ?| ?Stage three ?| ? Stage three ? + --+ --+ ------+| ?15-29 ?| ?Stage four ? | ? Stage four ?+ ---+ ---+ -------+| ?<15 (or dialysis) ? ?| ?Stage five ? | ? Stage five ?+ ---+ ---+ -------+ *Each stage assumes the associated GFR level has been in effect for at least three months. ?Stages 1 to 5, with or without kidney disease, indicate chronic kidney disease. Notes: Determination of stages one and two (with eGFR >59mL/min/1.73 m2) requires estimation of kidney damage for at least three months as defined by structural or functional abnormalities of the kidney, manifested by either:Pathological abnormalities or Markers of kidney damage (including abnormalities in the composition of the blood or urine or abnormalities in imaging tests). Lab Interpretation Abnormal (test code = 05877-3) [facility] 1 [id number] 23:47:10 No acute cardiopulmonary abnormality. Preliminary Report Dictated by Resident: Andrez Cramer MD., have reviewed this study and agree with the abovereport.EXAM: XR CHEST 1 VW HISTORY: left neck and left arm pain, sob, resolving covid COMPARISON: None FINDINGS: The lungs are clear.No pneumothorax or pleural effusion. Thecardiomediastinal silhouette is normal in size. ?No acute osseousabnormalities. Nmmb, Radiant Results Inft User - 05/10/2020 5:48 PM CSTEXAM: XR CHEST 1 VWHISTORY: left neck and left arm pain, sob, resolving covid COMPARISON: NoneFINDINGS:The lungs are clear. No pneumothorax or pleural effusion. Thecardiomediastinal silhouette is normal in size. No acute osseo usabnormalities.IMPRESSIONNo acute cardiopulmonary abnormality.Preliminary Report Dictated by Resident: Andrez Ruano MD., have reviewed this study and agree with the abovereport.[facility] WITH [id number] 23:33:00 Test Item Value Reference Range Interpretation Comments WBC (test code = See_Comment [Automated 8890-2) message] The sy stem which generated this result transmitted reference range : 4.30 - 11.10 10*3/?L. The reference range was not used to interpret this result as normal/abnormal . RBC (test code = See_Comment [Automated 019-8) message] The sy stem which generated this result transmitted reference range : 3.93 - 5.25 10*6/?L. The reference range was not used to interpret this result as normal/abnormal . HGB (test code = 12.3 g/dL 11.6-15 718-7) HCT (test code = 38.7 % 35.7-45.2 4544-3) MCV (test code = 84.9 fL 80.6-95.5 787-2) MCH (test code = 27.0 pg 25.9-32.8 785-6) MCHC (test code = 31.8 g/dL 31.6-35.1 786-4) RDW-SD (test code = 41.4 fL 39-49.9 10964-4) RDW-CV (test code = 13.3 % 12-15.5 788-0) PLT (test code = See_Comment [Automated 777-3) message] The sy stem which generated this result transmitted reference range : 166 - 358 10*3/ ?L. The reference r gamaliel was not used to interpret this result as normal/abnormal . MPV (test code = 11.5 fL 9.5-12.9 82390-9) NRBC/100 WBC (test See_Comment [Automat ed code = 2698578936) message] The system which generated this result transmitted reference range : 0.0 - 10.0 /100 WBCs. The refer ence range was not u sed to interpret th is result as normal/abnormal . NRBC x10^3 (test code <0.01 See_Comment [Auto mated = 5610065287) message] The s ystem which generated this result transmitted reference range : 10*3/?L. The reference range was not used to interpret this result as normal/abnormal . GRAN MAT (NEUT) % 64.5 % (test code = 770-8) IMM GRAN % (test code 0.30 % = 9806543471) LYMPH % (test code = 21.9 % 736-9) MONO % (test code = 10.5 % 5905-5) EOS % (test code = 2.3 % 713-8) BASO % (test code = 0.5 % 706-2) GRAN MAT x10^3(ANC) 6.89 10*3/uL 1.88-7.09 (test code = 9837071318) IMM GRAN x10^3 (test 0.03 10*3/uL 0-0.06 code = 6913834156) LYMPH x10^3 (test code 2.33 10*3/uL 1.32-3.29 = 731-0) MONO x10^3 (test code 1.12 10*3/uL 0.33-0.92 H = 742-7) EOS x10^3 (test code = 0.24 10*3/uL 0.03-0.39 711-2) BASO x10^3 (test code 0.05 10*3/uL 0.01-0.07 = 704-7) Lab Interpretation Abnormal (test code = 16315-7) [facility] [id number] 06:30:00 Test Item Value Reference Range Interpretation Comments SODIUM (test code = 140 mmol/L 136-145 N NA) POTASSIUM (test code = 4.5 mmol/L 3.5-5.1 N K) CHLORIDE (test code = 104.0 mmol/L 98-107 N CL) CARBON DIOXIDE (test 26.1 mmol/L 21-32 N code = CO2) GLUCOSE (test code = 102 mg/dL 70-110 N GLU) BLOOD UREA NITROGEN 15 mg/dL 7-18 N (test code = BUN) GLOMERULAR FILTRATION 45.3 >60 Unit o f measure: RATE (test code = GFR) mL/mi n/1.73 m8Jevwshzin Range:Healthy Adults >90 mL/min/1.73 m2 For Chronic Kidney Disease: St age II Mild Decrease in GFR 60-90 St age III Moderate Decrease in GFR 30-59 Stage IV Severe Decre ase in GFR 15- 29 Stage V Kidney Failure <15 CREATININE (test code 1.23 mg/dL 0.55-1.30 N = CREAT) CALCIUM (test code = 8.5 mg/dL 8.2-10.1 N CA) HGB [id number] 06:07:00 Test Item Value Reference Range Interpretation Comments HEMOGLOBIN (test code = HGB) 11.6 g/dL 12-16 L HEMATOCRIT (test code = HCT) 36.4 % 37-47 L PROTHROMBIN [id number] 14:21:00 Test Item Value Reference Range Interpretation [...] BLOOD, PT every other day NTHROMBOPLASTIN TIME [id number] 14:21:00 Test Item Value Reference Range Interpretation Comments PTT ACTIVATED (test 42.3 secs 24.9-37.0 HH VERIFIED BY REPEAT code = APTT) ANALYSIS.CRITIC AL VALUE CALLED TO [facility] WITH ' OFFICEREAD BACK & CONFIRMED? YESB Y F.LAB.AEG 01/26 1420 IS PATIENT ON ANTICOAGULANTS ? [facility] been notified if Patient is on Heparin Drip? NOIf Yes, orderCBC, OCCULT BLOOD, PT every other day NCOMPREHENSIVE METABOLIC [id number] 13:08:00 Test Item Value Reference Range Interpretation [...] RATE (test code = GFR) mL/mi n/1.73 [id number] Range:Healthy Adults >90 mL/min/1.73 m2 For Chronic [...] TOTAL (test code = ALKP) CBC W/AUTO [id number] 12:29:00 Test Item Value Reference Range Interpretation [...] (test 0 % 0-0 N code = NRBC)"
[2021-02-20] MEDS ORDERED: ONDANSETRON 4 MG (ODT) TAB ONE (14:44)
--- NOTE | 2021-02-20 15:24 | RAD REPORT ---
EXAM DESCRIPTION: RAD - Chest Pa And Lat (2 Views) - 02/20/2021 3:10 pm CLINICAL HISTORY: COUGH COMPARISON: Chest Single View dated 05/04/2020; Chest Single View dated 02/19/2019 FINDINGS: Lines: None. Lungs: No evidence of edema or pneumonia. Pleural: No significant pleural effusions or pneumothorax. Cardiac: The heart size is within normal limits. Bones: No acute fractures. Other: IMPRESSION: No acute cardiopulmonary disease.
[2021-02-20 16:03] LABS: SARS-COV-2 RT PCR NEGATIVE (NEGATIVE)
--- NOTE | 2021-02-20 16:20 | EDPHYS ---
Physician Documentation [facility] Name: Princess Deras Age: 55 yrs Sex: Female : 1965 Arrival Date: 02/20/2021 Time: 14:15 Bed Waiting Private MD: DINESH Physician Janes Moe HPI: 02/20 16:17 This 55 yrs old Female presents to ER via Ambulatory with complaints of Diarrhea, kb Headache, Nausea. 16:17 The patient or guardian reports cough. Onset: The symptoms/episode began/occurred 3 kb day(s) ago. Severity of symptoms: At their worst the symptoms were mild, moderate, in the emergency department the symptoms are unchanged. Modifying factors: The symptoms are alleviated by nothing, the symptoms are aggravated by nothing. Associated signs and symptoms: Pertinent positives: diarrhea, nausea, Pertinent negatives: chest pain, ear ache, fever, rhinorrhea, sore throat, vomiting. The patient has not experienced similar symptoms in the past. The patient has not recently seen a physician. Patient reports cough, headache, diarrhea, nausea for 3 days. States cough started 2 weeks ago.. Historical: - Allergies: 14:36 No Known Allergies; vg1 - Home Meds: 14:36 levothyroxine oral [Active]; venlafaxine Oral once daily [Active]; vg1 - PMHx: 14:36 Depression; Hypothyroidism; vg1 - PSHx: 14:36 knee replacement; Left kidney donated; vg1 - Immunization history:: Client reports receiving the 2nd dose of the Covid vaccine. - Social history:: Smoking status: Patient denies any tobacco usage or history of. ROS: 16:19 Cardiovascular: Negative for chest pain, palpitations, and edema. kb 16:19 Constitutional: Positive for malaise. 16:19 Respiratory: Positive for cough, Negative for dyspnea on exertion, hemoptysis, orthopnea, pleurisy, shortness of breath, sputum production, wheezing. 16:19 Abdomen/GI: Positive for nausea, diarrhea. 16:19 All other systems are negative. Exam: 16:18 Constitutional: This is a well developed, well nourished patient who is awake, alert, kb and in no acute distress. Head/Face: Normocephalic, atraumatic. ENT: Moist Mucous membranes Respiratory: Respirations even and unlabored. No increased work of breathing. Talking in full sentences Abdomen/GI: Soft, non-tender. No distention Skin: Warm, dry with normal turgor. Normal color. MS/ Extremity: Pulses equal, no cyanosis. Neurovascular intact. Full, normal range of motion. Neuro: Awake and alert, GCS 15, oriented to person, place, time, and situation. Moves all extremities. Normal gait. Psych: Awake, alert, with orientation to person, place and time. Behavior, mood, and affect are within normal limits. Vital Signs: 14:35 BP 157 / 92; Pulse 70; Resp 18; Temp 97.7(O); Pulse Ox 100% ; Weight 106.59 kg; Height vg1 5 ft. 11 in. (180.34 cm); Pain 10/10; 14:35 Body Mass Index 32.78 (106.59 kg, 180.34 cm) vg1 MDM: 14:42 Patient medically screened. kb 16:18 Data reviewed: vital signs, nurses notes. Data interpreted: Pulse oximetry: on room air kb is 100 %. Interpretation: normal. Counseling: I had a detailed discussion with the patient and/or guardian regarding: the historical points, exam findings, and any diagnostic results supporting the discharge/admit diagnosis, lab results, radiology results, the need for outpatient follow up, a family practitioner, to return to the emergency department if symptoms worsen or persist or if there are any questions or concerns that arise at home. 02/20 14:38 Order name: COVID-19/FLU A+B (Document "Date of Onset" if Symptomatic); Complete Time: vg1 16:06 02/20 14:43 Order name: Chest Pa And Lat (2 Views) XRAY; Complete Time: 15:25 kb Administered Medications: 14:45 Drug: Ondansetron 4 mg Route: PO; vg1 16:28 Follow up: Response: Marked relief of symptoms vg1 Disposition: 02/21 07:04 Co-signature as Attending Physician, Janes Moe MD I agree with the assessment and fuad plan of care. Disposition Summary: 02/20/21 16:19 Discharge Ordered Location: Home kb Condition: Stable kb Diagnosis - Acute upper respiratory infection, unspecified kb Followup: kb - With: Emergency Department - When: As needed - Reason: Worsening of condition Followup: kb - With: Private Physician - When: 2 - 3 days - Reason: Recheck today's complaints, Continuance of care, Re-evaluation by your physician Discharge Instructions: - Discharge Summary Sheet kb - Upper Respiratory Infection, Adult, [id number] kb - Viral Respiratory Infection, [id number] kb Forms: - Medication Reconciliation Form kb - Thank You Letter kb - Antibiotic Education kb - Prescription Opioid Use kb Prescriptions: - Zofran 4 mg Oral Tablet - take 1 tablet by ORAL route every 6 hours As needed; 20 tablet; Refills: 0, kb Product Selection Permitted - Tessalon Perles 100 mg Oral Capsule - take 1 capsule by ORAL route every 8 hours As needed; 15 capsule; Refills: 0, kb Product Selection Permitted Signatures: Dispatcher [employer] EDLeela Doss, SEATING CAPTAIN-C SEATING CAPTAIN-Janes Watt MD MD cha Garcia, Victoria, RN RN vg1
--- NOTE | 2021-02-20 16:20 | ER ---
Nurse's Notes [facility] Name: Princess Deras Age: 55 yrs Sex: Female : 1965 Arrival Date: 02/20/2021 Time: 14:15 Bed Waiting Private MD: Diagnosis: Acute upper respiratory infection, unspecified Presentation: 02/20 14:35 Chief complaint: Patient states: nausea, diarrhea, headache, and cough x 3 days. vg1 Coronavirus screen: Vaccine status: Patient reports receiving the 2nd dose of the covid vaccine. Ebola Screen: Patient negative for fever greater than or equal to 101.5 degrees Fahrenheit, and additional compatible Ebola Virus Disease symptoms. Initial Sepsis Screen: Does the patient meet any 2 criteria? No. Patient's initial sepsis screen is negative. Does the patient have a suspected source of infection? No. Patient's initial sepsis screen is negative. Risk Assessment: Do you want to hurt yourself or someone else? Patient reports no desire to harm self or others. Onset of symptoms was February 17, 2021. 14:35 Method Of Arrival: Ambulatory 1 14:35 Acuity: PIYUSH 3 vg1 Triage Assessment: 14:36 General: Appears in no apparent distress. uncomfortable, Behavior is calm, cooperative. vg1 Pain: Complains of pain in head Pain currently is 10 out of 10 on a pain scale. GI: Reports diarrhea. Historical: - Allergies: 14:36 No Known Allergies; vg1 - Home Meds: 14:36 levothyroxine oral [Active]; venlafaxine Oral once daily [Active]; vg1 - PMHx: 14:36 Depression; Hypothyroidism; vg1 - PSHx: 14:36 knee replacement; Left kidney donated; vg1 - Immunization history:: Client reports receiving the 2nd dose of the Covid vaccine. - Social history:: Smoking status: Patient denies any tobacco usage or history of. Screenin:28 Abuse screen: Denies threats or abuse. Nutritional screening: No deficits noted. vg1 Tuberculosis screening: No symptoms or risk factors identified. Fall Risk None identified. Assessment: 16:28 Reassessment: Patient appears in no apparent distress at this time. Patient and/or vg1 family updated on plan of care and expected duration. Pain level reassessed. Patient is alert, oriented x 3, equal unlabored respirations, skin warm/dry/pink. Patient states feeling better. Vital Signs: 14:35 BP 157 / 92; Pulse 70; Resp 18; Temp 97.7(O); Pulse Ox 100% ; Weight 106.59 kg; Height vg1 5 ft. 11 in. (180.34 cm); Pain 10/10; 14:35 Body Mass Index 32.78 (106.59 kg, 180.34 cm) vg1 ED Course: 14:15 Patient arrived in ED. as 14:36 Triage completed. vg1 14:36 Arm band placed on. vg1 14:40 Leela Maldonado FNP-C is PHCP. kb 14:40 Janes Moe MD is Attending Physician. kb 14:40 COVID swab sent to lab. Flu and/or RSV swab sent to lab. vg1 15:10 Chest Pa And Lat (2 Views) XRAY In Process Unspecified. EDMS 16:28 No provider procedures requiring assistance completed. Patient did not have IV access vg1 during this emergency room visit. Administered Medications: 14:45 Drug: Ondansetron 4 mg Route: PO; vg1 16:28 Follow up: Response: Marked relief of symptoms vg1 Outcome: 16:19 Discharge ordered by . kb 16:28 Discharged to home ambulatory, with family. vg1 16:28 Condition: stable 16:28 Discharge instructions given to patient, family, Instructed on discharge instructions, follow up and referral plans. medication usage, Demonstrated understanding of instructions, follow-up care, medications, Prescriptions given X 2. 16:29 Patient left the ED. vg1 Signatures: Dispatcher [employer] EDID Leela Maldonado FNP-C FNP-Ckb Martinez, Amelia as Garcia, Victoria, RN RN vg1
[2021-02-20 16:48] VITALS: BP 157/92; TEMP 97.7; O2SAT 100
== END 2021-02-20 16:29 | disposition home or self-care (01) ==
LOC: ER 14:12
DX: J06.9 Acute upper respiratory infection, unspecified (principal); Z20.822 Contact with and (suspected) exposure to COVID-19; E03.9 Hypothyroidism, unspecified; F32.A Depression, unspecified
CPT/HCPCS: 0240U; 71046; 99284